=== PATIENT | female | born 1990 | race Two or more races ===

== ENCOUNTER 2020-08-27 14:08 | Outpatient (REF) | payer MEDICAID, SELFPAY ==
[2020-08-27 17:26] LABS: Syphilis Screen Nonreactive (Nonreactive)
[2020-08-28 01:50] LABS: CT PCR NOT DETECTED (Not Detect.); NG PCR NOT DETECTED (Not Detect.)
[2020-08-29 08:35] LABS: HBsAGNum1 0.14 S/CO (0.00-0.99); HIV AB/AG Nonreactive (Nonreactive); HIV Num 1 0.09 S/CO (0.00-0.99); Hepatitis B Surface Antigen Negative (Negative)
[2020-08-29 09:36] LABS: ~HepC Num1 0.15 S/CO (0.00-0.79); ~Hepatitis C Antibody Nonreactive (Nonreactive)
== END 2020-08-27 14:09 | disposition home or self-care (01) ==
LOC: HO.LAB 14:08
PROVIDERS: PCP Nurse Practitioner Family; Referring Provider Nurse Practitioner Family; Visit Provider Advanced Practice Midwife
DX: Z01.419 Encounter for gynecological examination (general) (routine) without abnormal findings (principal); R10.2 Pelvic and perineal pain; N94.10 Unspecified dyspareunia; Z20.2 Contact with and (suspected) exposure to infections with a predominantly sexual mode of transmission
CPT/HCPCS: 86780; 86803; 87340; 87389; 87491; 87591

== ENCOUNTER 2020-08-28 09:21 | Outpatient (REF) | payer MEDICAID, SELFPAY ==
[2020-08-31 07:48] LABS: HPV mRNA E6/E7 Not Detected (Not Detected)
== END 2020-08-28 09:22 | disposition home or self-care (01) ==
LOC: HO.LAB 09:21
PROVIDERS: Visit Provider Advanced Practice Midwife
DX: Z01.419 Encounter for gynecological examination (general) (routine) without abnormal findings (principal); Z20.2 Contact with and (suspected) exposure to infections with a predominantly sexual mode of transmission; Z11.4 Encounter for screening for human immunodeficiency virus [HIV]; Z11.8 Encounter for screening for other infectious and parasitic diseases; Z11.3 Encounter for screening for infections with a predominantly sexual mode of transmission; Z11.51 Encounter for screening for human papillomavirus (HPV)
CPT/HCPCS: 87624; 87625; 88142

== ENCOUNTER 2020-08-30 14:16 | Outpatient (REF) | payer MEDICAID, SELFPAY ==
--- NOTE | 2020-08-30 14:19 | US_ITS ---
EXAMINATION: US PELVIS CLINICAL INFORMATION: Pelvic and perineal pain. COMPARISON: None TECHNIQUE: Transabdominal and transvaginal ultrasound of the pelvis is performed. FINDINGS: The uterus is anteverted and anteflexed and measures 6.8 cm in length, 3.0 cm in AP and 4.3 cm in transverse dimension. The endometrial thickness is 0.2 cm. Uterus is homogeneous in echotexture without focal lesion. Right ovary measures 3.0 x 1.6 x 1.1 cm and volume 2.8 mL. There are multiple small follicles visualized. Previously right ovary measured 3.2 x 2.7 x 1.3 cm. Left ovary measures 2.4 x 1.6 x 1.0 cm and volume 2.0 mL. There are small follicular cysts seen. Previously left ovary measured 3.3 x 1.7 x 1.3 cm. There is no free fluid in the cul-de-sac. US/US transvaginal IMPRESSION: Unremarkable uterus. Unremarkable ovaries. No free fluid in the cul-de-sac.
--- NOTE | 2020-08-30 14:19 | US_ITS ---
EXAMINATION: US PELVIS CLINICAL INFORMATION: Pelvic and perineal pain. COMPARISON: None TECHNIQUE: Transabdominal and transvaginal ultrasound of the pelvis is performed. FINDINGS: The uterus is anteverted and anteflexed and measures 6.8 cm in length, 3.0 cm in AP and 4.3 cm in transverse dimension. The endometrial thickness is 0.2 cm. Uterus is homogeneous in echotexture without focal lesion. Right ovary measures 3.0 x 1.6 x 1.1 cm and volume 2.8 mL. There are multiple small follicles visualized. Previously right ovary measured 3.2 x 2.7 x 1.3 cm. Left ovary measures 2.4 x 1.6 x 1.0 cm and volume 2.0 mL. There are small follicular cysts seen. Previously left ovary measured 3.3 x 1.7 x 1.3 cm. There is no free fluid in the cul-de-sac. US/US pelvic limited IMPRESSION: Unremarkable uterus. Unremarkable ovaries. No free fluid in the cul-de-sac.
== END 2020-08-30 14:17 | disposition home or self-care (01) ==
LOC: HO.US 14:16
PROVIDERS: Visit Provider Advanced Practice Midwife
DX: R10.2 Pelvic and perineal pain (principal); N94.10 Unspecified dyspareunia
CPT/HCPCS: 76830; 76857

== ENCOUNTER → 2020-09-24 11:14 | Outpatient (BNVA) | payer MEDICAID, SELFPAY | PROVIDERS: Visit Provider Advanced Practice Midwife | DX: Z76.89 Persons encountering health services in other specified circumstances (principal) ==

== ENCOUNTER → 2020-11-13 11:35 | Outpatient (BNVA) | payer MEDICAID, SELFPAY | PROVIDERS: Visit Provider Advanced Practice Midwife | DX: Z76.89 Persons encountering health services in other specified circumstances (principal) ==

== ENCOUNTER → 2020-11-16 12:47 | Outpatient (BNVA) | payer MEDICAID, SELFPAY | PROVIDERS: Visit Provider Advanced Practice Midwife | DX: Z76.89 Persons encountering health services in other specified circumstances (principal) | CPT/HCPCS: 96372; 99211; J1050 ==

== ENCOUNTER → 2021-02-01 10:48 | Outpatient (BNVA) | payer MEDICAID, SELFPAY | PROVIDERS: PCP Nurse Practitioner Family; Visit Provider Advanced Practice Midwife | DX: Z30.42 Encounter for surveillance of injectable contraceptive (principal) | CPT/HCPCS: 96372; 99211; J1050 ==

== ENCOUNTER 2021-03-25 12:12 | Outpatient (REF) | payer MEDICAID, SELFPAY ==
[2021-03-25 13:02] LABS: COVID-19 Test Negative (Negative); IDNOW Serial# 55D5AD1C
== END 2021-03-25 12:13 | disposition home or self-care (01) ==
LOC: HO.LAB 12:12
PROVIDERS: Visit Provider Internal Medicine
DX: Z20.822 Contact with and (suspected) exposure to COVID-19 (principal)
CPT/HCPCS: 36415; 87635; C9803

== ENCOUNTER → 2021-04-22 12:50 | Outpatient (BNVA) | payer MEDICAID, SELFPAY | PROVIDERS: PCP Nurse Practitioner Family; Visit Provider Advanced Practice Midwife | DX: Z30.42 Encounter for surveillance of injectable contraceptive (principal) | CPT/HCPCS: 96372; 99211 ==

== ENCOUNTER → 2021-07-16 09:36 | Outpatient (BNVA) | payer MEDICAID, SELFPAY | PROVIDERS: Visit Provider Advanced Practice Midwife | DX: Z30.42 Encounter for surveillance of injectable contraceptive (principal); J30.1 Allergic rhinitis due to pollen; J30.89 Other allergic rhinitis; Z88.8 Allergy status to other drugs, medicaments and biological substances | CPT/HCPCS: 96372; 99211 ==

== ENCOUNTER 2021-08-27 11:12 | Outpatient (REF) | payer MEDICAID, SELFPAY | END 2021-08-27 11:13 | disposition home or self-care (01) | LOC: HO.LAB 11:12 | PROVIDERS: Visit Provider Internal Medicine | DX: Z20.822 Contact with and (suspected) exposure to COVID-19 (principal) | CPT/HCPCS: C9803; U0003; U0005 ==

== ENCOUNTER → 2021-10-10 11:10 | Outpatient (BNVA) | payer MEDICAID, SELFPAY | PROVIDERS: PCP Internal Medicine; Visit Provider Advanced Practice Midwife | DX: Z30.42 Encounter for surveillance of injectable contraceptive (principal) | CPT/HCPCS: 96372; 99211 ==

== ENCOUNTER 2021-10-23 08:55 | Outpatient (REF) | payer MEDICAID, SELFPAY ==
[2021-10-23 10:59] LABS: Hematocrit 38.7 % (37.0-47.0); Hemoglobin 12.6 g/dl (12.0-16.0); Mean Corpuscular HGB Conc 32.6 g/dl (31.0-35.0); Mean Corpuscular Hemoglobin 26.8 pg (27.0-33.0); Mean Corpuscular Volume 82.3 fL (80.0-98.0); Mean Platelet Volume 9.6 fL (9.4-12.3); Platelet Count 251 X10*3/uL (160-400); Red Cell Distribution Width 14.4 % (11.0-16.0); White Blood Count 8.2 X10*3/uL (4.8-10.8)
[2021-10-23 11:24] LABS: Alanine Aminotransferase 18 U/L (0-31); Albumin Level 4.2 g/dL (3.5-5.0); Alkaline Phosphatase 112 U/L (39-117); Anion Gap 10 (12-20); Aspartate Amino Transferase 16 U/L (5-31); Bilirubin Total 0.5 mg/dL (0.0-1.0); Blood Urea Nitrogen 10 mg/dL (9-16); Calcium 10.1 mg/dL (8.4-10.2); Carbon Dioxide 23 mmol/L (22-29); Chloride 112 mmol/L (96-108); Estimated Glomerular Filt Rate > 60; Glucose Random 77 mg/dL (60-115); Potassium 4.3 mmol/L (3.3-5.1); Sodium 141 mmol/L (135-145); Total Protein 7.3 g/dL (6.5-8.0)
== END 2021-10-23 08:56 | disposition home or self-care (01) ==
LOC: HO.LAB 08:55
PROVIDERS: PCP Internal Medicine; Referring Provider Internal Medicine; Visit Provider Nurse Practitioner Family
DX: K21.9 Gastro-esophageal reflux disease without esophagitis (principal); K59.00 Constipation, unspecified; F41.8 Other specified anxiety disorders; J30.1 Allergic rhinitis due to pollen; Z86.14 Personal history of Methicillin resistant Staphylococcus aureus infection; Z80.0 Family history of malignant neoplasm of digestive organs; Z88.8 Allergy status to other drugs, medicaments and biological substances
CPT/HCPCS: 36415; 80053; 85027; 99202

== ENCOUNTER 2022-01-03 09:30 | Outpatient (REF) | payer MEDICAID, SELFPAY ==
[2022-01-03 16:23] LABS: CT PCR NOT DETECTED (Not Detect.); NG PCR NOT DETECTED (Not Detect.)
[2022-01-04 09:59] LABS: BV Int Neg Control Negative (Negative); BV Int Pos Control Positive (Positive)
== END 2022-01-03 09:31 | disposition home or self-care (01) ==
LOC: HO.LAB 09:30
PROVIDERS: PCP Internal Medicine; Visit Provider Advanced Practice Midwife
DX: Z30.42 Encounter for surveillance of injectable contraceptive (principal); N89.8 Other specified noninflammatory disorders of vagina; R82.998 Other abnormal findings in urine; Z20.2 Contact with and (suspected) exposure to infections with a predominantly sexual mode of transmission
CPT/HCPCS: 87480; 87491; 87510; 87591; 87660; 96372

== ENCOUNTER 2022-01-06 10:53 | Outpatient (REF) | payer MEDICAID, SELFPAY ==
[2022-01-06 13:03] LABS: Syphilis Screen Nonreactive (Nonreactive)
[2022-01-07 05:33] LABS: HBc Num1 0.09 S/CO (0.00-0.79); Hepatitis B Core Antibody Nonreactive (Nonreactive); ~HepC Num1 0.11 S/CO (0.00-0.79); ~Hepatitis C Antibody Nonreactive (Nonreactive)
[2022-01-07 05:42] LABS: HIV AB/AG Nonreactive (Nonreactive); HIV Num 1 0.09 S/CO (0.00-0.99)
== END 2022-01-06 10:54 | disposition home or self-care (01) ==
LOC: HO.LAB 10:53
PROVIDERS: PCP Internal Medicine; Visit Provider Advanced Practice Midwife
DX: Z20.2 Contact with and (suspected) exposure to infections with a predominantly sexual mode of transmission (principal)
CPT/HCPCS: 36415; 86704; 86780; 86803; 87389

== ENCOUNTER 2022-02-04 12:26 | Day surgery (SDC) | payer MEDICAID, SELFPAY ==
[2022-01-30 14:59] VITALS: BMI 25.2
--- NOTE | 2022-02-03 10:31 | P.CONAN_ITS ---
Documented by User: Citlaly oKch NP 02/03/22 10:32 HPI - Anesthesia Eval Consult details Narrative: 31yo F for Colonoscopy PMFSH Active Problems Active Problems: All Active Problems (Updated 11/13/20 @ 13:24 by Gail Gimenez) Well woman exam with routine gynecological exam (Acute) Pelvic pain (Acute) Dyspareunia (Acute) Potential exposure to STD (Acute) control counseling (Acute) Depot contraception (Acute) Past Medical History Medical History Anxiety Depression GERD (gastroesophageal reflux disease) Migraine with aura MRSA (methicillin resistant Staphylococcus aureus) Poor weight gain in adult Family History Family History Mother HTN (hypertension) Colon cancer Surgical History Surgical History Hx of laparoscopy Social History Social History Alcohol intake: current Alcohol intake frequency: holidays/special occasions only Patient Tobacco Use Status: Former Tobacco user Quit Date: >1yr ago Use of substances other than those prescribed or required for medical reasons: No Are you DNR?: No Advance Directives: No Advance Directives Information Provided: Yes Gender identity: Female Meds Allergies Allergy/AdvReac Type Severity Reaction Status Date / Time Seasonal Allergies Allergy Intermediate Itchy Eyes Verified 02/04/22 13:05 trazodone Allergy Intermediate FACIAL Verified 02/04/22 13:05 SWELLING, swelling Home Medications Medication Instructions Recorded Confirmed Last Taken Type azelastine 205.5 mcg (0.15 %) 1 spray INTRANASAL BID 08/27/20 11/13/20 Unknown History nasal spray bupropion HCl 150 mg 24 hr tablet, 150 mg PO QAM 08/27/20 11/13/20 Unknown History extended release fluticasone propionate 50 1 spray INTRANASAL DAILY 08/27/20 11/13/20 Unknown History mcg/actuation nasal spray,suspension (Allergy Relief (fluticasone)) ibuprofen 800 mg tablet 800 mg PO Q8H 08/27/20 11/13/20 Unknown History diphenhydramine HCl 25 mg capsule 25 mg PO TID PRN 09/24/20 11/13/20 Unknown History (Benadryl) omeprazole 20 mg capsule,delayed 20 mg PO BID 10/23/21 Unknown History release Exam Exam Date and Time: February 03, 2022 1031 Height,Weight and Vital Signs: Height 5 ft 6 in Weight 70.76 kg Pertinent Lab Results Pertinent Lab Results: Laboratory Tests 10/23/21 10/23/21 10:26 10:26 WBC 8.2 Hgb 12.6 Hct 38.7 Plt Count 251 Sodium 141 Potassium 4.3 Chloride 112 H Carbon Dioxide 23 BUN 10 Creatinine 0.77 Assessment and Plan Assessment Anesthesia Assessment: Chart Reviewed Documented by User: Michael Bobo MD 02/04/22 13:33 [facility] Past Medical History Medical History Anxiety Depression GERD (gastroesophageal reflux disease) Migraine with aura MRSA (methicillin resistant Staphylococcus aureus) Poor weight gain in adult Family History Family History Mother HTN (hypertension) Colon cancer Surgical History Surgical History Hx of laparoscopy Social History Social History Alcohol intake: current Alcohol intake frequency: holidays/special occasions only Patient Tobacco Use Status: Former Tobacco user Quit Date: >1yr ago Use of substances other than those prescribed or required for medical reasons: No Are you DNR?: No Advance Directives: No Advance Directives Information Provided: Yes Gender identity: Female Meds Allergies Allergy/AdvReac Type Severity Reaction Status Date / Time Seasonal Allergies Allergy Intermediate Itchy Eyes Verified 02/04/22 13:05 trazodone Allergy Intermediate FACIAL Verified 02/04/22 13:05 SWELLING, swelling Home Medications Medication Instructions Recorded Confirmed Last Taken Type azelastine 205.5 mcg (0.15 %) 1 spray INTRANASAL BID 08/27/20 11/13/20 Unknown History nasal spray bupropion HCl 150 mg 24 hr tablet, 150 mg PO QAM 08/27/20 11/13/20 Unknown History extended release fluticasone propionate 50 1 spray INTRANASAL DAILY 08/27/20 11/13/20 Unknown History mcg/actuation nasal spray,suspension (Allergy Relief (fluticasone)) ibuprofen 800 mg tablet 800 mg PO Q8H 08/27/20 11/13/20 Unknown History diphenhydramine HCl 25 mg capsule 25 mg PO TID PRN 09/24/20 11/13/20 Unknown History (Benadryl) omeprazole 20 mg capsule,delayed 20 mg PO BID 10/23/21 Unknown History release Exam Airway Mallampati Class: II TM Dist: >3cm Neck ROM: Full Documented by User: Cholo Decker MD 02/04/22 13:24 [facility] Past Medical History Medical History Anxiety Depression GERD (gastroesophageal reflux disease) Migraine with aura MRSA (methicillin resistant Staphylococcus aureus) Poor weight gain in adult Family History Family History Mother HTN (hypertension) Colon cancer Family history of problems with anesthesia: No Surgical History Surgical History Hx of laparoscopy History of Problems with Anesthesia: No Social History Social History Alcohol intake: current Alcohol intake frequency: holidays/special occasions only Patient Tobacco Use Status: Former Tobacco user Quit Date: >1yr ago Use of substances other than those prescribed or required for medical reasons: No Are you DNR?: No Advance Directives: No Advance Directives Information Provided: Yes Gender identity: Female Meds Allergies Allergy/AdvReac Type Severity Reaction Status Date / Time Seasonal Allergies Allergy Intermediate Itchy Eyes Verified 02/04/22 13:05 trazodone Allergy Intermediate FACIAL Verified 02/04/22 13:05 SWELLING, swelling Home Medications Medication Instructions Recorded Confirmed Last Taken Type azelastine 205.5 mcg (0.15 %) 1 spray INTRANASAL BID 08/27/20 11/13/20 Unknown History nasal spray bupropion HCl 150 mg 24 hr tablet, 150 mg PO QAM 08/27/20 11/13/20 Unknown History extended release fluticasone propionate 50 1 spray INTRANASAL DAILY 08/27/20 11/13/20 Unknown History mcg/actuation nasal spray,suspension (Allergy Relief (fluticasone)) ibuprofen 800 mg tablet 800 mg PO Q8H 08/27/20 11/13/20 Unknown History diphenhydramine HCl 25 mg capsule 25 mg PO TID PRN 09/24/20 11/13/20 Unknown History (Benadryl) omeprazole 20 mg capsule,delayed 20 mg PO BID 10/23/21 Unknown History release Exam Airway Loose/Missing/Broken Teeth: No Heart: [id number] Lungs: cta b/l Assessment and Plan Assessment Anesthesia Assessment: Anesthesia Plan Discussed Final Anesthetic Review Family History of Problems with Anesthesia: No History of Problems with Anesthesia: No NPO: Yes ASA Class: II Final Preanesthetic Review: No Changes in Pt Med Stat, Meds/Allgs Chart Reviewed, Consent Obtained/Reviewed and Anes Risks/Benef Reviewed Patient Risk: Intermediate Procedure Risk: Low Assessment/Block/Sedation in SS: Assess/Block/Sedation-SS Anesthetic Plan Anesthetic Plan: MAC: and Agree w/ Assess. and Plan Disposition: Standard PACU
[2022-02-04 13:03] LABS: UPreg QC Valid YES; Urine Pregnancy NEGATIVE (NEGATIVE)
--- NOTE | 2022-02-04 13:03 | P.HPSUR_ITS ---
Pre-Procedural Eval Section A Date of Service: 02/04/22 Section B Chief Complaint: screening Details of Present Illness: FH CRC in mother Relevant Family History (Specify if Yes): Yes Relevant Social History: None Present Medications: see Short Stay Collaborative assessment Medical History: Significant History (Anxiety Depression GERD (gastroesophageal reflux disease) Migraine with aura MRSA (methicillin resistant Staphylococcus aureus) Poor weight gain in adult) History of Previous Operations: Relevant previous surgery/procedure and date(s) (laparoscopy) Allergies: Allergies Allergy/AdvReac Type Severity Reaction Status Date / Time Seasonal Allergies Allergy Intermediate Itchy Eyes Verified 01/30/22 11:25 trazodone Allergy Intermediate FACIAL Verified 01/03/22 09:59 SWELLING, swelling Review of Systems Sugical H&P ROS: Negative: Constitution, Cardiovascular, Respiratory, Neurological, Psychiatric, Hem-Onc, Allergic/Immunologic, Gastrointestinal, Genitourinary, Musculoskeletal, Integumentary, Endocrine and E yes/Ears/Nose/Throat Exam Surgical H&P Exam: Normal: HEENT, Normal: Heart, Normal: Lungs, Normal: Extremities, Normal: Abdomen, Normal: Skin and Normal: Neurological Plan Diagnosis/Plan: Unchanged I have reviewed the history and physical and performed a pertinent physical examination on my patient. No changes have occurred unless specified.
[2022-02-04 13:05] VITALS: BP 131/85; PULSE 86; RESP 16; TEMP 36.7; O2SAT 100
[2022-02-04] MEDS: Lactated Ringers 1,000 ML 100 ML IVCONT (13:14)
--- NOTE | 2022-02-04 13:29 | PM.OP ---
Brief Operative Note Date of Service: 02/04/22 Pre-op diagnosis: screening colonoscopy, FH of CRC in mother Post-op diagnosis: same Procedure: see op note Surgeon: Mervat England MD Anesthesia: MAC Was an Personal Finance Instructor used for this Procedure?: No Estimated blood loss (mL): 0 Condition: stable Disposition: PACU
--- NOTE | 2022-02-04 13:29 | W.PM.OPN ---
Operative Note Operative Note Date of Service: 02/04/22 Narrative: Operative Information Procedure Description: Colonoscopy Indication: screening colonoscopy, FH of CRC in mother Anesthesia: MAC COLONOSCOPY Instrument: Olympus variable stiffness pediatric scope 190L Colonoscopy Monitoring: Vital signs and clinical assessment, continuous EKG monitoring, Pulse oximetry, Carbon Dioxide monitoring and blood pressure monitoring were done throughout the procedure. Colon withdrawal time was 6 minutes. Procedure: The patient was placed in the left lateral decubitis position and pre-procedure medications were administered. After a digital rectal examination of the ano-rectum, the video colonoscope was inserted into the rectum and advanced through the colon to the cecum/TI. The colonoscope was slowly withdrawn in a retrograde panoramic fashion and the colon mucosa was carefully examined including a retroflexed view of the rectum. Findings and interventions are described below. Procedure Difficulty: easy Findings: Terminal Ileum-normal right sided retroflexion was normal Cecum:normal, there was a bulge on the lateral wall of the cecum seemed to be extrinsic Ascending Colon: normal Transverse Colon -normal Descending Colon:normal Sigmoid Colon: normal Rectum: Retroflexion with small internal hemorrhoids, grade I Anorectum - normal Colon preparation: [facility] Bowel Preparation Scale Right colon; 2 Transverse colon: 3 Left colon; 2 (0 = Unprepared colon segment with mucosa not seen due to solid stool that cannot be cleared. 1 = Portion of mucosa of the colon segment seen, but other areas of the colon segment not well seen due to staining, residual stool and/or opaque liquid. 2 = Minor amount of residual staining, small fragments of stool and/or opaque liquid, but mucosa of colon segment seen well. 3 = Entire mucosa of colon segment seen well with no residual staining, small fragments of stool or opaque liquid) Impression and Post Procedure Diagnosis: internal hemorrhoids extrinsic pressure on cecum Plan: High fiber diet leaflet Avoid straining at stool, epsom salts and sitz bath, anusol supps or cream Repeat Colonoscopy in 5 years due to FH of CRC or earlier if clinically indicated Last transvaginal US 2019 was unremarkable, will d/w patient about getting a Ct scan Above findings were reviewed with the patient and relevant handouts were provided if indicated.
[2022-02-04 13:50] VITALS: BP 112/67; PULSE 76; RESP 16; TEMP 37; O2SAT 99
[2022-02-04 14:05] VITALS: BP 118/53; PULSE 72; RESP 16; TEMP 36.7; O2SAT 100
== END 2022-02-04 14:44 | disposition home or self-care (01) ==
PROVIDERS: Nurse Practitioner; PCP Internal Medicine; Visit Provider Internal Medicine Gastroenterology
PROC: 0DJD8ZZ Inspection of Lower Intestinal Tract, Via Natural or Artificial Opening Endoscopic (ICD-10-PCS; CPT 45378; principal; 2022-02-04 13:30)
DX: Z12.11 Encounter for screening for malignant neoplasm of colon (principal); Z80.0 Family history of malignant neoplasm of digestive organs; K63.89 Other specified diseases of intestine; K64.0 First degree hemorrhoids; K21.9 Gastro-esophageal reflux disease without esophagitis; R63.5 Abnormal weight gain; Z68.25 Body mass index [BMI] 25.0-25.9, adult; G43.109 Migraine with aura, not intractable, without status migrainosus; F32.9 Major depressive disorder, single episode, unspecified; Z79.899 Other long term (current) drug therapy; Z88.8 Allergy status to other drugs, medicaments and biological substances; Z86.14 Personal history of Methicillin resistant Staphylococcus aureus infection; Z87.891 Personal history of nicotine dependence
CPT/HCPCS: 45378; 81025

== ENCOUNTER 2022-02-24 08:32 | Outpatient (REF) | payer MEDICAID, SELFPAY ==
--- NOTE | ~2022-02-24 | CT_ITS ---
EXAMINATION: CT ABDOMEN AND PELVIS WITH CONTRAST CLINICAL INFORMATION: Extrinsic compression of cecum and right colon. COMPARISON: None TECHNIQUE: Multidetector volumetric images were obtained from the superior aspect of the liver through the pubic symphysis following administration 85 mL of Omnipaque 350 intravenous contrast. Sagittal and coronal reformatted images were obtained on the technologist's workstation. Oral contrast: Yes previous pelvic ultrasound August [address] of the abdomen and pelvis April [address] examination was performed using dose optimization techniques as appropriate, variously including the following: *Automated exposure control *Adjustment of mA and/or kV according to patient size (this includes techniques or standardized protocols for targeted exams where dose is matched to indication/reason for exam; i.e. extremities or head) *Use of iterative reconstruction technique DLP: 372 mGy-cm FINDINGS: LUNG BASES: The visualized lung bases are unremarkable. LIVER, GALLBLADDER, AND BILIARY TREE: The liver is normal in size, shape, and attenuation. There is a small 5 mm low-attenuation lesion in the central liver. This is too small to thoroughly characterize but probably represents a small cyst. No other focal liver lesion. There is a tiny gallstone in the gallbladder. The gallbladder is otherwise normal. There is no intra or extrahepatic biliary duct dilatation. PANCREAS: Unremarkable SPLEEN: Unremarkable. ADRENAL GLANDS: Unremarkable. KIDNEYS AND URETERS: The kidneys are normal in size, shape, and attenuation. No hydronephrosis, hydroureter, or calculi seen. No perinephric stranding. BLADDER: Unremarkable. GASTROINTESTINAL TRACT: There is stool throughout the colon. The small and large bowel are unremarkable. The cecum is located low in the pelvis. The appendix is unremarkable. ABDOMINAL WALL: There is a small umbilical hernia containing fat. LYMPH NODES: Normal. VASCULAR: Unremarkable. PELVIC VISCERA: Unremarkable. OSSEOUS STRUCTURES: Unremarkable. CT/CT abdomen pelvis w con IMPRESSION: Stool throughout the colon. No mass is seen. Tiny gallstone in the gallbladder. Probable small liver cyst. Fleischner guidelines were followed.
[2022-02-24] MEDS: Barium Sulfate Oral (Berry) 450 ML ORAL.SUSP PO (10:51)
[2022-02-24] MEDS: iohexoL 350 MG/ML 100 ML INFUS..BTL IV ×2 (10:52→10:53)
== END 2022-02-24 08:33 | disposition home or self-care (01) ==
LOC: HO.CT 08:32
PROVIDERS: PCP Internal Medicine; Visit Provider Internal Medicine Gastroenterology
DX: R93.3 Abnormal findings on diagnostic imaging of other parts of digestive tract (principal)
CPT/HCPCS: 74177; Q9967

== ENCOUNTER → 2022-02-25 09:24 | Outpatient (BNVA) | payer MEDICAID, SELFPAY | PROVIDERS: PCP Internal Medicine; Referring Provider Internal Medicine; Visit Provider Nurse Practitioner Family | DX: K59.01 Slow transit constipation (principal); R93.3 Abnormal findings on diagnostic imaging of other parts of digestive tract; Z98.890 Other specified postprocedural states | CPT/HCPCS: 99212 ==

== ENCOUNTER → 2022-03-28 09:02 | Outpatient (BNVA) | payer MEDICAID, SELFPAY | PROVIDERS: PCP Internal Medicine; Visit Provider Advanced Practice Midwife | DX: Z30.42 Encounter for surveillance of injectable contraceptive (principal) | CPT/HCPCS: 96372; 99211 ==

== ENCOUNTER 2022-04-29 14:00 | Outpatient (RCR) | payer MEDICAID, SELFPAY | END 2022-05-09 15:02 | disposition home or self-care (01) | LOC: HO.PT 14:00 | PROVIDERS: PCP Internal Medicine; Visit Provider Internal Medicine | DX: M54.9 Dorsalgia, unspecified (principal) | CPT/HCPCS: 97110; 97112; 97140; 97161 ==

== ENCOUNTER → 2022-06-20 08:39 | Outpatient (BNVA) | payer MEDICAID, SELFPAY | PROVIDERS: PCP Internal Medicine; Visit Provider Advanced Practice Midwife | DX: Z30.42 Encounter for surveillance of injectable contraceptive (principal) | CPT/HCPCS: 96372; 99211 ==

== ENCOUNTER → 2022-09-12 10:52 | Outpatient (BNVA) | payer MEDICAID, SELFPAY | PROVIDERS: PCP Internal Medicine; Visit Provider Advanced Practice Midwife | DX: Z30.42 Encounter for surveillance of injectable contraceptive (principal) | CPT/HCPCS: 96372; 99211 ==

== ENCOUNTER 2022-11-27 13:24 | Outpatient (REF) | payer MEDICAID, SELFPAY ==
[2022-11-28 05:46] LABS: Syphilis Screen Nonreactive (Nonreactive)
[2022-11-28 06:16] LABS: HIV AB/AG Nonreactive (Nonreactive); HIV Num 1 0.05 S/CO (0.00-0.99); Hepatitis B Core Antibody Nonreactive (Nonreactive); ~Hepatitis C Antibody Nonreactive (Nonreactive)
[2022-11-29 04:29] LABS: Follicle Stimulating Hormone 6.7 mIU/mL
== END 2022-11-27 13:25 | disposition home or self-care (01) ==
LOC: HO.LAB 13:24
PROVIDERS: PCP Internal Medicine; Visit Provider Advanced Practice Midwife
DX: Z11.4 Encounter for screening for human immunodeficiency virus [HIV] (principal); R23.2 Flushing; Z20.2 Contact with and (suspected) exposure to infections with a predominantly sexual mode of transmission
CPT/HCPCS: 36415; 83001; 84443; 86704; 86780; 86803; 87389; 99212

== ENCOUNTER → 2022-12-09 09:00 | Outpatient (BNVA) | payer MEDICAID, SELFPAY | PROVIDERS: PCP Internal Medicine; Visit Provider Advanced Practice Midwife | DX: Z30.42 Encounter for surveillance of injectable contraceptive (principal) | CPT/HCPCS: 96372; 99211 ==

== ENCOUNTER 2023-01-06 10:03 | Outpatient (REF) | payer MEDICAID, SELFPAY ==
[2023-01-06 15:29] LABS: CT PCR NOT DETECTED (Not Detect.); NG PCR NOT DETECTED (Not Detect.)
[2023-01-07 09:38] LABS: BV Int Neg Control Negative (Negative); BV Int Pos Control Positive (Positive)
== END 2023-01-06 10:04 | disposition home or self-care (01) ==
LOC: HO.LAB 10:03
PROVIDERS: PCP Internal Medicine; Visit Provider Advanced Practice Midwife
DX: R10.2 Pelvic and perineal pain (principal); Z20.2 Contact with and (suspected) exposure to infections with a predominantly sexual mode of transmission; R23.2 Flushing
CPT/HCPCS: 0353U; 87480; 87510; 87660

== ENCOUNTER 2023-01-06 10:34 | Outpatient (REF) | payer MEDICAID, SELFPAY | END 2023-01-06 10:35 | disposition home or self-care (01) | LOC: HO.LNP 10:34 | PROVIDERS: Visit Provider Advanced Practice Midwife | DX: Z13.89 Encounter for screening for other disorder (principal) ==

== ENCOUNTER → 2023-02-24 08:55 | Outpatient (BNVA) | payer MEDICAID, SELFPAY | PROVIDERS: PCP Internal Medicine; Visit Provider Nurse Practitioner Family | DX: K21.9 Gastro-esophageal reflux disease without esophagitis (principal); K59.01 Slow transit constipation | CPT/HCPCS: 99212 ==

== ENCOUNTER 2023-05-03 22:03 | Emergency (ER) | payer MEDICAID, SELFPAY ==
[2023-05-03 22:07] VITALS: BP 138/77; PULSE 67; RESP 18; TEMP 36.8; O2SAT 95; BMI 25.8
[2023-05-03 22:50] LABS: Anion Gap 13 (12-20); Blood Urea Nitrogen 14 mg/dL (9-16); Calcium 9.8 mg/dL (8.4-10.2); Carbon Dioxide 18 mmol/L (22-29); Chloride 110 mmol/L (96-108); Creatinine Clr Calc Pharmacy 118.2; Estimated Glomerular Filt Rate > 60; Glucose Random 92 mg/dL (60-115); Potassium 3.3 mmol/L (3.3-5.1); Sodium 138 mmol/L (135-145)
[2023-05-04 00:27] VITALS: BP 120/88; PULSE 65; RESP 18; TEMP 36.6; O2SAT 100
--- NOTE | 2023-05-04 00:29 | PC.NURSE ---
pt brought into ED room 11 from waiting room. ambulates into treatment room with no issues. placed on court recording monitor, waiting to be seen by ED provider. call de luna within reach will CTM
--- NOTE | 2023-05-04 00:53 | ED.SOB ---
HPI - SOB/Dyspnea General Chief Complaint: Dyspnea Stated Complaint: difficulty breathing Time Seen by Provider: 05/04/23 00:12 Source: patient Mode of arrival: ambulatory Limitations: no limitations History of Present Illness HPI Narrative: 33-year-old female came in for evaluation of sinus pressure, nasal congestion, difficulty breathing due to nasal congestion unable to breathe through her nose, patient is able breathe from the mouth and feels dry. Related Data Home Medications Medication Instructions Recorded Confirmed azelastine 205.5 mcg (0.15 %) 1 spray intranasal BID 08/27/20 11/13/20 nasal spray bupropion HCl 150 mg 24 hr tablet, 150 mg PO QAM 08/27/20 11/13/20 extended release fluticasone propionate 50 1 spray intranasal DAILY 08/27/20 11/13/20 mcg/actuation nasal spray,suspension (Allergy Relief (fluticasone)) ibuprofen 800 mg tablet 800 mg PO Q8H 08/27/20 11/13/20 diphenhydramine HCl 25 mg capsule 25 mg PO TID PRN 09/24/20 11/13/20 (Benadryl) duloxetine 30 mg capsule,delayed 30 mg PO BEDTIME 02/24/23 release melatonin 3 mg tablet 3 mg PO BEDTIME PRN insomnia 02/24/23 Previous Rx's Medication Instructions Recorded hydrocortisone 2.5 % topical cream 1 appl UT BID-QID PRN hemorrhoids 04/29/22 with perineal applicator #30 grams (Proctosol HC) medroxyprogesterone 150 mg/mL 150 mg IM Q12W 84 days #1 mL 01/06/23 intramuscular suspension docusate sodium 100 mg capsule 100 mg PO BEDTIME #90 caps 02/24/23 omeprazole 20 mg capsule,delayed 20 mg PO BID #180 caps 02/24/23 release sennosides 8.6 mg tablet (Natural 17.2 mg PO BEDTIME constipation 30 02/24/23 Senna Laxative) days #60 tabs amoxicillin 875 mg-potassium 1 tab PO BID #20 tabs 05/04/23 clavulanate 125 mg tablet oxymetazoline 0.05 % nasal spray 2 spray intranasal Q12H PRN nasal 05/04/23 (Afrin (oxymetazoline)) congestion 3 days #22 mL prednisone 20 mg tablet 20 mg PO BID #10 tabs 05/04/23 Allergies Allergy/AdvReac Type Severity Reaction Status Date / Time Seasonal Allergies Allergy Intermediate Itchy Eyes Verified 02/24/23 09:00 trazodone Allergy Intermediate FACIAL Verified 02/24/23 09:00 SWELLING, swelling Review of Systems Review of Systems: All other systems are reviewed and are negative Constitutional: Reports as per HPI and Reports no additional constitutional complaints Eyes: Reports as per HPI and Reports no additional eye complaints Reports system reviewed and no additional complaints, except as documented Cardiovascular: Reports as per HPI and Reports no additional cardiovascular complaints Respiratory: Reports as per HPI and Reports no additional respiratory complaints Gastrointestinal: Reports as per HPI and Reports no additional gastrointestinal complaints Genitourinary: Reports no additional female genitourinary complaints Musculoskeletal: Reports no additional musculoskeletal complaints Skin/Breast: Reports system reviewed and no additional complaints, except as docu Psychiatric: Reports no additional psychiatric complaints Endocrine: Reports no additional endocrine complaints Hematologic/Lymphatic: Reports no additional hematologic/lymphatic complaints Allergic/Immunologic: Reports no additional allergic/immunologic complaints Reports system reviewed and no additional complaints, except as documented and Reports Abnormal speech present [facility] Past Medical History Medical History Anxiety Depression GERD (gastroesophageal reflux disease) Migraine with aura MRSA (methicillin resistant Staphylococcus aureus) Poor weight gain in adult Surgical History Hx of laparoscopy Family History Family History Mother HTN (hypertension) Colon cancer Father Diabetes mellitus Social History Social History Alcohol intake: current Alcohol intake frequency: holidays/special occasions only Patient Tobacco Use Status: Former Tobacco user Quit Date: >1yr ago Advance Directives: No Advance Directives Information Provided: No Gender identity: Female Physical Exam Vital Signs: Vital Signs: Last Vital Signs Temp 97.9 F 05/04/23 00:27 Pulse 65 05/04/23 00:27 Resp 18 05/04/23 00:27 BP 120/88 05/04/23 00:27 Pulse Ox 100 05/04/23 00:27 O2 Del Method Room Air 05/04/23 00:27 BMI result Body Mass Index 25.8 Vital signs have been reviewed as appeared to be correct. Blood pressure normal. Heart rate normal. Respiration rate normal. Temperature normal. Oxygen saturation normal. Appearance: Alert. Oriented X3. No acute distress. Head: Normal external exam. Normocephalic. Atraumatic. No Lisa signs noted. No raccoon eyes noted, right frontal and maxillary sinus tenderness on percussion. Eyes: PERRLA. EOMI. Conjunctiva and sclera normal. Eyelids normal. ENT: TM's Normal. Pharynx normal. Uvula midline. Moist mucous membranes. No trismus noted. No drooling noted. No muffled voice noted. Neck: Normal inspection. Neck supple. FROM. No adenopathy. Thyroid Normal. No meningeal signs. No neck mass noted. CVS: Normal heart rate and rhythm. Heart sound normal. No murmurs noted. Pulses normal throughout. Respiratory: No respiratory distress. Painless inspiration. Breath sounds normal. No wheezes/rales/rhonchi noted. Chest nontender. No accessory muscle usage noted or decreased air movement noted. Abdomen: Soft and nontender. Bowel sounds normal in all 4 quadrants. No distention noted. No organomegaly noted. No visible injury noted. Back: No CVA tenderness. Full range of motion noted. Skin: Skin warm and dry. Normal skin color. Normal skin turgor. No rashes/lesions/lacerations noted. Extremities: No lower extremity edema. Extremities exhibit normal range of motion. Extremities nontender. Neuro: Oriented X 3. Cranial nerve exam: II-XII are grossly intact No motor deficit. No sensory deficit. Reflexes normal. Course Course Course Narrative: Acute right frontal right maxillary sinusitis, due to nasal congestion patient is able to breathe through her mouth making her mouth dry, no recent travel, no lower extremities swelling or tenderness, negative D-dimer, exam is consistent with right maxillary/frontal sinusitis with nasal congestion causing the patient to breathe from her mouth and feels difficulty breathing. Medical Decision Making Differential Diagnosis Differential Diagnoses: The differential diagnosis associated with the presentation includes (Pneumonia, pneumothorax, bronchitis, sinusitis, nasal congestion, electrolyte abnormalities, pulmonary embolism, severe anemia.) Lab Data MDM Lab Attestation statement: I reviewed the patient's lab results. 05/03/23 22:26 05/03/23 22:26 Labs: Lab Results 05/03/23 05/03/23 05/03/23 Range/Units 22:26 22:26 22:26 WBC 8.4 (4.8-10.8) X10*3/uL RBC 4.29 (4.20-5.50) X10*6/uL Hgb 11.9 L (12.0-16.0) g/dl Hct 35.0 L (37.0-47.0) % MCV 81.6 (80.0-98.0) fL MCH 27.7 (27.0-33.0) pg MCHC 34.0 (31.0-35.0) g/dl RDW 14.0 (11.0-16.0) % Plt Count 234 (160-400) X10*3/uL MPV 9.6 (9.4-12.3) fL Immature Gran % (Auto) 0.2 (0.0-0.4) % Neut % (Auto) 46.8 (45-73) % Lymph % (Auto) 42.0 H (20-40) % [place] % (Auto) 9.3 (2-11) % Eos % (Auto) 1.3 (0-4) % Baso % (Auto) 0.4 (0-2) % Lymph # (Auto) 3.5 (1.2-4.9) X10*3/uL [place] # (Auto) 0.8 (0.1-1.2) X10*3/uL Eos # (Auto) 0.1 (0.0-0.4) X10*3/uL Baso # (Auto) 0.0 (0.0-0.2) X10*3/uL Abs Immat Gran (auto) 0.02 (0.00-0.03) X10*3/uL Absolute Neuts (auto) 3.9 (2.0-8.3) x10*3/uL Absolute Nucleated RBC 0.000 (0.0-0.012) X10*3/uL Nucleated RBC % (auto) 0.0 (0.0-0.2) /100WBC D-Dimer High Sensitivty < 150 NG/ML Sodium 138 (135-145) mmol/L Potassium 3.3 D (3.3-5.1) mmol/L Chloride 110 H (96-108) mmol/L Carbon Dioxide 18 L (22-29) mmol/L Anion Gap 13 (12-20) BUN 14 (9-16) mg/dL Creatinine 0.69 (0.5-1.4) mg/dL Estim Creat Clear Calc 118.2 Estimated GFR > 60 Random Glucose 92 (60-115) mg/dL Calcium 9.8 (8.4-10.2) mg/dL Independent Interpretation I performed an independent interpretation of an: Plain X-Ray (Chest: No acute thoracic pathology.) Radiology Impression Discussion of test interpretation with radiology: I have reviewed the radiologist's reading. Discharge Plan Discharge Clinical Impression: Sinusitis Patient Disposition: Home, Self-Care Instructions: Sinusitis (ED) Prescriptions: New amoxicillin-pot clavulanate 875-125 mg tablet 1 tab PO BID Qty: 20 0RF oxymetazoline [Afrin (oxymetazoline)] 0.05 % spray,non-aerosol 2 spray intranasal Q12H PRN (Reason: nasal congestion) 3 Days Qty: 22 0RF prednisone 20 mg tablet 20 mg PO BID Qty: 10 0RF No Action hydrocortisone [Proctosol HC] 2.5 % cream with perineal applicator 1 appl UT BID-QID PRN (Reason: hemorrhoids) Qty: 30 2RF azelastine 0.15 % (205.5 mcg) spray,non-aerosol 1 spray intranasal BID Rx Instructions: administer into each nostril fluticasone propionate [Allergy Relief (fluticasone)] 50 mcg/actuation spray,suspension 1 spray intranasal DAILY Rx Instructions: administer into each nostril bupropion HCl 150 mg tablet extended release 24 hr 150 mg PO QAM ibuprofen 800 mg tablet 800 mg PO Q8H diphenhydramine HCl [Benadryl] 25 mg capsule 25 mg PO TID PRN melatonin 3 mg tablet 3 mg PO BEDTIME PRN (Reason: insomnia) duloxetine 30 mg capsule,delayed release(DR/EC) 30 mg PO BEDTIME docusate sodium 100 mg capsule 100 mg PO BEDTIME Qty: 90 4RF sennosides [Natural Senna Laxative] 8.6 mg tablet 17.2 mg PO BEDTIME 30 Days Qty: 60 3RF omeprazole 20 mg capsule,delayed release(DR/EC) 20 mg PO BID Qty: 180 2RF medroxyprogesterone 150 mg/mL suspension 150 mg IM Q12W 84 Days Qty: 1 4RF Referrals: [facility] [Primary Care Provider] -
== END 2023-05-04 01:29 | disposition home or self-care (01) ==
PROVIDERS: Emergency Provider Emergency Medicine
DX: J32.9 Chronic sinusitis, unspecified (principal); R06.00 Dyspnea, unspecified; Z79.899 Other long term (current) drug therapy
CPT/HCPCS: 36415; 71046; 80048; 85025; 85379; 93005; 99283; 99284

== ENCOUNTER 2023-05-28 14:17 | Outpatient (AMB) | payer MEDICAID, SELFPAY ==
--- NOTE | 2023-05-28 14:27 | A.OFFVIS_ITS ---
Intake Vital Signs 05/28/23 14:30 Height 5 ft 6 in Weight 153 lb BMI 24.7 BP 102/62 Intake Visit Reasons: depo restart Intake Note: The patient agreed to use of a medical research assistant during this encounter. Scribed for BRIAN Vilchis by Tena Tipton medical research assistant, on 05/28/2023 at 2:50 pm EST. Allergies Seasonal Allergies Allergy (Intermediate, Verified 05/28/23 14:33) Itchy Eyes trazodone Allergy (Intermediate, Verified 05/28/23 14:33) FACIAL SWELLING, swelling HPI HPI Comments History of Present Illness Details She is here for Depo restart; overdue 5 months UPI this week on Thursday, new partner. STD testing offered; she accepts. LMP 05/19/23. Denies vaginal itching and irritation. [facility] Medical History Anxiety Depression GERD (gastroesophageal reflux disease) Migraine with aura MRSA (methicillin resistant Staphylococcus aureus) Poor weight gain in adult Surgical History Hx of laparoscopy Family History Mother HTN (hypertension) Colon cancer Father Diabetes mellitus Social History Alcohol intake: current Alcohol intake frequency: holidays/special occasions only Patient Tobacco Use Status: Former Tobacco user Quit Date: >1yr ago Gender identity: Female Female Reproductive History Menstrual Age of Menarche: 13 Duration of menses: 3-5 days Date of last menstrual period: 05/19/23 control method: progesterone injection Physical Exam Vital Signs: Last Vital Signs BP 102/62 05/28/23 14:30 BMI result Body Mass Index 24.7 Const General: cooperative, healthy appearing, comfortable, no acute distress, well developed, alert and awake Other: General: Yes bladder normal to palpation External Female Exam: normal external appearance and normal appearance of the urethra Speculum Exam - Vagina: normal appearance of the vagina, normal palpation and normal vaginal discharge Speculum Exam - Cervix: normal appearance of the cervix and normal palpation Bimanual exam- vagina & uterus: normal bimanual exam, normal palpation, bladder normal to palpation and normal palpation Bimanual Exam- Adnexa, other: normal adnexae and no masses Results AMB Test Urine AMB Test Urine Negative Last Edit by LELIA Bermudez on 05/28/23 14:45 Results Reviewed Results Reviewed: Laboratory Last Values [facility] Negative 05/28/23 14:45 Assessment & Plan Assessment & Plan (1) control counseling: Code(s): Z30.09 - Encounter for other general counseling and advice on contraception Plan: Discussed: No UPI for 2 weeks prior to first injection. must have a negative HCG at time of first injection, then use BUM x 7d. Encouraged condoms always to prevent STD's. BV testing and GC/CT panel done today. Await results and treat accordingly. Instructed to monitor periods and contact the office with any concerns. All of her questions and concerns were addressed to the best of my ability and shared decision making. She is agreeable to plan of care. (2) Potential exposure to STD: Code(s): Z20.2 - Contact with and (suspected) exposure to infections with a predominantly sexual mode of transmission Plan Orders: Orders Bacterial Vaginosis Panel Today N89.8 - Other specified noninflammatory disorders of vagina, Z20.2 - Contact with and (suspected) exposure to infections with a predominantly sexual mode of transmission CT NG by PCR Today N89.8 - Other specified noninflammatory disorders of vagina, Z20.2 - Contact with and (suspected) exposure to infections with a predominantly sexual mode of transmission AMB HCG Urine Test Today Z32.02 - Encounter for test, result negative Coding Level of Care Code Est Pt Level 3 (38198) Diagnoses control counseling Z30.09 Potential exposure to STD Z20.2
[2023-05-28 14:30] VITALS: BP 102/62; BMI 24.7
== END 2023-05-28 15:02 | disposition home or self-care (01) ==
LOC: HO.HWS 14:17
PROVIDERS: Visit Provider Advanced Practice Midwife
DX: Z30.09 Encounter for other general counseling and advice on contraception (principal); Z20.2 Contact with and (suspected) exposure to infections with a predominantly sexual mode of transmission; Z32.02 Encounter for pregnancy test, result negative
CPT/HCPCS: 99213

== ENCOUNTER 2023-05-28 14:17 | Outpatient (REF) | payer MEDICAID, SELFPAY | END 2023-05-28 14:18 | disposition home or self-care (01) | LOC: HO.LNP 14:17 | PROVIDERS: Visit Provider Advanced Practice Midwife | DX: Z30.09 Encounter for other general counseling and advice on contraception (principal); Z20.2 Contact with and (suspected) exposure to infections with a predominantly sexual mode of transmission | CPT/HCPCS: 81025; 99213 ==

== ENCOUNTER 2023-05-28 15:00 | Outpatient (REF) | payer MEDICAID, SELFPAY ==
[2023-05-29 02:44] LABS: CT PCR NOT DETECTED (Not Detect.); NG PCR NOT DETECTED (Not Detect.)
[2023-05-29 13:20] LABS: BV Int Neg Control Negative (Negative); BV Int Pos Control Positive (Positive)
== END 2023-05-28 15:01 | disposition home or self-care (01) ==
LOC: HO.LAB 15:00
PROVIDERS: Visit Provider Advanced Practice Midwife
DX: N89.8 Other specified noninflammatory disorders of vagina (principal); Z20.2 Contact with and (suspected) exposure to infections with a predominantly sexual mode of transmission
CPT/HCPCS: 0353U; 87480; 87510; 87660

== ENCOUNTER 2023-06-11 08:50 | Outpatient (AMB) | payer MEDICAID, SELFPAY ==
[2023-06-11 09:11] VITALS: BMI 24.4
--- NOTE | 2023-06-11 09:11 | AM.OFFVISNUR ---
Intake Vital Signs 06/11/23 09:11 Height 5 ft 6 in Weight 151 lb BMI 24.4 Intake Visit Reasons: DEPO Allergies Seasonal Allergies Allergy (Intermediate, Verified 05/28/23 14:33) Itchy Eyes trazodone Allergy (Intermediate, Verified 05/28/23 14:33) FACIAL SWELLING, swelling Nursing Note Pt is here for Depo restart. Pt denies UPI in last 2 weeks. UPT negative. Pt was advised to use BUM x7 days. Pt reports she has lost 12 lbs in last 6 months while she was off Depo. Pt tolerated injection well. She will schedule her next injection for 12 weeks. Pt verbalizes understanding and agrees with plan. No further questions. Office Procedures Depo Questionnaire If YES to any of the following questions, please consult a provider. Menstrual pattern since last injection has been: Not Applicable test in office results: Negative Irregular bleeding?: No Breast lumps or other breast changes?: No Changes in weight or appetite?: Yes Depression or changes in mood?: No Abnormal hair growth or loss?: No Skin problems (rash, acne, discoloration)?: No Pain at the injection site?: No Headaches?: No Nervousness?: No Abdominal pain or cramping?: No Dizziness or nausea?: No Fatigue or weakness?: No Decrease in sexual drive?: No Chest pain or shortness of breath?: No Swelling in arms or legs?: No Any other problems or concerns?: Pt has lost 12 lbs in last 6 months while she was off Depo Form completed by?: Ashely Breaux community director Meds Depo-Provera Performing Provider: Celia De La Garza CNM Administered by: Ashely Breaux on 06/11/23 09:16 Dose Route Admin Location Lot Number Expiration Date [facility] 150 mg IM LGM [id number] 11/01/24 50452-760-20 [facility] Results AMB Test Urine AMB Test Urine Negative Last Edit by Ashely Breaux on 06/11/23 09:16 Coding Level of Care Code Established Pt Est Pt Level 1 (73454) Patient Type Established History Problem Focused Medical Decision Making Straight Forward Diagnoses Time Spent (min) 15 Assessment & Plan Assessment & Plan Orders: Orders AMB Medroxyprogesterone Injection Patient Supplied Today Z30.42 - Encounter for surveillance of injectable contraceptive
== END 2023-06-11 09:08 | disposition home or self-care (01) ==
LOC: HO.HWS 08:51
PROVIDERS: Visit Provider Advanced Practice Midwife
DX: Z30.42 Encounter for surveillance of injectable contraceptive (principal)

== ENCOUNTER → 2023-06-11 08:50 | Outpatient (BNVA) | payer MEDICAID, SELFPAY | PROVIDERS: Visit Provider Advanced Practice Midwife | DX: Z30.42 Encounter for surveillance of injectable contraceptive (principal) | CPT/HCPCS: 96372; 99211; J1050 ==

== ENCOUNTER 2023-08-27 09:05 | Outpatient (AMB) | payer MEDICAID, SELFPAY ==
[2023-08-27 09:17] VITALS: BMI 24.4
--- NOTE | 2023-08-27 09:17 | AM.OFFVISNUR ---
Intake Vital Signs 08/27/23 09:17 Height 5 ft 6 in Weight 68.549 kg BMI 24.4 Intake Visit Reasons: Depo Allergies Seasonal Allergies Allergy (Intermediate, Verified 05/28/23 14:33) Itchy Eyes trazodone Allergy (Intermediate, Verified 05/28/23 14:33) FACIAL SWELLING, swelling Nursing Note Nikky is here for her Depo-Provera inj as scheduled. She is c/o ? 2 cysts, 1 on her buttock area and 1 on her inner thigh area. Pt has had prior and had them drained. She was referred to PCP for evaluation. Pt is scheduled for 01/23 for next AG. Pt aware to call for any problems or concerns. Office Procedures Depo Questionnaire If YES to any of the following questions, please consult a provider. Date of last injection: 06/11/23 Date of last menstrual period: 08/24/23 Date of last gynecology exam: 01/06/23 Menstrual pattern since last injection has been: Light Irregular bleeding?: No Breast lumps or other breast changes?: No Changes in weight or appetite?: No Depression or changes in mood?: No Abnormal hair growth or loss?: No Skin problems (rash, acne, discoloration)?: No Pain at the injection site?: No Headaches?: Yes (Pt does not feel they are depo related.) Nervousness?: No Abdominal pain or cramping?: No Dizziness or nausea?: No Fatigue or weakness?: No Decrease in sexual drive?: No Chest pain or shortness of breath?: No Swelling in arms or legs?: No Form completed by?: David foss LPN Office Meds Depo-Provera 150 mg/mL intramuscular syringe Performing Provider: Celia De La Garza CNM [place] [facility] [place] [facility] Administered by: Lanette Foss LPN on 08/27/23 09:17 Dose Route Admin Location Dispensed Lot Number Expiration Date [facility] Se[employer] 150 mg IM LGM 1 mL [id number] 01/30/25 44213-055-94 [facility] Coding Level of Care Code Established Pt Est Pt Level 1 (30050) Patient Type Established History Problem Focused Exam Problem Focused Medical Decision Making Straight Forward Time Spent (min) 15 Assessment & Plan Assessment & Plan Orders: Orders AMB Medroxyprogesterone Injection Patient Supplied Today Z30.42 - Encounter for surveillance of injectable contraceptive
== END 2023-08-27 09:15 | disposition home or self-care (01) ==
LOC: HO.HWS 09:05
PROVIDERS: Visit Provider Advanced Practice Midwife
DX: Z30.42 Encounter for surveillance of injectable contraceptive (principal)

== ENCOUNTER → 2023-08-27 09:05 | Outpatient (BNVA) | payer MEDICAID, SELFPAY | PROVIDERS: Visit Provider Advanced Practice Midwife | DX: Z30.42 Encounter for surveillance of injectable contraceptive (principal) | CPT/HCPCS: 96372; 99211; J1050 ==

== ENCOUNTER 2023-10-27 00:53 | Emergency (ER) | payer MEDICAID, SELFPAY ==
[2023-10-27 01:00] VITALS: BP 99/69; PULSE 81; RESP 16; TEMP 36.7; O2SAT 100; BMI 24.2
--- NOTE | 2023-10-27 01:32 | ED.GENADULT ---
HPI - General Adult General Chief complaint: Extremity Problem Stated complaint: ring stuck Time Seen by Provider: 10/27/23 01:19 Source: patient and RN notes reviewed Mode of arrival: ambulatory Limitations: no limitations History of Present Illness HPI narrative: patient put a new ring on yesterday. She is unsure of the type of metal. The ring is now stuck on her right 3rd finger. She did not injure the finger in any way. She states that she tried to remove it with several tricks at home and was unsuccessful. She reports pain to the right 3rd finger Related Data Home Medications Medication Instructions Recorded Confirmed azelastine 205.5 mcg (0.15 %) 1 spray intranasal BID 08/27/20 11/13/20 nasal spray bupropion HCl 150 mg 24 hr tablet, 150 mg PO QAM 08/27/20 11/13/20 extended release fluticasone propionate 50 1 spray intranasal DAILY 08/27/20 11/13/20 mcg/actuation nasal spray,suspension (Allergy Relief (fluticasone)) ibuprofen 800 mg tablet 800 mg PO Q8H 08/27/20 11/13/20 diphenhydramine HCl 25 mg capsule 25 mg PO TID PRN 09/24/20 11/13/20 (Benadryl) duloxetine 30 mg capsule,delayed 30 mg PO BEDTIME 02/24/23 release melatonin 3 mg tablet 3 mg PO BEDTIME PRN insomnia 02/24/23 Previous Rx's Medication Instructions Recorded hydrocortisone 2.5 % topical cream 1 appl SD BID-QID PRN hemorrhoids 04/29/22 with perineal applicator #30 grams (Proctosol HC) medroxyprogesterone 150 mg/mL 150 mg IM Q12W 84 days #1 mL 01/06/23 intramuscular suspension docusate sodium 100 mg capsule 100 mg PO BEDTIME #90 caps 02/24/23 omeprazole 20 mg capsule,delayed 20 mg PO BID #180 caps 02/24/23 release oxymetazoline 0.05 % nasal spray 2 spray intranasal Q12H PRN nasal 05/04/23 (Afrin (oxymetazoline)) congestion 3 days #22 mL Allergies Allergy/AdvReac Type Severity Reaction Status Date / Time Seasonal Allergies Allergy Intermediate Itchy Eyes Verified 05/28/23 14:33 trazodone Allergy Intermediate FACIAL Verified 05/28/23 14:33 SWELLING, swelling Review of Systems Musculoskeletal: Musculoskeletal: Reports arthralgias, Reports joint swelling and Reports limited range of motion [facility] Past Medical History Medical History Anxiety Depression GERD (gastroesophageal reflux disease) Migraine with aura MRSA (methicillin resistant Staphylococcus aureus) Poor weight gain in adult Surgical History Hx of laparoscopy Family History Family History Mother HTN (hypertension) Colon cancer Father Diabetes mellitus Social History Social History Alcohol intake: current Alcohol intake frequency: holidays/special occasions only Patient Tobacco Use Status: Former Tobacco user Quit Date: >1yr ago Advance Directives: No Advance Directives Information Provided: Yes Gender identity: Female Physical Exam ED Vital Signs: Vital Signs - 24 hr 10/27/23 01:00 Temperature 98.0 F Pulse Rate 81 Respiratory Rate 16 Blood Pressure 99/69 Pulse Oximetry 100 Oxygen Delivery Method Room Air BMI result Body Mass Index 24.2 Extrem Other: patient has edema to the right 3rd PIP joint. There is a ring stuck proximally. No obvious open wounds or bleeding Medical Decision Making Medical Decision Making MDM Narrative: with the patient's permission, I used the ring cutter to remove the ring from the right 3rd finger without any complications. skin integrity believes the ring was intact postprocedure. Differential Diagnosis Differential Diagnoses: The differential diagnosis associated with the presentation includes Finger edema Finger swelling Foreign body Finger fracture Discharge Plan Discharge Clinical Impression: Swelling of finger, right Patient Disposition: Home, Self-Care Instructions: Swollen Joint (ED) Additional Instructions: apply ice the area every 4 hours for 10-15 minute follow-up with your primary doctor Prescriptions: No Action hydrocortisone [Proctosol HC] 2.5 % cream with perineal applicator 1 appl SD BID-QID PRN (Reason: hemorrhoids) Qty: 30 2RF oxymetazoline [Afrin (oxymetazoline)] 0.05 % spray,non-aerosol 2 spray intranasal Q12H PRN (Reason: nasal congestion) 3 Days Qty: 22 0RF azelastine 0.15 % (205.5 mcg) spray,non-aerosol 1 spray intranasal BID Rx Instructions: administer into each nostril fluticasone propionate [Allergy Relief (fluticasone)] 50 mcg/actuation spray,suspension 1 spray intranasal DAILY Rx Instructions: administer into each nostril bupropion HCl 150 mg tablet extended release 24 hr 150 mg PO QAM ibuprofen 800 mg tablet 800 mg PO Q8H diphenhydramine HCl [Benadryl] 25 mg capsule 25 mg PO TID PRN melatonin 3 mg tablet 3 mg PO BEDTIME PRN (Reason: insomnia) duloxetine 30 mg capsule,delayed release(DR/EC) 30 mg PO BEDTIME docusate sodium 100 mg capsule 100 mg PO BEDTIME Qty: 90 4RF omeprazole 20 mg capsule,delayed release(DR/EC) 20 mg PO BID Qty: 180 2RF medroxyprogesterone 150 mg/mL suspension 150 mg IM Q12W 84 Days Qty: 1 4RF
== END 2023-10-27 01:42 | disposition home or self-care (01) ==
PROVIDERS: Emergency Provider Internal Medicine
DX: L08.89 Other specified local infections of the skin and subcutaneous tissue (principal); M79.644 Pain in right finger(s); Z79.899 Other long term (current) drug therapy
CPT/HCPCS: 99282; 99284

== ENCOUNTER 2023-11-05 09:26 | Outpatient (AMB) | payer MEDICAID, SELFPAY ==
[2023-11-05 09:44] VITALS: BP 114/66; BMI 24.2
--- NOTE | 2023-11-05 09:44 | MHC.OFFVIS ---
Intake Vital Signs 11/05/23 09:44 Height 5 ft 6 in Weight 149 lb 14.629 oz BMI 24.2 BP 114/66 Intake Visit Reasons: tubal consult Utilization Reviewer Required: No Information Interpreted: non-clinical & clinical Accompanied by: Self / Same As Patient Allergies Seasonal Allergies Allergy (Intermediate, Verified 11/05/23 09:49) Itchy Eyes trazodone Allergy (Intermediate, Verified 11/05/23 09:49) FACIAL SWELLING, swelling Is last menstrual period known: No (depo) HPI HPI Comments History of Present Illness Details Presenting to discuss different options of control. The patient has been on Depo-Provera for last few years [facility] Medical History GERD (gastroesophageal reflux disease) Poor weight gain in adult Anxiety MRSA (methicillin resistant Staphylococcus aureus) Migraine with aura Depression Surgical History Hx of laparoscopy Family History Mother HTN (hypertension) Colon cancer Father Diabetes mellitus Social History Alcohol intake: current Alcohol intake frequency: holidays/special occasions only Patient Tobacco Use Status: Former Tobacco user Quit Date: >1yr ago Gender identity: Female Female Reproductive History Menstrual Age of Menarche: 13 control method: progesterone injection Review of Systems Const All systems reviewed & are unremarkable except as noted in HPI and below Reports as per HPI and Reports no additional complaints GI Reports no additional complaints Reports no additional complaints Physical Exam Vital Signs: Last Vital Signs BP 114/66 11/05/23 09:44 BMI result Body Mass Index 24.2 Assessment & Plan Assessment & Plan (1) Family planning: Code(s): Z30.09 - Encounter for other general counseling and advice on contraception Plan: Discussed with the patient the different options of control including control pills/Nuvaring (contraindicated in patients with migraine headaches with aura), DMPA, different types of IUD ?s ( cu vs progesterone) , sterilization and vasectomy. All the pros, cons, risks and benefits of each were discussed with the patient. The patient decided to think about in get back to us Coding Level of Care Code Est Pt Level 3 (89330) Diagnoses Family planning Z30.09
== END 2023-11-05 10:12 | disposition home or self-care (01) ==
LOC: HO.HWS 09:26
PROVIDERS: Visit Provider Obstetrics & Gynecology
DX: Z30.09 Encounter for other general counseling and advice on contraception (principal)
CPT/HCPCS: 99213

== ENCOUNTER → 2023-11-05 09:26 | Outpatient (BNVA) | payer MEDICAID, SELFPAY | PROVIDERS: Visit Provider Obstetrics & Gynecology | DX: Z30.09 Encounter for other general counseling and advice on contraception (principal) | CPT/HCPCS: 99212 ==

== ENCOUNTER 2023-11-19 09:03 | Outpatient (AMB) | payer MEDICAID, SELFPAY ==
[2023-11-19 09:20] VITALS: BMI 24.3
--- NOTE | 2023-11-19 09:20 | AM.OFFVISNUR ---
Intake Vital Signs 11/19/23 09:20 Height 5 ft 6 in Weight 68.209 kg BMI 24.3 Intake Visit Reasons: DEPO Allergies Seasonal Allergies Allergy (Intermediate, Verified 11/05/23 09:49) Itchy Eyes trazodone Allergy (Intermediate, Verified 11/05/23 09:49) FACIAL SWELLING, swelling Nursing Note Nikky is here today for her scheduled Depo-Provera inj. She is c/o continued weight loss, although she reports eating fine. She has hx of anxiety and depression, but not currently seeing a counselor. Pt has PCP appt in December and AG in December. Pt advised to discuss her concerns with both providers. pt verbs understanding. Office Procedures Depo Questionnaire If YES to any of the following questions, please consult a provider. Date of last injection: 11/19/23 Date of last gynecology exam: 01/06/23 Menstrual pattern since last injection has been: Not Applicable Irregular bleeding?: No Breast lumps or other breast changes?: No Changes in weight or appetite?: Yes (pt c/o weight loss x 6 months. She will discuss at her AG in December, and also seeing her pcp in December.) Depression or changes in mood?: Yes (Long hx of anxiety and depression.) Abnormal hair growth or loss?: No Skin problems (rash, acne, discoloration)?: No Pain at the injection site?: No Headaches?: No Nervousness?: No Abdominal pain or cramping?: No Dizziness or nausea?: No Fatigue or weakness?: No Decrease in sexual drive?: No Chest pain or shortness of breath?: No Swelling in arms or legs?: No Form completed by?: David foss LPN Office Meds Depo-Provera 150 mg/mL intramuscular syringe Performing Provider: Celia De La Garza CNM Performing Location: [facility] [place] [facility] Administered by: Lanette Foss LPN on 11/19/23 09:21 Dose Route Admin Location Dispensed Lot Number Expiration Date [facility] [employer] 150 mg IM rt. gluteus 1 mL [id number] 08/01/25 57388-254-73 MYLAN Coding Level of Care Code Established Pt Est Pt Level 1 (55707) Patient Type Established History Problem Focused Exam Problem Focused Medical Decision Making Straight Forward Time Spent (min) 20 Assessment & Plan Assessment & Plan Orders: Orders AMB Medroxyprogesterone Injection Practice Supplied Today Z30.42 - Encounter for surveillance of injectable contraceptive
== END 2023-11-19 09:28 | disposition home or self-care (01) ==
LOC: HO.HWS 09:03
PROVIDERS: Visit Provider Advanced Practice Midwife
DX: Z30.42 Encounter for surveillance of injectable contraceptive (principal)

== ENCOUNTER → 2023-11-19 09:03 | Outpatient (BNVA) | payer MEDICAID, SELFPAY | PROVIDERS: Visit Provider Advanced Practice Midwife | DX: Z30.42 Encounter for surveillance of injectable contraceptive (principal) | CPT/HCPCS: 96372; 99211; J1050 ==

== ENCOUNTER 2024-01-01 10:07 | Outpatient (AMB) | payer MEDICAID, SELFPAY ==
--- NOTE | 2024-01-01 10:24 | A.OFFVIS_ITS ---
Intake Vital Signs 01/01/24 10:28 Height 5 ft 6 in Weight 150 lb 8 oz BMI 24.3 BP 113/76 Blood Pressure Location Lt brachial Position Sitting Pulse 78 Intake Visit Reasons: FU last seen 01/2023 Intake Note: Patient follow up for Constipation. Patient cc: abdominal imitation, bloating, acid reflex with burning sensation, some swallowing problems and constipation Senior Pensions Administrator Required: No Accompanied by: Family/Other Allergies Seasonal Allergies Allergy (Intermediate, Verified 01/01/24 10:23) Itchy Eyes trazodone Allergy (Intermediate, Verified 01/01/24 10:23) FACIAL SWELLING, swelling HPI FU last seen 01/2023 HPI Details Constipation Continue Colace, will increase senna to 2 tablets per patient's request. Patient will call the office if she will continue to be constipated than we can start her on Linzess. Patient was encouraged to increase fluid intake and activity to promote better bowel motility GERD (gastroesophageal reflux disease) Continue taking omeprazole twice a day as ordered. Avoid dietary triggers and late night snacking. Staying upright for minimal 3 hours after meals discussed with patient. I will see her in 2 months we will discuss malaise going for upper endoscopy if necessary. Patient is agreeable to this plan and verbalizes understanding of instructions. She was given the opportunity to ask questions and all questions answered. ? Thank you for allowing me to participate in her care Plan Medications New omeprazole 20 mg PO BID 180 caps 2RF Changed From sennosides (Natural Senna Laxative) 8.6 mg PO BEDTIME 30 days 30 tabs 3RF constipation K59.00 - Constipation, unspecified To sennosides (Natural Senna Laxative) 17.2 mg (2 x 8.6 mg) PO BEDTIME 30 days 60 tabs 3RF constipation K59.00 - Constipation, unspecified Refilled docusate sodium 100 mg PO BEDTIME 90 caps 4RF K59.00 - Constipation, unspecified TODAY'S VISIT Patient is here today for follow-up. Last seen in [place] of 2023. Patient reports that she was taking senna and Colace and she would have diarrhea. Patient stopped taking both of the medications. Patient reports feeling constipated right now, however occasionally patient will have loose stools postprandially. Patient reports epigastric discomfort with dyspepsia without dysphagia or odynophagia. However patient does report that sometimes were her acid reflux is very strong she feels it come in up and that is when she has trouble swallowing. Patient reports that she has not following any particular diet. Patient reports that she is taking omeprazole every morning before breakfast but continues to have postprandial epigastric pain and bloating. Patient denies any melena, hematochezia, unintentional weight loss or ribbon like stools. Patient denies any nausea or vomiting [facility] Medical History GERD (gastroesophageal reflux disease) Poor weight gain in adult Anxiety MRSA (methicillin resistant Staphylococcus aureus) Migraine with aura Depression Surgical History Hx of laparoscopy Family History Mother HTN (hypertension) Colon cancer Father Diabetes mellitus Social History Alcohol intake: current Alcohol intake frequency: holidays/special occasions only Patient Tobacco Use Status: Former Tobacco user Quit Date: >1yr ago Gender identity: Female Female Reproductive History Menstrual Age of Menarche: 13 Review of Systems Const Denies weight gain and Denies weight loss ENT Reports no additional complaints, Denies dysphagia and Denies odynophagia Card Reports no additional complaints Resp Reports no additional complaints GI Reports abdominal pain, Denies belching, Denies melena, Reports bloating, Denies change in bowel habits, Reports constipation, Denies dysphagia, Denies excessive flatus, Denies dyspepsia, Reports heartburn, Denies diarrhea, Denies loose stools, Denies nausea, Denies odynophagia and Denies vomiting Reports no additional complaints Musc Reports no additional complaints Neuro Reports no additional complaints Psych Reports no additional complaints Endo Reports no additional complaints Physical Exam Vital Signs: Last Vital Signs Pulse 78 01/01/24 10:28 BP 113/76 01/01/24 10:28 BMI result Body Mass Index 24.3 Const General: healthy appearing, no acute distress and well developed Nutritional Appearance: well nourished Orientation/consciousness: patient oriented x3 Resp Effort & Inspection: normal respiratory effort, able to speak in complete sentences, no tracheal deviation and symmetric chest movement Auscultation: clear to auscultation bilaterally Cardio Rate: regular rate GI Inspection: Yes normal to inspection and No distended Palpation (GI): Soft to palpation, not firm, nontender and No hepatosplenomegaly present Auscultation: normal bowel sounds General: Yes no CVA tenderness Back/Spine/Pelvis Back: no CVA tenderness Skin General skin exam: elasticity normal, turgor normal and dry skin Neuro General: patient oriented x3 Psych Appearance: grossly normal Mental Status: mental status grossly normal Assessment & Plan Assessment & Plan (1) Constipation: Code(s): K59.00 - Constipation, unspecified Qualifiers: Constipation type: slow transit constipation Qualified Code(s): K59.01 - Slow transit constipation (2) GERD (gastroesophageal reflux disease): Code(s): K21.9 - Gastro-esophageal reflux disease without esophagitis Qualifiers: Esophagitis presence: esophagitis presence not specified Qualified Code(s): K21.9 - Gastro-esophageal reflux disease without esophagitis (3) Postprandial epigastric pain: Code(s): R10.13 - Epigastric pain (4) Postprandial abdominal bloating: Code(s): R14.0 - Abdominal distension (gaseous) Plan Patient will try to take MiraLax in the morning and will take Colace in the evening. Patient was encouraged to increase fluid intake and activity to promote better bowel motility. I will start her on pantoprazole in the morning and she can take famotidine at bedtime. Discussed with patient avoiding dietary triggers and late night snacking. Staying upright for minimal 3 hours after meals discussed with patient. Low FODMAP diet discussed with patient. List of food recommended as well as list of food to avoid given to patient. I will see patient in 5 weeks. If she continues to have epigastric pain we will send her f or upper endoscopy. Patient is agreeable to this plan and verbalizes understanding of instructions. She was given the opportunity to ask questions and all questions answered. Thank you for allowing me to participate in her care Medications: New famotidine (Pepcid) 20 mg PO BEDTIME 30 tabs 3RF K21.9 - Gastro-esophageal reflux disease without esophagitis pantoprazole take one tablet half an hour before breakfast 40 mg PO DAILY 30 tabs 2RF K21.9 - Gastro-esophageal reflux disease without esophagitis polyethylene glycol 3350 (Miralax) 17 grams PO DAILY 510 grams 2RF Refilled docusate sodium 100 mg PO BEDTIME 90 caps 4RF K59.00 - Constipation, unspecified Discontinued omeprazole Discontinued Reason: Doctor's Order 20 mg PO BID 180 caps 2RF Coding Level of Care Code Est Pt Level 4 (76193) Diagnoses Slow transit constipation K59.01 Constipation type: slow transit constipation Gastroesophageal reflux disease, unspecified whether esophagitis present K21.9 Esophagitis presence: esophagitis presence not specified Postprandial epigastric pain R10.13 Postprandial abdominal bloating R14.0 Time Spent (min) 35 Comment 25 minutes spent with patient and additional 10 minutes spent reviewing her records
[2024-01-01 10:28] VITALS: BP 113/76; PULSE 78; BMI 24.3
== END 2024-01-01 10:55 | disposition home or self-care (01) ==
PROVIDERS: Visit Provider Nurse Practitioner Family
DX: K59.01 Slow transit constipation (principal); K21.9 Gastro-esophageal reflux disease without esophagitis; R10.13 Epigastric pain; R14.0 Abdominal distension (gaseous)
CPT/HCPCS: 99214

== ENCOUNTER → 2024-01-01 10:07 | Outpatient (BNVA) | payer MEDICAID, SELFPAY | PROVIDERS: Visit Provider Nurse Practitioner Family | DX: K59.01 Slow transit constipation (principal); K21.9 Gastro-esophageal reflux disease without esophagitis; R10.13 Epigastric pain; R14.0 Abdominal distension (gaseous) | CPT/HCPCS: 99212 ==

== ENCOUNTER 2024-01-08 10:04 | Outpatient (REF) | payer MEDICAID, SELFPAY | END 2024-01-08 10:05 | disposition home or self-care (01) | LOC: HO.LNP 10:04 | PROVIDERS: PCP Nurse Practitioner Family; Visit Provider Advanced Practice Midwife | DX: Z01.419 Encounter for gynecological examination (general) (routine) without abnormal findings (principal) | CPT/HCPCS: 0353U; 86704; 86780; 86803; 87389; 87480; 87510; 87660; 99395 ==

== ENCOUNTER 2024-01-08 10:04 | Outpatient (AMB) | payer MEDICAID, SELFPAY ==
--- NOTE | 2024-01-08 10:09 | MHC.OFFVIS ---
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 Doing well with no concerns. She tries to eat healthy and stays active with exercise. Regular monthly menses. Uses Depo and condoms. Currently is sexually active. She denies vaginal itching and irritation. STI screening offered; she accepts. Denies family history of breast or ovarian cancer. FH colon cancer-mom. Last pap smear 2019, negative. History of migraines with aura. She denies any contraindications to control such as: history of DVT or pulmonary emboli, high blood pressure, liver disease, thrombolic disorders, Lupus, +GLENDY, breast cancer, or smoking. [facility] Medical History (Updated 01/08/24 @ 10:16 by Cecilia Quigley CMA) Fibromyalgia GERD (gastroesophageal reflux disease) Poor weight gain in adult Anxiety MRSA (methicillin resistant Staphylococcus aureus) Migraine with aura Depression Surgical History Hx of laparoscopy Family History Mother HTN (hypertension) Colon cancer Father Diabetes mellitus Social History (Updated 01/08/24 @ 10:18 by Cecilia Quigley CMA) Household Members: Children Housing: Apartment Alcohol intake: current Alcohol intake frequency: holidays/special occasions only Patient Tobacco Use Status: Former Tobacco user Quit Date: >1yr ago Years Smoked: 10 Current occupational status: employed 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 Sexual orientation: Straight/Heterosexual Gender identity: Female Female Reproductive History Menstrual Age of Menarche: 13 Total pregnancies: 4 Full term: 3 Number of Living Children: 3 Date of last pap smear: 08/28/20 Review of Systems Const All systems reviewed & are unremarkable except as noted in HPI and below Reports as per HPI Eyes Reports no additional complaints ENT Reports no additional complaints Card Reports no additional complaints Resp Reports no additional complaints GI Reports as per HPI and Reports no additional complaints Reports as per HPI Musc Reports no additional complaints Skin/Breast Reports as per HPI Neuro Reports no additional complaints Psych Reports no additional complaints Endo Reports no additional complaints José Miguel/Lymph Reports no additional complaints Aller/Immun Reports no additional complaints Physical Exam Vital Signs: Last Vital Signs BP 116/66 01/08/24 10:10 BMI result Body Mass Index 24.2 Const General: cooperative, healthy appearing, no acute distress, well developed and alert Orientation/consciousness: patient oriented x3 HEENT Head: Yes normal to inspection Eyes General: appearance normal, both eyes and all related structures Neck Neck: Yes normal visual inspection Thyroid: Thyroid normal Chest Chest palpation & inspection: normal inspection of the chest and other (no puckering, dimpling, peau de orange, retraction, discharge, masses) Breast/axilla inspection: normal inspection of the breasts Breast/axilla palpation: normal palpation of the breasts Resp Effort & Inspection: normal respiratory effort GI Inspection: Yes normal to inspection Palpation (GI): Soft to palpation Rectal Exam - Female: deferred General: Yes bladder normal to palpation External Female Exam: normal external appearance and normal appearance of the urethra Speculum Exam - Vagina: normal appearance of the vagina, normal palpation and normal vaginal discharge Speculum Exam - Cervix: normal appearance of the cervix and normal palpation Bimanual exam- vagina & uterus: normal bimanual exam, normal palpation, uterine size normal, bladder normal to palpation, normal palpation, non-tender and other (White clumpy discharge at cervical os) Bimanual Exam- Adnexa, other: no masses Skin General skin exam: no rashes or lesions noted Rashes: no rashes Neuro General: patient oriented x3 Cognition (Neuro): normal cognition Extrem General: Yes normal to inspection Psych Attitude: cooperative Thought process: Normal thought process present Assessment & Plan Assessment & Plan (1) Well woman exam with routine gynecological exam: Code(s): Z01.419 - Encounter for gynecological examination (general) (routine) without abnormal findings (2) Possible exposure to STD: Code(s): Z20.2 - Contact with and (suspected) exposure to infections with a predominantly sexual mode of transmission (3) Surveillance for Depo-Provera contraception: Code(s): Z30.42 - Encounter for surveillance of injectable contraceptive Plan Discussed: Current recommendations for pap smears per ASCCP guidelines. Breast awareness and periodic breast exams. Maintain a healthy lifestyle including a well balanced diet and routine exercise. Use condoms for STI and prevention. control hormone use warnings: go to ER if and loss of vision, blindness, severe headache, chest pain or difficulty breathing, severe abdominal pain, or any pain or swelling in an extremity. Continue with Depo-Provera use, Rx refill provided. Patient verbalizes understanding and agrees to the plan of care. She was given opportunity to ask questions and all questions were answered to the best of my ability. RTO in one year for annual human resources trainer examination. This note is constructed using voice recognition software. While every effort has been made to ensure accuracy, disk recordist errors may have been included. Orders: Orders HIV Ab/Ag Today Z20.2 - Contact with and (suspected) exposure to infections with a predominantly sexual mode of transmission Hepatitis C Antibody Reflex Today Z20.2 - Contact with and (suspected) exposure to infections with a predominantly sexual mode of transmission Hepatitis B Core Antibody Today Z20.2 - Contact with and (suspected) exposure to infections with a predominantly sexual mode of transmission Syphilis Screen Today Z20.2 - Contact with and (suspected) exposure to infections with a predominantly sexual mode of transmission CT NG by PCR Today Z01.419 - Encounter for gynecological examination (general) (routine) without abnormal findings Bacterial Vaginosis Panel Today Z01.419 - Encounter for gynecological examination (general) (routine) without abnormal findings Medications: Refilled medroxyprogesterone 150 mg IM Q12W 1 mL 4RF 84 days Coding Level of Care Code Est Pt Prev Care 18-39y(43265) Diagnoses Well woman exam with routine gynecological exam Z01.419 Possible exposure to STD Z20.2 Surveillance for Depo-Provera contraception Z30.42
[2024-01-08 10:10] VITALS: BP 116/66; BMI 24.2
== END 2024-01-08 10:42 | disposition home or self-care (01) ==
LOC: HO.HWS 10:05
PROVIDERS: PCP Nurse Practitioner Family; Visit Provider Advanced Practice Midwife
DX: Z01.419 Encounter for gynecological examination (general) (routine) without abnormal findings (principal); Z20.2 Contact with and (suspected) exposure to infections with a predominantly sexual mode of transmission; Z30.42 Encounter for surveillance of injectable contraceptive
CPT/HCPCS: 99395

== ENCOUNTER 2024-01-08 10:50 | Outpatient (REF) | payer MEDICAID, SELFPAY ==
[2024-01-08 15:01] LABS: CT PCR NOT DETECTED (Not Detect.); NG PCR NOT DETECTED (Not Detect.)
[2024-01-09 03:41] LABS: Syphilis Screen Nonreactive (Nonreactive)
[2024-01-09 04:37] LABS: HBc Num1 0.12 S/CO (0.00-0.79); HIV AB/AG Nonreactive (Nonreactive); HIV Num 1 0.06 S/CO (0.00-0.99); Hepatitis B Core Antibody Nonreactive (Nonreactive); ~HepC Num1 0.11 S/CO (0.00-0.79); ~Hepatitis C Antibody Nonreactive (Nonreactive)
[2024-01-09 12:05] LABS: BV Int Neg Control Negative (Negative); BV Int Pos Control Positive (Positive)
== END 2024-01-08 10:51 | disposition home or self-care (01) ==
LOC: HO.LAB 10:50
PROVIDERS: PCP Nurse Practitioner Family; Visit Provider Advanced Practice Midwife
DX: Z01.419 Encounter for gynecological examination (general) (routine) without abnormal findings (principal); Z11.4 Encounter for screening for human immunodeficiency virus [HIV]; Z20.2 Contact with and (suspected) exposure to infections with a predominantly sexual mode of transmission
CPT/HCPCS: 0353U; 86704; 86780; 86803; 87389; 87480; 87510; 87660

== ENCOUNTER 2024-01-15 11:09 | Outpatient (REF) | payer MEDICAID, SELFPAY ==
[2024-01-15 13:20] LABS: MANUAL DIFF FLAG NO
[2024-01-15 13:30] LABS: Basophils Percent Auto 0.3 % (0-2); Eosinophils Absolute Auto 0.1 X10*3/uL (0.0-0.4); Eosinophils Percent Auto 0.5 % (0-4); Hematocrit 40.9 % (37.0-47.0); Hemoglobin 13.7 g/dl (12.0-16.0); Imm Gran Abs Auto 0.01 X10*3/uL (0.00-0.03); Imm Gran Pct Auto 0.1 % (0.0-0.4); Lymphocytes Absolute Auto 3.2 X10*3/uL (1.2-4.9); Lymphocytes Percent Auto 34.5 % (20-40); Mean Corpuscular HGB Conc 33.5 g/dl (31.0-35.0); Mean Corpuscular Hemoglobin 28.2 pg (27.0-33.0); Mean Corpuscular Volume 84.3 fL (80.0-98.0); Mean Platelet Volume 10.3 fL (9.4-12.3); Monocytes Absolute Auto 0.7 X10*3/uL (0.1-1.2); Monocytes Percent Auto 7.6 % (2-11); Neutrophils Absolute Auto 5.3 x10*3/uL (2.0-8.3); Platelet Count 250 X10*3/uL (160-400); Red Blood Count 4.85 X10*6/uL (4.20-5.50); Red Cell Distribution Width 13.5 % (11.0-16.0); White Blood Count 9.2 X10*3/uL (4.8-10.8)
[2024-01-15 14:08] LABS: TSH reflex Free T4 0.55 uIU/mL (0.32-4.0)
[2024-01-17 20:48] LABS: TS Negative Control Passed; TS Panel A 0; TS Panel B 0; TS Positive Control Passed; TSpotTB Negative (Negative)
== END 2024-01-15 11:10 | disposition home or self-care (01) ==
LOC: HO.HHCL 11:09
PROVIDERS: Visit Provider Nurse Practitioner Family
DX: R53.83 Other fatigue (principal); R23.2 Flushing; R63.4 Abnormal weight loss
CPT/HCPCS: 36415; 84443; 85025; 86481

== ENCOUNTER 2024-02-09 09:01 | Outpatient (AMB) | payer MEDICAID, SELFPAY ==
[2024-02-09 09:26] VITALS: BMI 24.4
--- NOTE | 2024-02-09 09:26 | AM.OFFVISNUR ---
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 No c/o, no new medical diagnoses or new meds. Pt tolerated injection well. She will schedule her next injection in 12 weeks. Pt verbalizes understanding and agrees with plan. No further questions. Office Procedures Depo Questionnaire If YES to any of the following questions, please consult a provider. Date of last injection: 11/19/23 Date of last gynecology exam: 01/08/24 Menstrual pattern since last injection has been: Not Applicable Irregular bleeding?: No Breast lumps or other breast changes?: No Changes in weight or appetite?: No Depression or changes in mood?: No Abnormal hair growth or loss?: No Skin problems (rash, acne, discoloration)?: No Pain at the injection site?: No Headaches?: No Nervousness?: No Abdominal pain or cramping?: No Dizziness or nausea?: No Fatigue or weakness?: No Decrease in sexual drive?: No Chest pain or shortness of breath?: No Swelling in arms or legs?: No Form completed by?: Ashely Breaux RN Office Meds Depo-Provera 150 mg/mL intramuscular syringe Performing Provider: Celia De La Garza CNM Performing Location: [facility] [place] [facility] Administered by: Ashely Breaux on 02/09/24 09:28 Dose Route Admin Location Dispensed Lot Number Expiration Date [facility] Opening Machine Cleaner 150 mg IM LGM 1 mL [id number] 09/01/25 69268-382-39 MYLAN Coding Level of Care Code Established Pt Est Pt Level 1 (22706) Patient Type Established History Problem Focused Medical Decision Making Straight Forward Time Spent (min) 15 Assessment & Plan Assessment & Plan Orders: Orders AMB Medroxyprogesterone Injection Patient Supplied Today Z30.42 - Encounter for surveillance of injectable contraceptive Medications: New Depo-Provera (medroxyprogesterone) 150 mg IM ONCE 1 mL 0RF NS Z30.42 - Encounter for surveillance of injectable contraceptive
== END 2024-02-09 09:32 | disposition home or self-care (01) ==
LOC: HO.HWS 09:01
PROVIDERS: PCP Nurse Practitioner Family; Visit Provider Advanced Practice Midwife
DX: Z30.42 Encounter for surveillance of injectable contraceptive (principal)

== ENCOUNTER → 2024-02-09 09:01 | Outpatient (BNVA) | payer MEDICAID, SELFPAY | PROVIDERS: PCP Nurse Practitioner Family; Visit Provider Advanced Practice Midwife | DX: Z30.42 Encounter for surveillance of injectable contraceptive (principal) | CPT/HCPCS: 96372; 99211; J1050 ==

== ENCOUNTER 2024-04-12 09:18 | Outpatient (REF) | payer MEDICAID, SELFPAY ==
--- NOTE | 2024-04-12 09:23 | EMG_ITS ---
Bilateral median and ulnar motor and sensory studies were performed. Bilateral radial and median and lateral antecubital brachial sensory studies were performed, and paraspinal muscles were tested with a needle. IMPRESSION: This is an unremarkable study with no significant abnormalities. MD SHAYE Hood/KIRSTEN / [id number]
== END 2024-04-12 09:19 | disposition home or self-care (01) ==
LOC: HO.NEURO 09:18
PROVIDERS: PCP Nurse Practitioner Family; Visit Provider Nurse Practitioner Family
DX: R20.0 Anesthesia of skin (principal); R20.2 Paresthesia of skin
CPT/HCPCS: 95886; 95913

== ENCOUNTER 2024-05-02 08:59 | Outpatient (AMB) | payer MEDICAID, SELFPAY ==
[2024-05-02 09:11] VITALS: BMI 24.1
--- NOTE | 2024-05-02 09:11 | AM.OFFVISNUR ---
Vital Signs 05/02/24 09:11 Height 5 ft 6 in Weight 67.642 kg BMI 24.1 Intake Visit Reasons: DEPO Allergies Seasonal Allergies Allergy (Intermediate, Verified 01/08/24 10:13) Itchy Eyes trazodone Allergy (Intermediate, Verified 01/08/24 10:13) FACIAL SWELLING, swelling Nursing Note Nikky is here today for her scheduled DEPO-Provera inj. She has been c/o hot flashes and weight loss and has spoken with her PCP regarding this. Weight chart has been consistent since Nov 2023. Pt reports occ chest discomfort, has hx of anxiety. Pt was advised if this continues to call her PCP, or go to ED. Office Procedures Depo Questionnaire If YES to any of the following questions, please consult a provider. Date of last injection: 03/10/24 Date of last gynecology exam: 01/08/24 Menstrual pattern since last injection has been: Not Applicable Irregular bleeding?: No Breast lumps or other breast changes?: No Changes in weight or appetite?: Yes Depression or changes in mood?: No Abnormal hair growth or loss?: No Skin problems (rash, acne, discoloration)?: No Pain at the injection site?: No Headaches?: No Nervousness?: No Abdominal pain or cramping?: No Dizziness or nausea?: No Fatigue or weakness?: No Decrease in sexual drive?: No Chest pain or shortness of breath?: Yes (occ. pt has hx of anxiety.) Swelling in arms or legs?: No Any other problems or concerns?: having hot flashes Form completed by?: David Sarmiento LPN Office Meds Depo-Provera 150 mg/mL intramuscular syringe Performing Provider: Celia De La Garza CNM Performing Location: [facility] [place] [facility] Administered by: Lanette Sarmiento LPN on 05/02/24 09:12 Dose Route Admin Location Dispensed Lot Number Expiration Date [facility] Information Operator 150 mg IM Left gluteus 1 mL [id number] 11/01/25 19964-389-68 MYLAN Assessment & Plan Assessment & Plan Orders: Orders AMB Medroxyprogesterone Injection Patient Supplied Today Z30.42 - Encounter for surveillance of injectable contraceptive Medications: New Depo-Provera (medroxyprogesterone) 150 mg IM ONCE 1 mL 0RF NS Z30.42 - Encounter for surveillance of injectable contraceptive
== END 2024-05-02 09:22 | disposition home or self-care (01) ==
PROVIDERS: PCP Nurse Practitioner Family; Visit Provider Advanced Practice Midwife
DX: Z30.42 Encounter for surveillance of injectable contraceptive (principal)

== ENCOUNTER → 2024-05-02 08:59 | Outpatient (BNVA) | payer MEDICAID, SELFPAY | PROVIDERS: PCP Nurse Practitioner Family; Visit Provider Advanced Practice Midwife | DX: Z30.42 Encounter for surveillance of injectable contraceptive (principal) | CPT/HCPCS: 96372; 99211; J1050 ==

== ENCOUNTER 2024-07-18 09:48 | Outpatient (AMB) | payer MEDICAID, SELFPAY ==
--- NOTE | 2024-07-18 10:08 | AM.OFFVISNUR ---
Vital Signs 07/18/24 10:09 Height 5 ft 6 in Weight 154 lb 6 oz BMI 24.9 Intake Visit Reasons: Depo Geodetic Technician Required: No Allergies Seasonal Allergies Allergy (Intermediate, Verified 01/08/24 10:13) Itchy Eyes trazodone Allergy (Intermediate, Verified 01/08/24 10:13) FACIAL SWELLING, swelling Is last menstrual period known: No Post menopausal: No Patient : No Nursing Note Nikky is here for scheduled Depo provera injection. No c/o, no new medical problems and no new medications. Pt tolerated injection well. She was advised to schedule her next injection in 12 weeks. Pt verbalizes understanding and agrees with plan. No further questions. Office Procedures Depo Questionnaire If YES to any of the following questions, please consult a provider. Date of last injection: 05/02/24 Date of last gynecology exam: 01/08/24 Menstrual pattern since last injection has been: Not Applicable Irregular bleeding?: No Breast lumps or other breast changes?: No Changes in weight or appetite?: No Depression or changes in mood?: No Abnormal hair growth or loss?: No Skin problems (rash, acne, discoloration)?: No Pain at the injection site?: No Headaches?: No Nervousness?: No Abdominal pain or cramping?: No Dizziness or nausea?: No Fatigue or weakness?: No Decrease in sexual drive?: No Chest pain or shortness of breath?: No Swelling in arms or legs?: No Form completed by?: Ashely Breaux Office Meds Depo-Provera 150 mg/mL intramuscular syringe Performing Provider: Celia De La Garza CNM Performing Location: [facility] [place] [facility] Administered by: Ashely Breaux on 07/18/24 10:12 Dose Route Admin Location Dispensed Lot Number Expiration Date [facility] [place]NOTE 2] [employer] Work[employer] Hel[employer] 150 mg IM RGM 1 mL [id number] 11/01/25 06352-276-17 MYLAN Assessment & Plan Assessment & Plan (1) Depot contraception: Code(s): Z30.42 - Encounter for surveillance of injectable contraceptive Category: Medical Plan Pt will schedule her next Depo injection in 12 weeks. Orders: Orders AMB Medroxyprogesterone Injection Patient Supplied Today Z30.42 - Encounter for surveillance of injectable contraceptive Medications: New Depo-Provera (medroxyprogesterone) 150 mg IM ONCE 1 mL 0RF NS Z30.42 - Encounter for surveillance of injectable contraceptive
[2024-07-18 10:09] VITALS: BMI 24.9
== END 2024-07-18 10:44 | disposition home or self-care (01) ==
LOC: HO.HWS 09:48
PROVIDERS: PCP Nurse Practitioner Family; Visit Provider Advanced Practice Midwife
DX: Z30.42 Encounter for surveillance of injectable contraceptive (principal)

== ENCOUNTER → 2024-07-18 09:48 | Outpatient (BNVA) | payer MEDICAID, SELFPAY | PROVIDERS: PCP Nurse Practitioner Family; Visit Provider Advanced Practice Midwife | DX: Z30.42 Encounter for surveillance of injectable contraceptive (principal) | CPT/HCPCS: 96372; 99211; J1050 ==

== ENCOUNTER 2024-10-12 09:36 | Outpatient (AMB) | payer MEDICAID, SELFPAY ==
--- NOTE | 2024-10-12 09:38 | MHC.OFFVIS ---
Vital Signs 10/12/24 09:42 BP 112/70 Intake Visit Reasons: Hot flashes Intake Note: pt c/o hot flashes and night sweats for 1 year with Depo Precision Agriculture Technician: Precision Agriculture Technician Present Allergies Seasonal Allergies Allergy (Intermediate, Verified 10/12/24 09:39) Itchy Eyes trazodone Allergy (Intermediate, Verified 10/12/24 09:39) FACIAL SWELLING, swelling Is last menstrual period known: Yes HPI Comments Details: Here today with concerns of hot flashes and night sweats. Last Depo-Provera was 07/22/2024, tubal ligation complete 08/21/2024. Cycles have not been regular due to Depo use. She admits to having 3-4 episodes of flashes during the daytime lasting 2-3 minutes an overnight 2-3 which cause her to wake. She denies any new medical changes or medications. [facility] Medical History (Updated 01/08/24 @ 10:16 by Cecilia Quigley CMA) Fibromyalgia GERD (gastroesophageal reflux disease) Poor weight gain in adult Anxiety MRSA (methicillin resistant Staphylococcus aureus) Migraine with aura Depression Surgical History (Updated 10/12/24 @ 09:39 by Sophy Leonard Mart) Hx of tubal ligation Hx of laparoscopy Family History Mother HTN (hypertension) Colon cancer Father Diabetes mellitus Social History (Updated 01/08/24 @ 10:18 by Cecilia Quigley CMA) Household Members: Children Housing: Apartment Alcohol intake: current Alcohol intake frequency: holidays/special occasions only Patient Tobacco Use Status: Former Tobacco user Years Smoked: 10 Current occupational status: employed 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 Sexual orientation: Straight/Heterosexual Gender identity: Female Female Reproductive History Menstrual Age of Menarche: 13 control method: permanent sterilization Permanent Sterilization: BTL Review of Systems Const All systems reviewed & are unremarkable except as noted in HPI and below Endo Reports no additional complaints Physical Exam Vital Signs: Last Vital Signs BP 112/70 10/12/24 09:42 Const General: cooperative, healthy appearing and no acute distress Psych Appearance: well kempt Attitude: cooperative Thought process: Normal thought process present Assessment & Plan Assessment & Plan (1) Hot flashes: Code(s): R23.2 - [place] Plan Discussed: Perimenopausal changes, plan lab work assessment and follow up in person to discuss plan of care. Advised to hydrate well, where layered clothing, and to call if there is any menstrual cycle changes that include heavy or prolonged bleeding. The patient expressed understanding and agreement with the plan of care. All of her questions and concerns were addressed to the best of my ability. This note is constructed using voice recognition software. While every effort has been made to ensure accuracy, sericulture teacher errors may have been included. Orders: Orders Follicle Stimulating Hormone Today R23.2 - [place] Lutenizing Hormone Today R23.2 - [place] Thyroid Stimulating Hormone Today N92.1 - Excessive and frequent menstruation with irregular cycle, R23.2 - [place] Estrad Free (Tot Ultra + Free) Today R23.2 - [place] Prolactin Today R23.2 - [place] Coding Level of Care Code Est Pt Level 3 (92963) Diagnoses Hot flashes R23.2
[2024-10-12 09:42] VITALS: BP 112/70
== END 2024-10-12 13:13 | disposition home or self-care (01) ==
PROVIDERS: PCP Nurse Practitioner Family; Visit Provider Advanced Practice Midwife
DX: R23.2 Flushing (principal)
CPT/HCPCS: 99213

== ENCOUNTER → 2024-10-12 09:36 | Outpatient (BNVA) | payer MEDICAID, SELFPAY | PROVIDERS: PCP Nurse Practitioner Family; Visit Provider Advanced Practice Midwife | DX: R23.2 Flushing (principal); Z98.51 Tubal ligation status | CPT/HCPCS: 99212 ==

== ENCOUNTER 2024-10-13 07:48 | Outpatient (REF) | payer MEDICAID, SELFPAY ==
[2024-10-13 09:12] LABS: Thyroid Stimulating Hormone 0.77 uIU/mL (0.32-4.0)
[2024-10-14 11:57] LABS: Follicle Stimulating Hormone 5.7 mIU/mL; Lutenizing Hormone 4.4 mIU/mL; Prolactin 11.9 ng/mL
[2024-10-23 05:57] LABS: Estradiol Free 1.21 pg/mL; Estradiol, Ultrasensitive 61 pg/mL
== END 2024-10-13 07:49 | disposition home or self-care (01) ==
LOC: HO.LAB 07:48
PROVIDERS: PCP Internal Medicine; Visit Provider Advanced Practice Midwife
DX: R23.2 Flushing (principal); N92.1 Excessive and frequent menstruation with irregular cycle
CPT/HCPCS: 36415; 82670; 82681; 83001; 83002; 84146; 84443

== ENCOUNTER 2024-11-15 08:49 | Outpatient (REF) | payer MEDICAID, SELFPAY ==
[2024-11-15 11:40] LABS: Amphetamine Screen Urine Not Detected (Not Detect); Barbiturates, Urine Not Detected (Not Detect); Benzodiazepines Screen Urine Not Detected (Not Detect); Buprenorphine Scr Not Detected (Not Detect); Cannabinoid Screen Urine POSITIVE (Not Detect); Cocaine Screen Urine Not Detected (Not Detect); Fentanyl, urine Not Detected (Not Detect); Methadone Screen, Urine Not Detected (Not Detect); Opiate Screen Urine Not Detected (Not Detect); Oxycodone Screen Urine Not Detected (Not Detect); Phencyclidine Screen Urine Not Detected (Not Detect)
== END 2024-11-15 08:50 | disposition home or self-care (01) ==
LOC: HO.HHCL 08:49
PROVIDERS: Visit Provider Registered Nurse
DX: F41.9 Anxiety disorder, unspecified (principal); F32.A Depression, unspecified
CPT/HCPCS: 80307

== ENCOUNTER 2024-11-19 13:25 | Emergency (ER) | payer MEDICAID, SELFPAY ==
--- NOTE | ~2024-11-19 | XR_ITS ---
CLINICAL HISTORY: shortness of breath 2 view chest x-ray Comparison: CR/SR - XR CHEST 2V - 05/03/23 22:43 EDT Findings: Mediastinal contours, cardiac silhouette, and pulmonary vasculature are within normal limits. Lungs are clear. No pleural effusion or pneumothorax. IMPRESSION: 1. No acute findings. This document has been electronically signed by: Adalberto Prieto MD on 11/19/2024 16:13:47
[2024-11-19 13:41] VITALS: BP 114/72; PULSE 74; RESP 18; TEMP 36.6; O2SAT 98; BMI 25.3
[2024-11-19 14:44] LABS: Influenza A PCR NEGATIVE (Negative); Influenza B PCR NEGATIVE (Negative); Resp Syncy Virus RNA Qual PCR NEGATIVE (Negative); SARS COV2 PCR INHOUSE NEGATIVE (Negative)
--- NOTE | 2024-11-19 15:09 | ED.HA ---
HPI - Headache General Chief Complaint: Headache Stated Complaint: headache congestion Time Seen by Provider: 11/19/24 15:09 Source: patient Mode of arrival: ambulatory Limitations: no limitations History of Present Illness ED Provider: valerie gallegos NP HPI Narrative: Patient is a 34-year-old female who presents emergency department for evaluation. She admits to having a nonproductive cough, nasal congestion over the past 2 weeks. She started with a frontal migraine this morning. She reports in the past she typically takes naproxen for her migraines but she did not take anything for this today. Denies any red flag symptoms including fevers, chills, neck stiffness, malaise, aphasia, weakness, poor coordination, descriptors such as ?the worst headache ever ?or ?thunderclap?, or painful temporal region. Denies dizziness, lightheadedness, vision changes, chest pain, shortness of breath, numbness or tingling of the extremities. Related Data Home Medications ?Medication ?Instructions ?Recorded ?Confirmed azelastine 205.5 mcg (0.15 %) 1 spray intranasal BID 08/27/20 11/13/20 nasal spray bupropion HCl 150 mg 24 hr tablet, 150 mg PO QAM 08/27/20 11/13/20 extended release fluticasone propionate 50 1 spray intranasal DAILY 08/27/20 11/13/20 mcg/actuation nasal spray,suspension (Allergy Relief (fluticasone)) diphenhydramine HCl 25 mg capsule 25 mg PO TID PRN 09/24/20 11/13/20 (Benadryl) duloxetine 30 mg capsule,delayed 30 mg PO BEDTIME 02/24/23 release melatonin 3 mg tablet 3 mg PO BEDTIME PRN insomnia 02/24/23 Previous Rx's ?Medication ?Instructions ?Recorded docusate sodium 100 mg capsule 100 mg PO BEDTIME #90 caps 01/01/24 pantoprazole 40 mg tablet,delayed 40 mg PO QAM #30 tabs 10/24/24 release polyethylene glycol 3350 17 17 g PO DAILY #510 grams 10/24/24 gram/dose oral powder (Miralax) amoxicillin 875 mg-potassium 1 tab PO BID #14 tabs 11/19/24 clavulanate 125 mg tablet Allergies Allergy/AdvReac Type Severity Reaction Status Date / Time Seasonal Allergies Allergy Intermediate Itchy Eyes Verified 11/19/24 13:43 trazodone Allergy Intermediate FACIAL Verified 11/19/24 13:43 SWELLING, swelling Review of Systems Review of Systems: Yes all other systems are reviewed and are negative [facility] Past Medical History Attestation statement: The following information was validated with the patient. Source: old records reviewed Medical History Fibromyalgia GERD (gastroesophageal reflux disease) Poor weight gain in adult Anxiety MRSA (methicillin resistant Staphylococcus aureus) Migraine with aura Depression Surgical History Hx of tubal ligation Hx of laparoscopy Family History Family History Mother HTN (hypertension) Colon cancer Father Diabetes mellitus Social History Social History (Updated 01/08/24 @ 10:18 by Cecilia Quigley CMA) Household Members: Children Housing: Apartment Alcohol intake: current Alcohol intake frequency: holidays/special occasions only Patient Tobacco Use Status: Former Tobacco user Years Smoked: 10 Current occupational status: employed 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 No acute distress.?Normal affect. Head: Normocephalic, atraumatic Eyes: Pupils equal, round and reactive to light. EOMI. No nystagmus. No ptosis. No tenderness to palpation over the temporal region. ENT: External auditory canal normal tympanic membrane pearly weir and intact bilaterally. Oropharynx normal. Neck: Normal inspection.? Neck supple. No nuchal rigidity. CVS: Heart sounds normal. Normal heart rate and rhythm.? Pulses normal.?? Respiratory: No respiratory distress.? Lung sounds clear to auscultation bilaterally?? Abdomen: Soft and non-tender. Normoactive bowel sounds. ?? Skin: Skin warm and dry.? Normal skin color.? ?? Extremities: No lower extremity edema.? Neuro: Moves all extremities spontaneously. Sensation intact bilaterally. CN II-XII intact. No focal neuro deficits. Ambulatory with steady gait. Course Reevaluation(s) Reevaluation #1: Patient with a history of recurrent and or similar headache, there is no substantial change to typical headache pattern, there are no red flag symptoms, no focal neurological deficits, no high risk comorbidities, at this time feel that patient is stable for discharge home Medications Administered Discontinued Medications Generic Name Dose Route Start Last Admin Trade Name aGuri PRN Reason Stop Dose Admin Diphenhydramine HCl 25 mg 11/19/24 15:27 11/19/24 15:51 Diphenhydramine Hcl 50 Mg/Ml Vial IVPUSH 11/19/24 15:28 25 mg ONCE ONE Administration Sodium Chloride 1,000 mls @ 999 mls/hr 11/19/24 15:30 11/19/24 17:09 Ns IV 11/19/24 16:30 Infused .Q1H1M EDUARD Infusion Ketorolac Tromethamine 15 mg 11/19/24 15:27 11/19/24 15:51 Ketorolac Tromethamine 15 Mg/Ml Vial IVPUSH 11/19/24 15:28 15 mg ONCE ONE Administration Metoclopramide HCl 10 mg 11/19/24 15:27 11/19/24 15:51 Metoclopramide Hcl 10 Mg/2 Ml Vial IVPUSH 11/19/24 15:28 10 mg ONCE ONE Administration Medical Decision Making Medical Decision Making MDM Narrative: Patient is a 34-year-old female past medical history of fibromyalgia, GERD, anxiety, migraine, tubal ligation who presents emergency department for evaluation of onset of a migraine today in the setting of respiratory symptoms over the past 2 weeks as per HPI. Overall she appears uncomfortable, has associated photophobia. She is without tachycardia tachypnea or hypoxia. LS CTA. Speaking clear full sentences. No nuchal rigidity to suggest meningitis. No recent injury or trauma lower suspicion for SAH, SAH, ICH, CALL CENTER ASSISTANT mass. Would defer CT imaging at this time as she has experienced similar migraines in the past and denies any significant change to this. No red flag symptoms, no vision changes, no exacerbation with exertion no immuno compromising conditions. She has been focal neurological deficits. Will trial management with 1 L normal saline IV fluid, Toradol/Reglan/Benadryl IV. Viral serologies have resulted as negative. Obtaining CXR to exclude pneumonia. Differential Diagnosis Differential Diagnoses: The differential diagnosis associated with the presentation includes (SDH, SAH, ICH, CALL CENTER ASSISTANT mass, meningitis, encephalitis, CVA, GCA, migraine, headache) Lab Data MDM Lab Attestation statement: I reviewed the patient's lab results. (See narrative above) Labs: Lab Results 11/19/24 Range/Units 13:56 Influenza Type A (PCR) NEGATIVE (Negative) Influenza Type B (PCR) NEGATIVE (Negative) RSV RNA Qual (PCR) NEGATIVE (Negative) SARS-CoV-2 RNA (RT-PCR) NEGATIVE (Negative) Independent Interpretation I performed an independent interpretation of an: Plain X-Ray (No consolidation or infiltrate to suggest pneumonia) Radiology Impression Discussion of test interpretation with radiology: I have reviewed the radiologist's reading. Radiologist Impression: 2 view chest x-ray Comparison: CR/SR - XR CHEST 2V - 05/03/23 22:43 EDT Findings: Mediastinal contours, cardiac silhouette, and pulmonary vasculature are within normal limits. Lungs are clear. No pleural effusion or pneumothorax. IMPRESSION: 1. No acute findings. External Record Review External record reviewed: Outpatient record Prescription Management I considered prescription management with: Pain Medication Discharge Plan Discharge Clinical Impression: Migraine Sinusitis, acute Qualifiers: Sinusitis location: frontal Recurrence: non-recurrent Qualified Code(s): J01.10 - Acute frontal sinusitis, unspecified Patient Disposition: Home, Self-Care Instructions: Sinusitis (ED), Migraine Headache (ED) Additional Instructions: Be sure to rest, stay well hydrated drinking plenty of fluids, eat small frequent meals. Tylenol/ibuprofen can be used as needed for fever/pain. Complete entire course of antibiotics as prescribed in a skipped any doses or stop taking early even if you begin to feel better. Testing for COVID flu RSV were negative. Chest x-ray does not show evidence of pneumonia. [id number] cold medications may be helpful as well for symptoms. Saline nasal spray, humidifier may be helpful for nasal congestion. You may return to the emergency department with any new or worsening symptoms or concerns. Follow-up with your primary care provider as needed. Should remain out of school/ work until symptoms have resolved and have been without a fever for 24 hours without the use of Tylenol or ibuprofen. Prescriptions: New amoxicillin-pot clavulanate 875-125 mg tablet 1 tab PO BID Qty: 14 0RF No Action pantoprazole 40 mg tablet,delayed release (DR/EC) 40 mg PO QAM Qty: 30 3RF polyethylene glycol 3350 [Miralax] 17 gram/dose powder 17 g PO DAILY Qty: 510 3RF azelastine 0.15 % (205.5 mcg) spray,non-aerosol 1 spray intranasal BID Rx Instructions: administer into each nostril fluticasone propionate [Allergy Relief (fluticasone)] 50 mcg/actuation spray,suspension 1 spray intranasal DAILY Rx Instructions: administer into each nostril bupropion HCl 150 mg tablet extended release 24 hr 150 mg PO QAM diphenhydramine HCl [Benadryl] 25 mg capsule 25 mg PO TID PRN melatonin 3 mg tablet 3 mg PO BEDTIME PRN (Reason: insomnia) duloxetine 30 mg capsule,delayed release(DR/EC) 30 mg PO BEDTIME docusate sodium 100 mg capsule 100 mg PO BEDTIME Qty: 90 4RF Interventions: ED Discharge Assessment Last Done: 11/19/24 17:56 Discharge Date/Time: 11/19/24 18:18 Print Language: Singaporean
[2024-11-19] MEDS: 0.9 % Sodium Chloride 1,000 ML 999 ML IV (15:41)
[2024-11-19] MEDS: diphenhydrAMINE HCL 50 MG/ML VIAL 25 MG IVPUSH (15:51)
[2024-11-19] MEDS: Metoclopramide HCl 10 MG/2 ML VIAL IVPUSH (15:51)
[2024-11-19] MEDS: Ketorolac Tromethamine 15 MG/ML VIAL IVPUSH (15:51)
[2024-11-19 17:56] VITALS: BP 114/72; PULSE 74; RESP 18; TEMP 36.6; O2SAT 98
[2024-11-19 18:03] VITALS: BP 118/70; PULSE 66; RESP 18; TEMP 36.6; O2SAT 99
== END 2024-11-19 18:18 | disposition home or self-care (01) ==
PROVIDERS: Emergency Provider Emergency Medicine; PCP Internal Medicine
DX: G43.909 Migraine, unspecified, not intractable, without status migrainosus (principal); J01.10 Acute frontal sinusitis, unspecified; R05.9 Cough, unspecified; Z03.818 Encounter for observation for suspected exposure to other biological agents ruled out
CPT/HCPCS: 0241U; 71046; 96361; 96374; 96375; 99283; 99284; J1200; J1885; J2765

== ENCOUNTER → 2024-11-19 15:27 | Outpatient (BNV) | payer MEDICAID, SELFPAY | PROVIDERS: Emergency Provider Emergency Medicine; PCP Internal Medicine; Visit Provider Radiology Diagnostic Radiology | DX: R06.02 Shortness of breath (principal) | CPT/HCPCS: 71046 ==

== ENCOUNTER 2024-11-28 11:07 | Emergency (ER) | payer MEDICAID, SELFPAY ==
--- NOTE | ~2024-11-28 | CT_ITS ---
EXAMINATION: CT HEAD WITHOUT CONTRAST CLINICAL INFORMATION: Right-sided severe headache. COMPARISON: None available. TECHNIQUE: Contiguous axial imaging was performed from the skull base to vertex without intravenous administration of contrast. This CT examination was performed using dose optimization techniques as appropriate, variously including the following: *Automated exposure control *Adjustment of mA and/or kV according to patient size (this includes techniques or standardized protocols for targeted exams where dose is matched to indication/reason for exam; i.e. extremities or head) *Use of iterative reconstruction technique DLP: 714 FINDINGS: There is no acute intra-axial, extra-axial bleed, masses or midline shift. The young to white matter differentiation is maintained normal. The lateral ventricles are symmetrical in size and configuration without enlargement. Bone windows reveal no calvarial abnormality. There is complete opacification of right maxillary sinus. There is diffuse mucoperiosteal thickening involving right maxillary, frontal, ethmoid sinuses noted. There is no scalp soft tissue abnormality. CT/CT head/brain wo IV con IMPRESSION: No acute intracranial process seen. There is diffuse chronic inflammatory process involving the right side sinuses. Obstruction of frontoethmoidal and ostiomeatal complex. Electronically signed by: Filemon Quesada MD 11/28/2024 01:46 PM EST
[2024-11-28 11:28] VITALS: BP 145/93; PULSE 98; RESP 18; TEMP 36.4; O2SAT 100; BMI 26.6
--- NOTE | 2024-11-28 11:29 | ED.GENADULT ---
HPI - General Adult General Chief complaint: Headache Stated complaint: r side facial pain swelling Time Seen by Provider: 11/28/24 15:02 Source: patient Mode of arrival: ambulatory Limitations: no limitations History of Present Illness ED Provider: Maria Harris PA-C HPI narrative: Patient is a 34 year old assigned female at with a history of recent diagnosis of sinusitis on Augmentin, migraines, depression, GERD, and anxiety presenting to the emergency department today with worsening right sided headache / pressure. Patient states that despite being on an antibiotic for her sinus infection she continues to have right sided head and face pain. Patient denies any dizziness, lightheadedness, abdominal pain, nausea, vomiting, fever, chills, blurry vision, double vision, loss of vision, chest pain, difficulty breathing, shortness of breath, back pain, night sweats, pain with urination, increased urinary frequency, increased urinary urgency, blood in her urine or stool, syncope or a near syncopal episode, recent trauma or falls, bowel incontinence, bladder incontinence, or any other complaints at this time. Onset (ago): day(s) Location: head, face and right Relieving factors: none Exacerbating factors: none Treatments prior to arrival: other (Augmentin) Related Data Home Medications ?Medication ?Instructions ?Recorded ?Confirmed azelastine 205.5 mcg (0.15 %) 1 spray intranasal BID 08/27/20 11/13/20 nasal spray bupropion HCl 150 mg 24 hr tablet, 150 mg PO QAM 08/27/20 11/13/20 extended release fluticasone propionate 50 1 spray intranasal DAILY 08/27/20 11/13/20 mcg/actuation nasal spray,suspension (Allergy Relief (fluticasone)) diphenhydramine HCl 25 mg capsule 25 mg PO TID PRN 09/24/20 11/13/20 (Benadryl) duloxetine 30 mg capsule,delayed 30 mg PO BEDTIME 02/24/23 release melatonin 3 mg tablet 3 mg PO BEDTIME PRN insomnia 02/24/23 Previous Rx's ?Medication ?Instructions ?Recorded docusate sodium 100 mg capsule 100 mg PO BEDTIME #90 caps 01/01/24 pantoprazole 40 mg tablet,delayed 40 mg PO QAM #30 tabs 10/24/24 release polyethylene glycol 3350 17 17 g PO DAILY #510 grams 10/24/24 gram/dose oral powder (Miralax) amoxicillin 875 mg-potassium 1 tab PO BID #14 tabs 11/19/24 clavulanate 125 mg tablet doxycycline hyclate 100 mg tablet 100 mg PO BID 7 days #14 tabs 11/28/24 Allergies Allergy/AdvReac Type Severity Reaction Status Date / Time Seasonal Allergies Allergy Intermediate Itchy Eyes Verified 11/28/24 11:30 trazodone Allergy Intermediate FACIAL Verified 11/28/24 11:30 SWELLING, swelling Review of Systems Constitutional: Constitutional: Reports no additional constitutional complaints, Denies chills, Denies fever(s) and Denies night sweats Eyes: Eyes: Reports no additional eye complaints, Denies blurry vision, Denies change in vision, Denies diplopia, Denies eye discharge, Denies loss of vision and Denies eye pain ENT: Denies dizziness Comments: right sided head and face pain Cardiovascular: Cardiovascular: Reports no additional cardiovascular complaints, Denies chest pain, Denies lightheadedness, Denies Loss of Consciousness and Denies dyspnea Respiratory: Respiratory: Reports no additional respiratory complaints and Denies dyspnea Gastrointestinal: Gastrointestinal: Reports no additional gastrointestinal complaints, Denies abdominal pain, Denies melena, Denies hematochezia, Denies change in bowel habits and Denies change in stool character Genitourinary: Genitourinary: Denies hematuria, Denies urinary frequency, Denies dysuria, Denies urinary incontinence, Denies urinary hesitancy and Denies urinary urgency Musculoskeletal: Musculoskeletal: Reports no additional musculoskeletal complaints, Denies numbness and Denies tingling Neurologic: Denies dizziness, Denies loss of vision, Denies numbness and Denies tingling Psychiatric: Psychiatric: Reports no additional psychiatric complaints Endocrine: Endocrine: Reports no additional endocrine complaints Hematologic/Lymphatic: Hematologic/Lymphatic: Reports no additional hematologic/lymphatic complaints Allergic/Immunologic: Allergic/Immunologic: Reports no additional allergic/immunologic complaints PMFSH Past Medical History Attestation statement: The following information was validated with the patient. Source: old records reviewed and nursing notes reviewed Medical History Fibromyalgia GERD (gastroesophageal reflux disease) Poor weight gain in adult Anxiety MRSA (methicillin resistant Staphylococcus aureus) Migraine with aura Depression Surgical History Hx of tubal ligation Hx of laparoscopy Family History Family History Mother HTN (hypertension) Colon cancer Father Diabetes mellitus Social History Social History Household Members: Children Housing: Apartment Alcohol intake: current Alcohol intake frequency: holidays/special occasions only Patient Tobacco Use Status: Former Tobacco user Years Smoked: 10 Advance Directives: No Advance Directives Information Provided: Yes Do you have a plan to hurt others: No Plan Current occupational status: employed Current occupation: [employer] Sexual orientation: Straight/Heterosexual Gender identity: Female Physical Exam ED Vital Signs: Vital Signs - 24 hr 11/28/24 11:28 Temperature 97.6 F Pulse Rate 98 Respiratory Rate 18 Blood Pressure 145/93 H Pulse Oximetry 100 Oxygen Delivery Method Room Air BMI result Body Mass Index 26.6 Const General: cooperative, no acute distress, alert and awake Nutritional Appearance: well nourished Orientation/consciousness: patient oriented x3 Limitations: no limitations HENMT Head: Yes normal to inspection and Yes atraumatic Ears: hearing grossly normal bilaterally and external ears normal General nose exam: Normal external nose present, no nasal discharge noted and no epistaxis Face and sinus: Yes normal facial exam, No abrasion and No laceration Mouth: Normal oral and palatal mucosa present, no drooling and no muffled voice Eyes General: appearance normal, both eyes and all related structures Periorbital: periorbital findings normal Eyelids: Yes eyelids normal Conjunctivae: conjunctivae normal Pupils: Equal, round and reactive pupils present EOM: EOMs intact bilaterally Neck Neck: Yes normal visual inspection, Yes full ROM and Yes no lymphadenopathy Chest Chest palpation & inspection: normal inspection of the chest Resp Effort & Inspection: normal respiratory effort and able to speak in complete sentences GI Inspection: Yes normal to inspection Neuro General: patient oriented x3 and moves all extremities Cranial nerves: Yes Equal, round and reactive pupils present Cognition (Neuro): normal cognition Extrem General: Yes normal to inspection, Yes full ROM and Yes capillary refill normal Psych Appearance: grossly normal Mental Status: mental status grossly normal Affect: normal affect Attitude: cooperative Thought process: Normal thought process present Thought content: Normal thought content present Insight: Good insight present (Psych) Course Course Course Narrative: RME performed by Maria Harris PA-C. Patient is a 34 year old assigned female at presenting to the emergency department with right sided headache. Patient states that she was seen here recently for the same thing and started on an antibiotic for a sinus infection and continues to have a headache. Detailed physical exam and review of systems are deferred to the practice clinician. Labs, imaging, and swabs ordered. Patient placed back in the waiting room pending room availability and results. Medical Decision Making Medical Decision Making MDM Narrative: Patient is a 34 year old assigned female at with a history of recent diagnosis of sinusitis on Augmentin, migraines, depression, GERD, and anxiety presenting to the emergency department today with worsening right sided headache / pressure. Patient's physical exam was unremarkable. Patient's blood work was unremarkable. Patient's RSV testing was positive. Patient's head CT confirmed sinusitis but showed acute intracranial process. I explained my physical exam findings as well as all test results to the patient. I answered all questions asked by the patient. Patient's clinical presentation is most consistent with persistent sinusitis and acute RSV likely causing / exacerbating a migraine headache. Patient was offered to continue to wait in the waiting room until a treatment space was available for her to receive pain medication however, she declined, stating that she needed to be discharged to help her child unlock the house. Given the patient's presentation - will change antibiotic to Doxycycline. I stressed the importance of the patient taking her medication as directed (either prescribed or as the over the counter packaging recommends). I stressed the importance of the patient following up with her primary care provider and an ENT specialist. I stressed the importance of the patient returning to the emergency department immediately if her symptoms were to worsen or if she were to develop any dizziness, shortness of breath, difficulty breathing, chest pain, blurry vision, loss of vision, nausea, vomiting, abdominal pain, fever, chills, back pain, or any other complaints. Patient verbalized agreement and understanding with this treatment plan and discharge. Differential Diagnosis Differential Diagnoses: The differential diagnosis associated with the presentation includes Sinusitis Migraine headache Trigeminal neuralgia RSV COVID-19 Influenza Admission/Observation Consideration of admission/observation: Escalation of care including admission/observation considered Patient would have been admitted to the hospital had her work up had any findings where hospital admission was appropriate and her clinical presentation warranted hospital admission. Lab Data [facility] Lab Attestation statement: I reviewed the patient's lab results. My interpretation of these results are in the [facility] Rationale portion of this note. 11/28/24 12:02 11/28/24 12:02 Labs: Lab Results 11/28/24 Range/Units 12:02 WBC 9.8 (4.8-10.8) X10*3/uL RBC 4.62 (4.20-5.50) X10*6/uL Hgb 13.1 (12.0-16.0) g/dl Hct 39.3 (37.0-47.0) % MCV 85.1 (80.0-98.0) fL MCH 28.4 (27.0-33.0) pg MCHC 33.3 (31.0-35.0) g/dl RDW 13.2 (11.0-16.0) % Plt Count 247 (160-400) X10*3/uL MPV 9.7 (9.4-12.3) fL Immature Gran % (Auto) 0.4 (0.0-0.4) % Neut % (Auto) 69.7 (45-73) % Lymph % (Auto) 21.2 (20-40) % [place] % (Auto) 7.8 (2-11) % Eos % (Auto) 0.4 (0-4) % Baso % (Auto) 0.5 (0-2) % Lymph # (Auto) 2.1 (1.2-4.9) X10*3/uL [place] # (Auto) 0.8 (0.1-1.2) X10*3/uL Eos # (Auto) 0.0 (0.0-0.4) X10*3/uL Baso # (Auto) 0.1 (0.0-0.2) X10*3/uL Abs Immat Gran (auto) 0.04 H (0.00-0.03) X10*3/uL Absolute Neuts (auto) 6.8 (2.0-8.3) x10*3/uL Absolute Nucleated RBC 0.000 (0.0-0.012) X10*3/uL Nucleated RBC % (auto) 0.0 (0.0-0.2) /100WBC Sodium 138 (135-145) mmol/L Potassium 3.5 (3.3-5.1) mmol/L Chloride 111 H (96-108) mmol/L Carbon Dioxide 23 (22-29) mmol/L Anion Gap 8 L (12-20) BUN 7 L (9-16) mg/dL Creatinine 0.63 (0.5-1.4) mg/dL Estim Creat Clear Calc 134.6 Estimated GFR > 60 Random Glucose 86 (60-115) mg/dL Calcium 9.5 (8.4-10.2) mg/dL Magnesium 2.1 (1.6-2.6) mg/dL Total Bilirubin 0.4 (0.0-1.0) mg/dL AST 19 (5-31) U/L ALT 14 (0-31) U/L Alkaline Phosphatase 81 (39-117) U/L Total Protein 7.7 (6.5-8.0) g/dL Albumin 4.4 (3.5-5.0) g/dL Beta HCG, Quant < 2 mIU/mL Influenza Type A (PCR) NEGATIVE (Negative) Influenza Type B (PCR) NEGATIVE (Negative) RSV RNA Qual (PCR) POSITIVE A (Negative) SARS-CoV-2 RNA (RT-PCR) NEGATIVE (Negative) Independent Interpretation I performed an independent interpretation of an: CT Scan Interpretation: My interpretation is in agreement with the radiologist's impression of this imaging study. Report Number: [id number]: Total DLP = 714.00 mGy-cm EXAMINATION: CT HEAD WITHOUT CONTRAST CLINICAL INFORMATION: Right-sided severe headache. COMPARISON: None available. TECHNIQUE: Contiguous axial imaging was performed from the skull base to vertex without intravenous administration of contrast. This CT examination was performed using dose optimization techniques as appropriate, variously including the following: *Automated exposure control *Adjustment of mA and/or kV according to patient size (this includes techniques or standardized protocols for targeted exams where dose is matched to indication/reason for exam; i.e. extremities or head) *Use of iterative reconstruction technique DLP: 714 FINDINGS: There is no acute intra-axial, extra-axial bleed, masses or midline shift. The young to white matter differentiation is maintained normal. The lateral ventricles are symmetrical in size and configuration without enlargement. Bone windows reveal no calvarial abnormality. There is complete opacification of right maxillary sinus. There is diffuse mucoperiosteal thickening involving right maxillary, frontal, ethmoid sinuses noted. There is no scalp soft tissue abnormality. CT/CT head/brain wo IV con IMPRESSION: No acute intracranial process seen. There is diffuse chronic inflammatory process involving the right side sinuses. Obstruction of frontoethmoidal and ostiomeatal complex. Electronically signed by: Filemon Quesada MD 11/28/2024 01:46 PM [facility] Dictated By: Filemon Quesada MD Signed By: Electronically signed by Filemon Quesada MD 11/28/24 1346 Radiology Impression Discussion of test interpretation with radiology: I have reviewed the radiologist's reading. Prescription Management I considered prescription management with: Antibiotic (patient switched from Augmentin to Doxycycline for persistent sinusitis) Discharge Plan Discharge Clinical Impression: Respiratory syncytial virus (RSV), Sinusitis Patient Disposition: Home, Self-Care Instructions: Respiratory Syncytial Virus (ED), Sinusitis (ED) Additional Instructions: Follow up with your primary care provider and an ENT specialist. Return to the emergency department immediately if your symptoms worsen or if you develop any dizziness, shortness of breath, difficulty breathing, chest pain, blurry vision, loss of vision, nausea, vomiting, abdominal pain, fever, chills, back pain, or any other complaints. Prescriptions: New doxycycline hyclate 100 mg tablet 100 mg PO BID 7 Days Qty: 14 0RF No Action pantoprazole 40 mg tablet,delayed release (DR/EC) 40 mg PO QAM Qty: 30 3RF polyethylene glycol 3350 [Miralax] 17 gram/dose powder 17 g PO DAILY Qty: 510 3RF amoxicillin-pot clavulanate 875-125 mg tablet 1 tab PO BID Qty: 14 0RF azelastine 0.15 % (205.5 mcg) spray,non-aerosol 1 spray intranasal BID Rx Instructions: administer into each nostril fluticasone propionate [Allergy Relief (fluticasone)] 50 mcg/actuation spray,suspension 1 spray intranasal DAILY Rx Instructions: administer into each nostril bupropion HCl 150 mg tablet extended release 24 hr 150 mg PO QAM diphenhydramine HCl [Benadryl] 25 mg capsule 25 mg PO TID PRN melatonin 3 mg tablet 3 mg PO BEDTIME PRN (Reason: insomnia) duloxetine 30 mg capsule,delayed release(DR/EC) 30 mg PO BEDTIME docusate sodium 100 mg capsule 100 mg PO BEDTIME Qty: 90 4RF Referrals: [facility] [Provider Group] (Call to establish and follow up with an ENT specialist.) Barbi Ahmadi MD [Primary Care Provider] - Stand Alone Forms: Work/School Release Discharge Date/Time: 11/28/24 15:06 Print Language: Nauruan
[2024-11-28 12:08] LABS: MANUAL DIFF FLAG NO
[2024-11-28 12:09] LABS: Basophils Absolute Auto 0.1 X10*3/uL (0.0-0.2); Basophils Percent Auto 0.5 % (0-2); Eosinophils Percent Auto 0.4 % (0-4); Hematocrit 39.3 % (37.0-47.0); Hemoglobin 13.1 g/dl (12.0-16.0); Imm Gran Abs Auto 0.04 X10*3/uL (0.00-0.03); Imm Gran Pct Auto 0.4 % (0.0-0.4); Lymphocytes Absolute Auto 2.1 X10*3/uL (1.2-4.9); Lymphocytes Percent Auto 21.2 % (20-40); Mean Corpuscular HGB Conc 33.3 g/dl (31.0-35.0); Mean Corpuscular Hemoglobin 28.4 pg (27.0-33.0); Mean Corpuscular Volume 85.1 fL (80.0-98.0); Mean Platelet Volume 9.7 fL (9.4-12.3); Monocytes Absolute Auto 0.8 X10*3/uL (0.1-1.2); Monocytes Percent Auto 7.8 % (2-11); Neutrophils Absolute Auto 6.8 x10*3/uL (2.0-8.3); Neutrophils Percent Auto 69.7 % (45-73); Platelet Count 247 X10*3/uL (160-400); Red Blood Count 4.62 X10*6/uL (4.20-5.50); Red Cell Distribution Width 13.2 % (11.0-16.0); White Blood Count 9.8 X10*3/uL (4.8-10.8)
[2024-11-28 12:33] LABS: Alanine Aminotransferase 14 U/L (0-31); Albumin Level 4.4 g/dL (3.5-5.0); Alkaline Phosphatase 81 U/L (39-117); Anion Gap 8 (12-20); Aspartate Amino Transferase 19 U/L (5-31); Bilirubin Total 0.4 mg/dL (0.0-1.0); Blood Urea Nitrogen 7 mg/dL (9-16); Calcium 9.5 mg/dL (8.4-10.2); Carbon Dioxide 23 mmol/L (22-29); Chloride 111 mmol/L (96-108); Creatinine Clr Calc Pharmacy 134.6; Estimated Glomerular Filt Rate > 60; Glucose Random 86 mg/dL (60-115); Magnesium 2.1 mg/dL (1.6-2.6); Potassium 3.5 mmol/L (3.3-5.1); Sodium 138 mmol/L (135-145); Total Protein 7.7 g/dL (6.5-8.0)
[2024-11-28 12:38] LABS: HCG Quantitative < 2 mIU/mL
[2024-11-28 12:54] LABS: Influenza A PCR NEGATIVE (Negative); Influenza B PCR NEGATIVE (Negative); Resp Syncy Virus RNA Qual PCR POSITIVE (Negative); SARS COV2 PCR INHOUSE NEGATIVE (Negative)
--- NOTE | 2024-11-28 15:06 | PC.NURSE ---
discharged by provider
== END 2024-11-28 15:06 | disposition home or self-care (01) ==
LOC: HO.ED 15:03
PROVIDERS: Physician Assistant Medical; Emergency Provider Emergency Medicine; PCP Internal Medicine
DX: J01.80 Other acute sinusitis (principal); B97.4 Respiratory syncytial virus as the cause of diseases classified elsewhere; Z79.899 Other long term (current) drug therapy; Z86.14 Personal history of Methicillin resistant Staphylococcus aureus infection; Z87.891 Personal history of nicotine dependence; Z03.818 Encounter for observation for suspected exposure to other biological agents ruled out
CPT/HCPCS: 0241U; 70450; 80053; 83735; 84702; 85025; 99281; 99284

== ENCOUNTER → 2024-11-28 11:31 | Outpatient (BNV) | payer MEDICAID, SELFPAY | PROVIDERS: PCP Internal Medicine; Visit Provider Radiology Diagnostic Radiology | DX: R51.9 Headache, unspecified (principal) | CPT/HCPCS: 70450 ==

== ENCOUNTER 2024-12-02 08:49 | Outpatient (REF) | payer MEDICAID, SELFPAY ==
--- OUTSIDE RECORDS SUMMARY | 2024-12-02 09:07 | XMS_ITS | Encounter Summary ---
Author Organization [facility] Address [address] [place] [address] Care Team Providers Care Market Research Interviewer Name Role Phone Carito Edwards Primary Care Provider [phone] Barbi Ahmadi MD Primary Care Provider + Encounter Details Date Type Department Care Team (Late st Contact Info) Description 05/29/2023 Orders Only [facility] MEDICINE [address] [place] [address] Carito Edwards FNP [address] [place] [address] Bacterial vaginitis (Primary Dx) Social History Tobacco Use Types Packs/Day Years Used Date Smoking Tobacco: Former Cigarettes Q uit: 2020 Smokeless Tobacco: Never Alcohol Use Standard Drinks/Week Comments Not Currently 0 (1 standard drink = 0.6 oz pur e alcohol) Depression Answer Date Recorded Patient Health Questionnaire-9 Score 10 02/09/2023 Depression Answer Date Recorded Patient Health Questionnaire-2 Score 0 02/09/2023 Comments Unknown Sex and Gender Information Value Date Recorded Sex Assigned at Female 09/01/2022 10:16 AM EDT Legal Sex Female 10:16 AM EDT Gender Identity Female 09/01/2022 10:16 AM EDT Sexual Orientation Straight 09/01/2022 10 :16 AM EDT documented as of this encounter Plan of Treatment Not on file documented as of this encounter Visit Diagnoses Diagnosis Bacterial vaginitis- Primary Unspecified vaginitis and vulvovaginitis documented in this encounter Additional Health Concerns Assessment Noted Time PHQ-9 Depression Total Score: 10 023 10:42 AM EDT documented as of this encounter Care Teams Market Research Interviewer Relationship Specialty Start Date End Date Carito Edwards FNP [address] [place] [address] PCP - General Family Medicine 12/16/22 06/30/24 Barbi Ahmadi MD [address] [place] [address] PCP - General Internal Medicine 07/01/24 documented as of this encounter
--- OUTSIDE RECORDS SUMMARY | 2024-12-02 09:07 | XMS_ITS | Encounter Summary ---
Author Organization [employer] [facility] Address [address] [place] [address] Care Team Providers Care Quality Head Name Role Phone Barbi Ahmadi MD Primary Care Provider + Encounter Details Date Type Department Care Team (Late st Contact Info) Description 11/19/2024 Orders Only GENERIC EXTERNAL DATA DEPARTMENT Provider, Generic External Data Social History Tobacco Use Types Packs/Day Years Used Date Smoking Tobacco: Former Cigarettes Q uit: 2020 Smokeless Tobacco: Never Alcohol Use Standard Drinks/Week Comments Yes 0 (1 standard drink = 0.6 oz pur e alcohol) social Depression Answer Date Recorded Patient Health Questionnaire-9 Score 9 04/12/2024 Patient Health Questionnaire-9 Score 9 04/12/2024 Last PHQ-9: Questionnaire Data Not on file 0 04/12/2024 Housing Stability Answer Date Recorded What is your housing situation today? I have laquita pneny 03/29/[address] you li ve. Do you have problems with any of the following? None of the above 03/29/2024 Food Insecurity Answer Date Recorded Within the past 12 months, y ou worried that your food would run out before you got money to buy more: Never True 03/29/2024 Within the past 12 months,th e food you bought just didn't last and you didn't have enough money to get more: Never True Transportation Answer Date Recorded In the past 12 months, has l ack of transportation kept you from medical appts, meetings, work or from getting things needed for daily living? No 03/29/2024 Utilities Answer Date Recorded In the past 12 months, has t he electric, gas, oil or water company threatened to shut off services in your home? No 03/29/2024 Depression Answer Date Recorded Patient Health Questionnaire-2 Score 2 04/12/2024 Comments No Sex and Gender Information Value Date Recorded Sex Assigned at Female 09/01/2022 10:16 AM EDT Legal Sex Female 10:16 AM EDT Gender Identity Female 09/01/2022 10:16 AM EDT Sexual Orientation Straight 09/01/2022 10 :16 AM EDT documented as of this encounter Plan of Treatment Not on file documented as of this encounter Procedures Procedure Name Priority Date/Time Associated Diagnosis Comments XR CHEST 2 VIEWS Routine 11/19/2024 4:13 PM EST SARS COV2/INFLUENZA A/B AND RSV RNA QL NAAT Routine 11/19/2024 1:56 PM EST documented in this encounter Results * XR Chest 2 Views (11/19/2024 4:13 PM EST) Anatomical Region Laterality Modality Chest Radiographic Lamar ging 11/19/2024 4:13 PM EST Narrative 11/19/2024 4:16 PM EST ? [facility] ?[address] ?[place] [address] ?XRay Report ? Signed ? Patient: Nikky Gunter ?MR#: [id number] ?? [id number] ? : 1990 ?Acct:[id number] ? Age/Sex: 34 / F ?ADM Date: 11/19/24 ? Loc: HO.ED ? Attending Dr: ? Ordering Physician: Neris Doan CNP ?? Date of Service: 11/19/24 ?? Procedure(s): XR chest 2V ?? Accession Number(s): [id number] ? cc: Neris Doan CNP; Barbi Ahmadi MD ? CLINICAL HISTORY: shortness of breath ? 2 view chest x-ray ? Comparison: CR/SR - XR CHEST 2V - 7/12/25 22:43 EDT ? Findings: ?? Mediastinal contours, cardiac silhouette, and pulmonary vasculature are ?? within normal limits. ?? Lungs are clear. ?? No pleural effusion or pneumothorax. ? IMPRESSION: ?? 1. No acute findings. ? This document has been electronically signed by: Adalberto Prieto MD on ?? 11/19/2024 16:13:47 ? Dictated By: ?Adalberto Prieto MD ? Signed By: ?<Electronically signed by Adalberto Prieto MD in OV> ? 11/19/24 1615 ? DD/ ? TD/TT: 11/19/24 1613 ? Probate Lawyer: ? Procedure Note Thierno, Image - 11/19/[address] [address] XRay Report Signed Patient: Nikky Gunter JMR#: [id number] : 1990Acct:[id number] Age/Sex: 34 / FADM Date: 11/19/24 Loc: HO.ED Attending Dr: Ordering Physician: Neris Doan CNP Date of Service: 11/19/24 Procedure(s): XR chest 2V Accession Number(s): [id number] cc: Neris Doan CNP; Barbi Ahmadi MD CLINICAL HISTORY: shortness of breath 2 view chest x-ray Comparison: CR/SR - XR CHEST 2V - 05/03/23 22:43 EDT Findings: Mediastinal contours, cardiac silhouette, and pulmonary vasculature are within normal limits. Lungs are clear. No pleural effusion or pneumothorax. IMPRESSION: 1. No acute findings. This document has been electronically signed by: Adalberto Prieto MD on 11/19/2024 16:13:47 Dictated By: Adalberto Prieto MD Signed By: <Electronically signed by Adalberto Prieto MD in OV> 11/19/24 1615 DD/ 1613 TD/TT: 11/19/24 1613 Probate Lawyer: [facility] External Provider IMG XR PROCEDURES Edited Result - Final * SARS-CoV-2 RNA, Influenza A/B, and RSV RNA, Ql NAAT (11/19/2024 1:56 PM EST) Influenza A PCR NEGATIVE Negative [facility] Influenza B PCR NEGATIVE Negative [facility] Resp Syncy Virus RNA Qual PCR NEGATIVE Negative [facility] SARS COV2 PCR NEGATIVE Negative [facility] Comment:All test results mus t be correlated with clinical findings.Negative results do not preclude SARS-CoV2, influenza Avirus, influenza B virus and/or RSV infectionand should not be used as the sole basis for treatment orother patient management decisions. Negative results must becombined with clinical observations, patient history, andepidemiological information.This test has not been evaluated for monitoring treatment ofinfection.This test has been authorized by the FDA under an EmergencyUse Authorization (EUA) for use by authorized laboratories.Testing performed on the [employer] GeneXpert utilizingreal-time RT-PCR.All SARS CoV2 and positive influenza A/B results arereported to [facility]. 11/19/2024 1:56 PM EST 11/19/2024 2:02 PM EST us Generic External Data Provider LAB MICROBIOLOGY - GENERAL ORDERABLES Final Result [facility] [address] [place] [phone] documented in this encounter Visit Diagnoses Not on filedocumented in this encounter Additional Health Concerns Assessment Noted Time PHQ-9 Depression Total Score: 9 04/12/20 24 9:00 AM EDT documented as of this encounter Care Teams Quality Head Relationship Specialty Start Date End Date Barbi Ahmadi MD [address] [place] [address] PCP - General Internal Medicine 07/01/24 documented as of this encounter
--- OUTSIDE RECORDS SUMMARY | 2024-12-02 09:07 | XMS_ITS | Encounter Summary ---
Author Organization [employer] [facility] Address [address] [place] [address] Care Team Providers Care Bariatric Program Coordinator Name Role Phone Barbi Ahmadi MD Primary Care Provider + Encounter Details Date Type Department Care Team (Late st Contact Info) Description 11/28/2024 Orders Only GENERIC EXTERNAL DATA DEPARTMENT Provider, [...] your housing situation today? I have laquita penny 03/29/[address] you li [...] Procedure Name Priority Date/Time Associated Diagnosis Comments CT HEAD WO CONTRAST Routine 11/28/2024 1 2:38 PM EST SARS COV2/INFLUENZA A/B AND RSV RNA QL NAAT Routine 11/28/2024 12:02 PM EST CBC WITH AUTO DIFFERENTIAL Routine 11/28/2024 12:02 PM EST HCG, TOTAL, QN Routine 11/28/2024 12:02 PM EST MAGNESIUM Routine 11/28/2024 12:02 PM EST COMPREHENSIVE METABOLIC PANEL Routine 11/28/2024 12:02 PM EST documented in this encounter Results * CT Head w/o Contrast (11/28/2024 12:38 PM EST) Anatomical Region Laterality Modality Head, Neck Computed Tomogra phy 11/28/2024 12:3 8 PM EST Narrative 11/28/2024 1:49 PM EST ? [facility] ?[address] ?[place] [address] ? CT Scan Report ? Signed ? Patient: Lowell Silva,Nikky J ?MR#: [id number] ?? [id number] ? : 1990 ?Acct:[id number] ? Age/Sex: 34 / F ?ADM Date: 01/27/25 ? Loc: HO.ED ? Attending Dr: ? Ordering Physician: Maria Harris ?? Date of Service: 11/28/24 ?? Procedure(s): CT head/brain wo IV con ?? Accession Number(s): [id number] ? cc: Barbi Ahmadi MD; Maria Harris ? Report Number: ?? [id number]: Total DLP = ??714.00 mGy-cm ?? EXAMINATION: ?? CT HEAD WITHOUT CONTRAST ? CLINICAL INFORMATION: ?? Right-sided severe headache. ? COMPARISON: ?? None available. ? TECHNIQUE: ?? Contiguous axial imaging was performed from the skull base to vertex ?? without intravenous administration of contrast. ? This CT examination was performed using dose optimization techniques as ?? appropriate, variously including the following: ?? *Automated exposure control ?? *Adjustment of mA and/or kV according to patient size (this includes ?? techniques or standardized protocols for targeted exams where dose is ?? matched to indication/reason for exam; i.e. extremities or head) ?? *Use of iterative reconstruction technique ?? DLP: 714 ? FINDINGS: ?? There is no acute intra-axial, extra-axial bleed, masses or midline ?? shift. The young to white matter differentiation is maintained normal. ?? The lateral ventricles are symmetrical in size and configuration ?? without enlargement. Bone windows reveal no calvarial abnormality. ?? There is complete opacification of right maxillary sinus. There is ?? diffuse mucoperiosteal thickening involving right maxillary, frontal, ?? ethmoid sinuses noted. ? There is no scalp soft tissue abnormality. ? CT/CT head/brain wo IV con ?? IMPRESSION: No acute intracranial process seen. ? There is diffuse chronic inflammatory process involving the right side ?? sinuses. Obstruction of frontoethmoidal and ostiomeatal complex. ? Electronically signed by: ??Filemon Quesada MD ??11/28/2024 01:46 PM EST RP ? Dictated By: ?Sangita,Filemon S MD ? Signed By: ?<Electronically signed by Filemon S Sangita, MD in OV> ?11/28/24 1346 ? DD/ 1238 ? TD/TT: 11/28/24 1321 ? Archeology Faculty Member: MSM ? Procedure Note Thierno, Image - 11/28/[address] [address] [address] Scan Report Signed Patient: Nikky Gunter JMR#: [id number] : 1990Acct:[id number] Age/Sex: 34 / FADM Date: 11/28/24 Loc: HO.ED Attending Dr: Ordering Physician: Maria Harris Date of Service: 11/28/24 Procedure(s): CT head/brain wo IV con Accession Number(s): [id number] cc: Barbi Ahmadi MD; Maria Harris Report Number: [id number]: Total DLP = 714.00 mGy-cm EXAMINATION: CT HEAD WITHOUT CONTRAST CLINICAL INFORMATION: Right-sided severe headache. COMPARISON: None available. TECHNIQUE: Contiguous axial imaging was performed from the skull base to vertex without intravenous administration of contrast. This CT examination was performed using dose optimization techniques as appropriate, variously including the following: *Automated exposure control *Adjustment of mA and/or kV according to patient size (this includes techniques or standardized protocols for targeted exams where dose is matched to indication/reason for exam; i.e. extremities or head) *Use of iterative reconstruction technique DLP: 714 FINDINGS: There is no acute intra-axial, extra-axial bleed, masses or midline shift. The young to white matter differentiation is maintained normal. The lateral ventricles are symmetrical in size and configuration without enlargement. Bone windows reveal no calvarial abnormality. There is complete opacification of right maxillary sinus. There is diffuse mucoperiosteal thickening involving right maxillary, frontal, ethmoid sinuses noted. There is no scalp soft tissue abnormality. CT/CT head/brain wo IV con IMPRESSION: No acute intracranial process seen. There is diffuse chronic inflammatory process involving the right side sinuses. Obstruction of frontoethmoidal and ostiomeatal complex. Electronically signed by: Filemon Quesada MD 11/28/2024 01:46 PM [facility] Dictated By: Filemon Quesada MD Signed By: <Electronically signed by Filemon Quesada MD in OV> 11/28/24 1346 DD/ 1238 TD/TT: 11/28/24 1321 Archeology Faculty Member: [facility] External Provider IM CT PROCEDURES Final Result * (ABNORMAL) SARS-CoV-2 RNA, Influenza A/B, and RSV RNA, Ql NAAT (11/28/2024 12:02 PM EST) Pathologist [facility] Influenza A PCR NEGATIVE Negative [facility] Influenza B PCR NEGATIVE Negative [facility] Resp Syncy Virus RNA Qual PCR POSITIVE(A) Negative [facility] SARS COV2 PCR NEGATIVE Negative [facility] Comment:All test results mus t be [...] use by authorized laboratories.Testing performed on the [employer] GeneXpert utilizingreal-time RT-PCR.All SARS CoV2 and positive influenza A/B results arereported to [facility]. 11/28/2024 12:0 2 PM EST 11/28/2024 12:07 PM EST us Generic External Data Provider LAB MICROBIOLOGY - GENERAL ORDERABLES Final Result [facility] [address] [place] [phone] [phone] * hCG, Total, Quantitative (11/28/2024 12:02 PM EST) Pathologist [facility] HCG Quantitative <2 mIU/mL [facility] Comment:Weeks post LMP Appro ximate hCG(Last Menstrual Period) Range (mIU/ml)3 - 4 weeks 9 - 1304 - 5 weeks 75 - 2,6005 - 6 weeks 850 - 20,8006 - 7 weeks 4000 - 100,2007 - 12 weeks 11,500 - 289,68370 - 16 weeks 18,300 - 137,28111 - 29 weeks (2nd trimester) 1,400 - 53,51432 - 41 weeks (3rd trimester) 940 - 60,000The Nur B- hCG assay is used for the early detection ofpregnancy; it cannot be used to diagnose any conditionunrelated to . If a B-hCG level is not supportedby the clinical evidence, results should be confirmed by analternative method (qualitative urine hCG, for example). 11/28/2024 12:0 2 PM EST 11/28/2024 12:06 PM EST Generic External Data Provider LAB BLOOD ORDERAB LES Final Result Performing Organization Address [facility] Co de Phone Number [facility] [address] [place] [phone] * Magnesium (11/28/2024 12:02 PM EST) Pathologist [facility] Magnesium 2.1 1.6 - 2.6 mg/dL [facility] 11/28/2024 12:0 2 PM EST 11/28/2024 12:06 PM EST [employer] External Data Provider LAB BLOOD ORDERAB LES Final Result Performing Organization Address [facility] de Phone Number [facility] [address] [place] [phone] * (ABNORMAL) Comprehensive Metabolic Panel (11/28/2024 12:02 PM EST) Sodium 138 135 - 145 mmol/L [facility] Potassium 3.5 3.3 - 5.1 mmol/L [facility] Chloride 111(H) 96 - 108 mmol/L [facility] Carbon Dioxide 23 22 - 29 mmol/L [facility] Anion Gap 8(L) 12 - 20 [facility] Urea Nitrogen (BUN) 7(L) 9 - 16 mg/dL [facility] Creatinine, Serum 0.63 0.5 - 1.4 mg/dL [facility] Creatinine Clr Calc Pharmacy 134.6 [facility] Comment:Provided height and weight: 170.18 cm,77.111 kg.eGFR (calculated from the MDRD study equation) and eCrCl(calculated from the Cockcroft-Gault equation) are based ondifferent parameters and may not yield comparable results.If eCrCl result is absurd, please check patient'sheight/weight. Estimated Glomerular Filt Rate >60 [facility] Comment:Chronic Kidney Disea se: Estimated GFR < 60 mL/min/1.05h9Xbhzyn Kidney Disease: Estimated GFR < 15 mL/min/1.73m2 Glucose 86 60 - 115 mg/dL [facility] Calcium 9.5 8.4 - 10.2 mg/dL [facility] Bilirubin, Total 0.4 0.0 - 1.0 mg/dL [facility] Aspartate Amino Transferase 19 5 - 31 U/L [facility] Alanine Aminotransferase 14 0 - 31 U/L [facility] Total Protein 7.7 6.5 - 8.0 g/dL [facility] Albumin Level 4.4 3.5 - 5.0 g/dL [facility] Alkaline Phosphatase 81 39 - 117 U/L [facility] 11/28/2024 12:0 2 PM EST 11/28/2024 12:06 PM EST us Generic External Data Provider LAB BLOOD ORDERAB LES Final Result [facility] [address] [place] [phone] * (ABNORMAL) CBC auto differential (11/28/2024 12:02 PM EST) White Blood Count 9.8 4.8 - 10.8 X10*3/uL [facility] Red Blood Count 4.62 4.20 - 5.50 X10*6/uL [facility] Hemoglobin 13.1 12.0 - 16.0 g/dl [facility] Hematocrit 39.3 37.0 - 47.0 % [facility] Mean Corpuscular Volume 85.1 80.0 - 98.0 fL [facility] Mean Corpuscular Hemoglobin 28.4 27.0 - 33.0 pg [facility] Mean Corpuscular HGB Conc 33.3 31.0 - 35.0 g/dl [facility] Red Cell Distribution Width 13.2 11.0 - 16.0 % [facility] Platelet Count 247 160 - 400 X10*3/uL [facility] Mean Platelet Volume 9.7 9.4 - 12.3 fL [facility] Neutrophils Percent Auto 69.7 45 - 73 % [facility] Imm Gran Pct Auto 0.4 0.0 - 0.4 % [facility] Lymphocytes Percent Auto 21.2 20 - 40 % [facility] Monocytes Percent Auto 7.8 2 - 11 % [facility] Eosinophils Percent Auto 0.4 0 - 4 % [facility] Basophils Percent Auto 0.5 0 - 2 % [facility] NRBC Pct Auto 0.0 0.0 - 0.2 /100WBC [facility] Neutrophils Absolute Auto 6.8 2.0 - 8.3 x10*3/uL [facility] Imm Gran Abs Auto 0.04(H) 0.00 - 0.03 X10*3/uL [facility] Lymphocytes Absolute Auto 2.1 1.2 - 4.9 X10*3/uL [facility] Monocytes Absolute Auto 0.8 0.1 - 1.2 X10*3/uL [facility] Eosinophils Absolute Auto 0.0 0.0 - 0.4 X10*3/uL [facility] Basophils Absolute Auto 0.1 0.0 - 0.2 X10*3/uL [facility] NRBC Abs Auto 0.000 0.0 - 0.012 X10*3/uL [facility] 11/28/2024 12:0 2 PM EST 11/28/2024 12:06 PM EST us Generic External Data Provider LAB BLOOD ORDERAB LES Final Result [facility] [address] [place] [phone] documented in this encounter Visit Diagnoses Not on filedocumented in this encounter Additional Health Concerns Assessment Noted Time PHQ-9 Depression Total Score: 9 04/12/20 24 9:00 AM EDT documented as of this encounter Care Teams Bariatric Program Coordinator Relationship Specialty Start Date End Date Barbi Ahmadi MD [address] [place] [phone] PCP - General Internal Medicine 07/01/24 documented as of this encounter
--- OUTSIDE RECORDS SUMMARY | 2024-12-02 09:07 | XMS_ITS | Encounter Summary ---
Author Organization [employer] Address [address] [place] [address] Care Team Providers Care Refund Clerk Name Role Phone Barbi Ahmadi MD Primary Care Provider + Reason for Visit * Reason Onset Date Comments Nurse Triage 11/16/2024 Encounter Details Date Type Department Care Team ([facility] st Contact Info) Description 11/16/2024 Telephone [facility] [address] [place], [place] [phone] Barbi Ahmadi MD [address] [place] [phone] Nurse Triage Social History Tobacco Use Types Packs/Day Years [...] AM EDT documented as of this encounter Miscellaneous Notes * Telephone Encounter - Katharine Yeung RN - 11/16/2024 4:46 PM EST Triage call Pt reports 2 weeks of cough with chest pain, cold sx, difficulty breathing both at restand with exertion . Pt sounds tired, weak, reports body aches and not feeling well at all. Neg for fever. Pt is advised to seek evaluation at closest Ed and then after seen there call for follow up apt. Pt agrees with this disposition. Protocol Used: Breathing Difficulty (Adult) Protocol-Based Disposition: Go to Office or Video Visit Now Video visit not offered Positive Triage Questions: * Continuous (nonstop) coughing * Patient wants to be seen * All higher-acuity triage questions were negative Care Advice Discussed: * Reasons To Call Back - Severe difficulty breathing occurs - Fever more than 100.4 F (38.0 C) - You become worse * Telephone Encounter - René Price - 11/16/2024 4:19 PM EST Symptoms: Cough, Chest Pain - Adult Outcome: Talk to a nurse or provider within 15 minutes Reason: Getting worse Please contact pt at [phone]. documented in this encounter Plan of Treatment Not on file documented as of this encounter Visit Diagnoses Not on filedocumented in this encounter Additional Health Concerns Assessment Noted Time PHQ-9 Depression Total Score: 9 04/12/20 24 9:00 AM EDT documented as of this encounter Care Teams Refund Clerk Relationship Specialty Start Date End Date Barbi Ahmadi MD [address] [place] [phone] PCP - General Internal Medicine 07/01/24 documented as of this encounter
--- OUTSIDE RECORDS SUMMARY | 2024-12-02 09:07 | XMS_ITS | Encounter Summary ---
Author Organization [employer] Address [address] [place] [address] Care Team Providers Care Crude Oil Treater Name Role Phone Barbi Ahmadi MD Primary Care Provider + Reason for Visit * Reason Comments Med Refill Encounter Details Date Type Department Care Team (Late st Contact Info) Description 07/03/2024 Refill [facility] [address] [place], [place] [phone] Waqas Chen FNP Anxiety and depression Social History Tobacco Use Types Packs/Day Years [...] Patient Health Questionnaire-2 Score 2 04/12/2024 Comments Unknown Sex and Gender Information Value Date Recorded Sex Assigned at Female 09/01/2022 10:16 AM EDT Legal Sex Female 10:16 AM EDT Gender Identity Female 09/01/2022 10:16 AM EDT Sexual Orientation Straight 09/01/2022 10 :16 AM EDT documented as of this encounter Plan of Treatment Not on file documented as of this encounter Visit Diagnoses Diagnosis Anxiety and depression documented in this encounter Additional Health Concerns Assessment Noted Time PHQ-9 Depression Total Score: 9 04/12/20 24 9:00 AM EDT documented as of this encounter Care Teams Crude Oil Treater Relationship Specialty Start Date End Date Barbi Ahmadi MD [address] [place] [phone] PCP - General Internal Medicine 07/01/24 documented as of this encounter
--- OUTSIDE RECORDS SUMMARY | 2024-12-02 09:07 | XMS_ITS | Encounter Summary ---
Author Organization [employer] Address [address] [place] [address] Care Team Providers Care Clerk Stenographer Name Role Phone Barbi Ahmadi MD Primary Care Provider + Reason for Visit * Reason Comments Acupuncture Encounter Details Date Type Department Care Team ([facility] st Contact Info) Description 11/15/2024 9:15 AM EST Office Visit [facility] [address], [place] [phone] Patricia Garcia MD [address], [place] [phone] Fibromyalgia (Primary Dx); Anxiety and depression Social History Tobacco Use [...] AM EDT documented as of this encounter Progress Notes * Patricia Garcia MD - 11/15/2024 9:15 AM EST Subjective Patient ID: Nikky Silva is a 34 y.o. female who presents for Acupuncture. Nikky is here for acupuncture treatment #1. She is interested in addressing fibromyalgia, depressionand anxiety. She was referred here by her PCP, Dr. Ahmadi. No previous experience with acupuncture. Review of Systems Musculoskeletal: Positive for myalgias. Psychiatric/Behavioral: The patient is nervous/anxious. Objective Physical Exam Constitutional: Appearance: Normal appearance. Skin: General: Skin is warm and dry. Neurological: Mental Status: She is alert and oriented to person, place, and time. Assessment/Plan Diagnoses and all orders for this visit: Fibromyalgia Anxiety and depression Written consent obtained for ear acupuncture. Ears prepped with alcohol pad. Five ear points needled bilaterally: Sympathetic, Messer Men, Kidney, Liver and Lung. Treatment duration: 30 minutes. Good hemostasis. Patient tolerated well. Follow up weekly for repeat acupuncture treatments as desired. documented in this encounter Plan of Treatment Not on file documented as of this encounter Visit Diagnoses Diagnosis Fibromyalgia- Primary Unspecified myalgia and myositis Anxiety and depression documented in this encounter Additional Health Concerns Assessment Noted Time PHQ-9 Depression Total Score: 9 04/12/20 24 9:00 AM EDT documented as of this encounter Care Teams Clerk Stenographer Relationship Specialty Start Date End Date Barbi Ahmadi MD [address] [place] [id number] PCP - General Internal Medicine 07/01/24 documented as of this encounter
--- OUTSIDE RECORDS SUMMARY | 2024-12-02 09:07 | XMS_ITS | Encounter Summary ---
Author Organization [employer] Address [address] [place] [address] Care Team Providers Care Rn Heart Name Role Phone Barbi Ahmadi MD Primary Care Provider + Encounter Details Date Type Department Care Team (Latest Contact Info) Description 11/15/2024 Travel Social History Tobacco Use Types Packs/Day Years [...] Time PHQ-9 Depression Total Score: 9 04/12/20 9:00 AM EDT documented as of this encounter Care Teams Rn Heart Relationship Specialty Start Date End Date Barbi Ahmadi MD [address] [place] [id number] PCP - General Internal Medicine 07/01/24 documented as of this encounter
--- OUTSIDE RECORDS SUMMARY | 2024-12-02 09:07 | XMS_ITS | Clinical Summary ---
Author Organization [employer] Address [address] [facility] [address] [place] [address] Care Team Providers Care [facility] Name Role Phone Barbi Ahmadi MD Primary Care Provider + Allergies Active Allergy Reactions Criticality Noted Date Comments Trazodone 08/09/2012 Medications * This document contains information received from the source organization and may not represent a complete record from that organization. fluticasone (Flonase) 50 MCG/ACT nasal sprayIndicatio ns:Seasonal allergies USE 1 SPRAY IN EACH NOSTRIL IN THE MORNING SHAKE GENTLY 48 g 06/23/20 23 Active oxymetazoline (Afrin Nasal Thompson) 0.05 % nasal spray Administer 2 sprays into each nostril every 12 (twelve) hours if needed for congestion for up to 2 days. Do not use for more than 3 days. 30 mL 01/15/20 24 Active cetirizine (ZyrTEC) 10 MG tabletIndicati ons:Seasonal allergies TAKE 1 TABLET BY MOUTH DAILY IN THE MORNING 90 tablet 3 04/13/20 24 Active polyethylene glycol, PEG, 3350 (Glycolax) 17 GM/SCOOP powder Mix 17g (1 capful) in 8 ounces of water and take by mouth every day 04/07/20 24 Active pantoprazole (ProtoNix) 40 MG EC tablet TAKE 1 TABLET BY MOUTH 30 MINUTES BEFORE BREAKFAST 01/01/20 24 Active docusate sodium (Colace) 100 MG capsule TAKE 1 CAPSULE BY MOUTH EVERY DAY AT BEDTIME 04/07/20 24 Active Diclofenac Sodium 1 % gel APPLY 2 GRAMS TOPICALLY TO AFFECTED AREA(S) FOUR TIMES DAILY 300 g 2 10/25/20 24 Active naproxen (Naprosyn) 500 MG tablet TAKE 1 TABLET BY MOUTH TWICE DAILY 60 tablet 2 10/25/20 24 Active buPROPion SR (Wellbutrin SR) 150 MG 12 hr tabletIndicati ons:Anxiety and depression Take 1 tablet (150 mg) by mouth in the morning. 30 tablet 1 11/22/19 25 025 Active melatonin 10 MG tabletIndicati ons:Anxiety and depression Take 1 tablet (10 mg) by mouth Once per day. 30 tablet 1 11/22/19 25 025 Active melatonin 10 MG tablet Take 1 tablet (10 mg) by mouth Once per day. 90 tablet 3 10/21/20 24 025 Discontinued(Re order (will not trigger notification to Pharmacy)) buPROPion SR (Wellbutrin SR) 150 MG 12 hr tabletIndicati ons:Anxiety and depression Take 1 tablet (150 mg) by mouth in the morning. 30 tablet 11 10/21/20 24 025 Discontinued(Re order (will not trigger notification to Pharmacy)) Active Problems Problem Noted Date Diagnosed Date Cervical paraspinal muscle spasm 10/21/2024 Assessment & Plan (10/21/2024 3:39 PM EST): Advised to use Diclofenac gel bid prn + Tylenol prn Advised to come to acupuncture clinic and start PT. Migraine with aura and witho ut status migrainosus, not intractable 10/21/2024 Assessment & Plan (10/21/2024 3:45 PM EST): New onset? Will order CT scan We discussed the importance of depression rx, avoid THC use, increase exercise Take Tylenol prn, consider Topamax or prophylaxis at next appt. Fibromyalgia 04/03/2023 Assessment & Plan (10/21/2024 3:42 PM EST): I d/w her re importance of rx depression, healthy life style, increase physical activity Advised to come to acupuncture Will consider Topamax or Lyrica in the future. 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 She doesn't want therapy as she doesn't want to re enact previous trauma. She feels safe at home and is able to reach out for safety. Increase Melatonin to 10mg at bedtime, advise to come to acupuncture weekly. Avoid THC use. Assessment & Plan (04/12/2024 9:18 AM EDT): She has been off her medications for a few months because of sweating and weight loss thought to be related. However those symptoms have not improved and now she suspects they are r/t her control meds. Her mood has not been good and she would like to resume medications. Will re-start Wellbutrin SR 100 mg 1 tab in am only (has had excessive activation with long-acting or BID dosing). Will remain off Duloxetine 20 mg daily. Did not discuss Melatonin 3 mg at bedtime which she has previously taken prn. Since this provider will be retiring, patient is now referred back to PCP for further medication management. She can request referral to new prescriber in the future as needed. Any issues or concerns, call [facility]. All her questions were answered and I have wished her well. She agrees with the plan. Assessment & Plan (02/08/2024 9:26 AM EDT): Because of sweating and weight loss, patient's PCP recommended she hold her Duloxetine and Wellbutrin for a month. She has been off those medications now for approx 3 weeks and her mood is still OK, but hasn't noticed any improvement in the other symptoms. She plans to remain of the psychiatric medications pending further work-up. Therefore will not take Wellbutrin SR 100 mg 1 tab in am only (has had excessive activation with long-acting or BID dosing), or Duloxetine 20 mg daily. Did not discuss Melatonin 3 mg at bedtime which she has previously taken prn. On 09/10/2023 provider informed pt that I would be retiring. We will have final appointment mid-April to reevaluate. She agrees with the plan. Assessment & Plan (12/10/2023 2:59 PM EST): Mood is still fine, sleeping well. Has noted increased sweating, especially at night. Sweating is an identified S/E of Duloxetine. Pt has had good response to this and prefers not to discontinue now, but will have decreased dose of Duloxetine 20 mg at bedtime. Continue Wellbutrin SR 100 mg 1 tab in am only (has had excessive activation with long-acting or BID dosing), and Melatonin 3 mg at bedtime prn. Continue good sleep hygiene, no electronics in bed. Suggest cotton bedclothes and layers rather than heavy comforter. On 09/10/2023 provider informed pt that I would be retiring, but we would make every effort to ensure continuity of care. F/U with me in 2 months. She agrees with the plan. Assessment & Plan (09/10/2023 4:12 PM EST): Mood is still fine, sleeping well. Continue Wellbutrin SR 100 mg 1 tab in am only and Duloxetine 30 mg 1 at bedtime, Melatonin 3 mg at bedtime prn. Continue good sleep hygiene, no electronics in bed. Today 09/10/2023 provider informed pt that I would be retiring within the next year or so, but we would make every effort to ensure continuity of care. F/U with me in 3 months. She agrees with the plan. Assessment & Plan (02/09/2023 11:13 AM EDT): Mood is still fine. Continue Wellbutrin SR 100 mg 1 tab in am only and Duloxetine 30 mg 1 at bedtime. For sleep, try Melatonin 3 mg at bedtime prn. Continue good sleep hygiene, no electronics in bed. F/U with me in 2 months. She agrees with the plan. Assessment & Plan (12/08/2022 11:11 AM EST): Doing well. Continue Wellbutrin SR 100 mg 1 tab in am only and Duloxetine 30 mg 1 at bedtime. F/U with me in 2 months. She agrees with the plan. Encounters * This document contains information received from the source organization and may not represent a complete record from that organization. Date Type Department Care Team Description 11/28/2024 Orders Only GENERIC EXTERNAL DATA DEPARTMENT Provider, Generic External Data 11/19/2024 Orders Only GENERIC EXTERNAL DATA DEPARTMENT Provider, Generic External Data 11/16/[address] [address] Barbi Ahmadi MD Nurse Triage 11/15/2024 9:15 AM EST Office Visit [address] [address] Patricia Garcia MD Fibromyalgia (Primary Dx); Anxiety and depression 11/15/2024 Travel 11/04/[address] [address] Barbi Ahmadi MD December10/21/2024 9:15 AM EST Office Visit [address] [address] Barbi Ahmadi MD Cervical paraspinal muscle spasm (Primary Dx); Fibromyalgia; Anxiety and depression; Migraine with aura and without status migrainosus, not intractable 10/21/2024 Refill [facility] [address] [place] [phone] GomerSoledad [facility] Furuncle of buttock 10/21/2024 Refill [facility] [address] [place] [phone] Carito Edwards FNP 10/21/2024 Travel 10/20/[address] [address] Lisa Barron MA Chart prep 10/12/2024 Patient Outreach [address] [phone] Barbi Ahmadi MD Pre-visit Planning ([facility] screening completed on 04/04/2024) from Last 3 Months Immunizations Name Administration Dates Next Due DTaP 04/30/1994, 4,06/19/1993,1990,1990 HPV, Bivalent 09/03/2007 Hep B, Adolescent or Pediatric 12/11/1998,1997,01/16/1998 Influenza injectable quadriv alent IIV4 with preservative 01/21/2016 Influenza injectable quadriv alent preservative free 09/06/2021,11/25/2018 Influenza, IIV3, injectable 09/03/2007, 2 Influenza, Split (incl. lawrence fied surface antigen) 01/23/2014 MMR 01/15/1994,06/15/1991 OPV 01/15/1994, 2,06/15/1991,1989 Pfizer Covid-19 Vaccine 12+ 01/29/2022, 1,04/29/2021 Pfizer Covid-19 Vaccine 12+ galdino-sucrose (Garcia Cap) 01/29/2022 Tdap 10/16/2017,08/09/2012 Varicella 04/02/1993 Family History Medical History Relation Name Comments Diabetes type II Father passed at 6 7 (2022) Hypertension Father Colon cancer Mother passed at 72 (2 021) Hypertension Mother Stomach cancer Mother's Brother Throat cancer Mother's Brother Relation Name Status Comments Father Mother Mother's Brother Social History Tobacco Use Types Packs/Day Years Used Date Smoking Tobacco: Former Cigarettes Q uit: 2020 Smokeless Tobacco: Never Tobacco Cessation:Counseling Given: Not Answered Alcohol Use Standard Drinks/Week Comments Yes 0 [...] Orientation Straight 09/01/2022 10 :16 AM EDT Last Filed Vital Signs Vital Sign Reading Time Taken Comments Blood Pressure 123/82 10/21/2024 9:10 AM EST Pulse 90 10/21/2024 9:10 AM EST Temperature 36.7 ??C (98 ??F) 10/21/2024 9:10 AM EST Respiratory Rate 18 07/29/2024 3:53 PM EDT Oxygen Saturation 99% 10/21/2024 9:10 AM EST Inhaled Oxygen Concentration - - Weight 71.3 kg (157 lb 2 oz) 10/21/2024 9:10 AM EST Height 167.6 cm (5' 6 ) 10/21/2024 9:10 AM EST Body Mass Index 25.36 10/21/2024 9:10 AM EST Plan of Treatment Health Maintenance Due Date Last Done Comments Alcohol/Substance Use Screening 2002 HPV Vaccines (2 - 3-dose series) 10/01/2007 09/03/2007 Hepatitis A Vaccines (1 of 2 - Risk 2-dose series) 2009 COVID-19 Vaccine ( season) 2024 01/29/2022, 01/29/2022, 05/21/2021, Additional history exists Influenza Vaccine (#1) 2024 , 11/25/2018, 01/21/2016, Additional history exists Depression Monitoring (PHQ-9) 10/12/2024 04/12/2024, 04/12/2024 SDOH Screening 04/04/2025 04/04/2024 Depression Screening 04/12/2025 04/12/2024, 04/12/20 24 HPV/Cotest 08/27/2025 08/27/2020, 08/27/2020 Pap Smear 08/27/2025 08/27/2020 Family Planning (PISQ) 10/21/2025 10/21/2024 Tobacco Screening 11/22/2025 11/22/2024 DTaP/Tdap/Td Vaccines (8 - Td or Tdap) 10/16/2027 10/16/2017, 09/14/2014, 08/09/2012, Additional history exists Zoster Vaccines (1 of 2) 2040 RSV Patients and Patients Aged 60 years or older (1 - 1-dose 75+ series) 2065 IPV Vaccines Completed 01/15/1994, 02/1992, 06/15/1991, Additional history exists Hepatitis B Vaccines Completed 12/11/1998, 10/08/1998, 01/16/1998 HIV Screening Completed 01/08/2024, 12/2022, 01/06/2022, Additional history exists Hepatitis C Screening Completed 01/08/2024 , 01/06/2022, 08/27/2020 HIB Vaccines Aged Out No longer eligi ble based on patient's age to complete this topic Meningococcal Vaccine Aged Out No asher ceferino eligible based on patient's age to complete this topic Pneumococcal Vaccine: Pediatrics (0 to 5 Years) and At-Risk Patients (6 to 49) Years) Aged Out No longer eligible based on patient's age to complete this topic RSV under 20 months Aged Out No longe r eligible based on patient's age to complete this topic Rotavirus Vaccines Aged Out No longer eligible based on patient's age to complete this topic Procedures Procedure Name Priority Date/Time Associated Diagnosis Comments CT HEAD WO CONTRAST Routine 11/28/2024 1 2:38 PM EST HCG, TOTAL, QN Routine 11/28/2024 12:02 PM EST MAGNESIUM Routine 11/28/2024 12:02 PM EST COMPREHENSIVE METABOLIC PANEL Routine 11/28/2024 12:02 PM EST CBC WITH AUTO DIFFERENTIAL Routine 11/28/2024 12:02 PM EST SARS COV2/INFLUENZA A/B AND RSV RNA QL NAAT Routine 11/28/2024 12:02 PM EST XR CHEST 2 VIEWS Routine 11/19/2024 4:13 PM EST SARS COV2/INFLUENZA A/B AND RSV RNA QL NAAT Routine 11/19/2024 1:56 PM EST DRUG MONITOR, PANEL 1, SCREEN, URINE Routine 11/15/2024 8:51 AM EST Anxiety and depression ESTRADIOL, FREE Routine 10/13/2024 8:04 AM EST PROLACTIN Routine 10/13/2024 8:04 AM EST LH Routine 10/13/2024 8:04 AM EST FSH Routine 10/13/2024 8:04 AM EST TSH Routine 10/13/2024 8:04 AM EST HEPATITIS C AB W/REFL TO HCV RNA, QN, PCR Routine 01/08/2024 11:05 AM EST HIV 1/2 ANTIGEN/ANTIBODY, FOURTH GENERATION W/RFL Routine 01/08/2024 11:05 AM EST ZZZ HISTORICAL HPV E6/E7 RFLX OLGA 16 18/45 Routine 08/27/2020 2:55 PM EDT HM PAP/HPV Routine 08/27/2020 from Last 3 Months or Most Recently Relevant to Health Maintenance Results * CT Head w/o Contrast (11/28/2024 12:38 PM EST) Anatomical Region Laterality Modality Head, Neck Computed Tomogra phy 11/28/2024 12:3 8 PM EST Narrative 11/28/2024 1:49 PM EST ? [facility] ?[address] ?[place] [address] ? CT Scan Report ? Signed ? Patient: Etienne Silva,Nikky J ?MR#: [id number] ?? [id number] ? : 1990 ?Acct:[id number] ? Age/Sex: 34 / F ?ADM Date: 11/28/24 ? Loc: HO.ED ? Attending Dr: ? Ordering Physician: Maria Harris ?? Date of Service: 11/28/24 ?? Procedure(s): CT head/brain wo IV con ?? Accession Number(s): [id number] ? cc: Barbi Ahmadi MD; Maria Harris ? Report Number: ?? [id number]: Total DLP = ??714.00 mGy-cm ?? EXAMINATION: [...] 01:46 PM EST RP ? Dictated By: ?Filemon Quesada MD ? Signed By: ?<Electronically signed by Filemon Quesada MD in OV> ?11/28/24 1346 ? DD/ 1238 ? TD/TT: 11/28/24 1321 ? Server Administrator: MSM ? Procedure Note Donotuseinterpreter, Image - 11/28/[address] [address] [address] Scan Report Signed Patient: Nikky Gunter JMR#: [id number] : 1990Acct:[id number] Age/Sex: 34 / FADM Date: 11/28/24 Loc: HO.ED Attending Dr: Ordering Physician: Maria Harris Date of Service: 11/28/24 Procedure(s): CT head/brain wo IV con Accession Number(s): [id number] cc: Barbi Ahmadi MD; Maria Harris Report Number: [id number]: Total DLP = 714.00 mGy-cm EXAMINATION: CT [...] by: Filemon Quesada MD 11/28/2024 01:46 PM EST Dictated By: Filemon Quesada MD Signed By: <Electronically signed by Filemon Quesada MD in OV> 11/28/24 1346 DD/ 1238 TD/TT: 11/28/24 1321 Server Administrator: [facility] External Provider IMG CT PROCEDURES Final Result * (ABNORMAL) SARS-CoV-2 RNA, Influenza A/B, and RSV RNA, Ql NAAT (11/28/2024 12:02 PM EST) Only the most recent of2 resultswithin the time period is included. Influenza A PCR NEGATIVE Negative [facility] Influenza B PCR NEGATIVE Negative [facility] Resp Syncy Virus RNA Qual PCR POSITIVE(A) Negative [facility] SARS COV2 PCR NEGATIVE Negative [facility] Comment:All test results mus t [...] use by authorized laboratories.Testing performed on the [employer] GeneXpert utilizingreal-time RT-PCR.All SARS CoV2 and positive influenza A/B results arereported to [facility]. 11/28/2024 12:0 2 PM EST 11/28/2024 12:07 PM EST Generic External Data Provider LAB MICROBIOLOGY - GENERAL ORDERABLES Final Result [facility] [address] [place] [phone] * (ABNORMAL) CBC auto differential (11/28/2024 12:02 PM EST) White Blood Count 9.8 4.8 - 10.8 X10*3/uL [facility] Red Blood Count 4.62 4.20 - 5.50 X10*6/uL [facility] Hemoglobin 13.1 12.0 - 16.0 g/dl [facility] Hematocrit 39.3 37.0 - 47.0 % [facility] Mean Corpuscular Volume 85.1 80.0 - 98.0 fL [facility] Mean Corpuscular Hemoglobin 28.4 27.0 - 33.0 pg [facility] Mean Corpuscular HGB Conc 33.3 31.0 - 35.0 g/dl [facility] Red Cell Distribution Width 13.2 11.0 - 16.0 % [facility] Platelet Count 247 160 - 400 X10*3/uL [facility] Mean Platelet Volume 9.7 9.4 - 12.3 fL [facility] Neutrophils Percent Auto 69.7 45 - 73 % [facility] Imm Gran Pct Auto 0.4 0.0 - 0.4 % [facility] Lymphocytes Percent Auto 21.2 20 - 40 % [facility] Monocytes Percent Auto 7.8 2 - 11 % [facility] Eosinophils Percent Auto 0.4 0 - 4 % [facility] Basophils Percent Auto 0.5 0 - 2 % [facility] NRBC Pct Auto 0.0 0.0 - 0.2 /100WBC [facility] Neutrophils Absolute Auto 6.8 2.0 - 8.3 x10*3/uL [facility] Imm Gran Abs Auto 0.04(H) 0.00 - 0.03 X10*3/uL [facility] Lymphocytes Absolute Auto 2.1 1.2 - 4.9 X10*3/uL [facility] Monocytes Absolute Auto 0.8 0.1 - 1.2 X10*3/uL [facility] Eosinophils Absolute Auto 0.0 0.0 - 0.4 X10*3/uL [facility] Basophils Absolute Auto 0.1 0.0 - 0.2 X10*3/uL [facility] NRBC Abs Auto 0.000 0.0 - 0.012 X10*3/uL [facility] 11/28/2024 12:0 2 PM EST 11/28/2024 12:06 PM EST Generic External Data Provider LAB BLOOD ORDERAB LES Final Result Performing Organization Address [facility]/ZIP Co de Phone Number [facility] [address] [place] [phone] * hCG, Total, Quantitative (11/28/2024 12:02 PM EST) HCG Quantitative <2 mIU/mL [facility] Comment:Weeks post LMP Appro ximate hCG(Last Menstrual Period) Range (mIU/ml)3 - 4 weeks 9 - 1304 - 5 weeks 75 - 2,6005 - 6 weeks 850 - 20,8006 - 7 weeks 4000 - 100,2007 - 12 weeks 11,500 - 289,16193 - 16 weeks 18,300 - 137,66916 - 29 weeks (2nd trimester) 1,400 - 53,80341 - 41 weeks (3rd trimester) 940 - [...] ORDERAB LES Final Result Performing Organization Address [facility] Co de Phone Number [facility] [address] [place] [phone] * Magnesium (11/28/2024 12:02 PM EST) Magnesium 2.1 1.6 - 2.6 mg/dL [facility] 11/28/2024 12:0 2 PM EST 11/28/2024 12:06 PM EST us Generic External Data Provider LAB BLOOD ORDERAB LES Final Result [facility] [address] [place] [phone] [phone] * (ABNORMAL) Comprehensive Metabolic Panel (11/28/2024 12:02 PM EST) Sodium 138 135 - 145 mmol/L [facility] Potassium 3.5 3.3 - 5.1 mmol/L [facility] Chloride 111(H) 96 - 108 mmol/L [facility] Carbon Dioxide 23 22 - 29 mmol/L [facility] Anion Gap 8(L) 12 - 20 [facility] Urea Nitrogen (BUN) 7(L) 9 - 16 mg/dL [facility] Creatinine, Serum 0.63 0.5 - 1.4 mg/dL [facility] Creatinine Clr Calc Pharmacy 134.6 [facility] Comment:Provided height and weight: 170.18 cm,77.111 kg.eGFR (calculated from the MDRD study equation) and eCrCl(calculated from the Cockcroft-Gault equation) are based ondifferent parameters and may not yield comparable results.If eCrCl result is absurd, please check patient'sheight/weight. Estimated Glomerular Filt Rate >60 [facility] Comment:Chronic Kidney Disea se: Estimated GFR < 60 mL/min/1.86n4Tpekte Kidney Disease: Estimated GFR < 15 mL/min/1.73m2 Glucose 86 60 - 115 mg/dL [facility] Calcium 9.5 8.4 - 10.2 mg/dL [facility] Bilirubin, Total 0.4 0.0 - 1.0 mg/dL [facility] Aspartate Amino Transferase 19 5 - 31 U/L [facility] Alanine Aminotransferase 14 0 - 31 U/L [facility] Total Protein 7.7 6.5 - 8.0 g/dL [facility] Albumin Level 4.4 3.5 - 5.0 g/dL [facility] Alkaline Phosphatase 81 39 - 117 U/L [facility] 11/28/2024 12:0 2 PM EST 11/28/2024 12:06 PM EST us Generic External Data Provider LAB BLOOD ORDERAB LES Final Result [facility] [address] [place] [phone] [phone] * XR Chest 2 Views (11/19/2024 4:13 PM EST) Anatomical Region Laterality Modality Chest Radiographic Lamar ging 11/19/2024 4:13 PM EST Narrative 11/19/2024 4:16 PM EST ? [facility] ?[address] ?[place] [address] ?XRay Report ? Signed ? Patient: Lowell SilvaNikky J ?MR#: [id number] ?? [id number] ? : 1990 ?Acct:[id number] ? Age/Sex: 34 / F ?ADM Date: 11/19/24 ? Loc: HO.ED ? Attending Dr: ? Ordering Physician: Neris Doan CNP ?? Date of Service: 11/19/24 ?? Procedure(s): XR chest 2V ?? Accession Number(s): [id number] ? cc: Neris Doan CNP; Barbi Ahmadi [...] by Adalberto Prieto MD in OV> ? 11/19/245 ? DD/ ? TD/TT: 11/19/243 ? Server Administrator: ? Procedure Note Donotbettieinterpreter, Image - 11/19/[address] [address] XRay Report Signed Patient: Nikky Gunter JMR#: [id number] : 1990Acct:[id number] Age/Sex: 34 / FADM Date: 11/19/24 Loc: HO.ED Attending Dr: Ordering Physician: Neris Doan CNP Date of Service: 11/19/24 Procedure(s): XR chest 2V Accession Number(s): [id number] cc: Neris Doan CNP; Barbi Ahmadi MD [...] signed by Adalberto Prieto MD in OV> 11/19/241614 DD/ 12 TD/TT: 11/19/241612 Server Administrator: [facility] External Provider IMG XR PROCEDURES Edited Result - Final * (ABNORMAL) Drug Monitoring, Panel 1, Screen, Urine (11/15/2024 8:51 AM EST) Opiate Screen Urine Not Detected Not Detect [facility] Comment:Opiate cut-off is 30 0 ng/mL.Positive results are unconfirmed and should not be used fornon-medical purposes. Barbiturates, Urine Not Detected Not Detect [facility] Comment:Barbiturate cut-off is 200 ng/mL.Positive results are unconfirmed and should not be used fornon-medical purposes. Phencyclidine Screen Urine Not Detected Not Detect [facility] Comment:Phencyclidine cut-of f is 25 ng/mL.Positive results are unconfirmed and should not be used fornon-medical purposes. Amphetamine Screen Urine Not Detected Not Detect [facility] Comment:Amphetamine cut-off is 1000 ng/mL.Positive results are unconfirmed and should not be used fornon-medical purposes. Benzodiazepines Screen Urine Not Detected Not Detect [facility] Comment:Benzodiazepine cut-o ff is 200 ng/mL.Positive results are unconfirmed and should not be used fornon-medical purposes. Cocaine Screen Urine Not Detected Not Detect [facility] Comment:Cocaine cut-off is 3 00 ng/mL.Positive results are unconfirmed and should not be used fornon-medical purposes. Cannabinoid Screen Urine POSITIVE(A) Not Detect [facility] Comment:Cannabinoid cut-off is 50 ng/mL.Positive results are unconfirmed and should not be used fornon-medical purposes. Methadone Screen, Urine Not Detected Not Detect ng/mL [facility] Comment:Methadone cut-off is 300 ng/mL.Positive results are unconfirmed and should not be used fornon-medical purposes. FENTANYL URINE Not Detected Not Detect [facility] Comment:Fentanyl cut-off is 1 ng/mL.Positive results are unconfirmed and should not be used fornon-medical purposes. Oxycodone Urine Screen Not Detected Not Detect ng/mL [facility] Comment:Oxycodone cut-off is 100 ng/mL.Positive results are unconfirmed and should not be used fornon-medical purposes. Buprenorphine Screen Not Detected Not Detect ng/mL [facility] Comment:Buprenorphine cut-of f is 5 ng/mL.Positive results are unconfirmed and should not be used fornon-medical purposes. Urine (Urine, Random) 11/15/2024 8:51 AM EST 11/15/2024 11:23 AM EST Hubert Rodriguez [facility] URINE ORDERABLES Final Re sult [facility] [address] [place] [address] [phone] * Estradiol, Free (10/13/2024 8:04 AM EST) Estradiol, Free 1.21 pg/mL [facility] Comment:Female Reference Ran ges for Estradiol, Free (pg/mL): Follicular Stage: 0.43-5.03 Luteal Stage: 0.40-5.55 Postmenopausal: < or = 0.38 Estradiol, Ultrasensitive, LC/MS 61 pg/mL [facility] Comment:Female Reference Ran ges for Estradiol, Ultrasensitive (pg/mL): Follicular Phase: 39-375 Luteal Phase: 48-440 Postmenopausal Phase: < or = 10This test was developed and its analytical performancecharacteristics have been determined by [employer].It has not been cleared or approved by FDA. This assay hasbeen validated pursuant to the CLIA regulations and is usedfor clinical purposes.THIS TEST WAS PERFORMED AT:[employer] [id number] [facility] [place] [address]DNOCKWIL RICH MD,PHD,DESTINY 10/13/2024 8:04 AM EST 10/13/2024 8:04 AM EST Generic External Data Provider LAB BLOOD ORDERAB LES Final Result [facility] [address] [place] [phone] * Prolactin (10/13/2024 8:04 AM EST) Prolactin 11.9 ng/mL [facility] Comment:Reference Range Fema les Non- 3.0-30.0 10.0-209.0 Postmenopausal 2.0-20.0THIS TEST WAS PERFORMED AT:[employer] [address] [phone] WILKS MD 10/13/2024 8:04 AM EST 10/13/2024 8:04 AM EST us Generic External Data Provider LAB BLOOD ORDERAB LES Final Result Performing Organization Address [facility]/ZIP Co de Phone Number [facility] [address] [place] [phone] * TSH (10/13/2024 8:04 AM EST) Thyroid Stimulating Hormone 0.77 0.32 - 4.0 uIU/mL [facility] Comment:TSH 3rd Generation ( [facility]) 10/13/2024 8:04 AM EST 10/13/2024 8:04 AM EST Generic External Data Provider LAB BLOOD ORDERAB LES Final Result Performing Organization Address [facility] de Phone Number [facility] [address] [place] [phone] * LH (10/13/2024 8:04 AM EST) Lutenizing Hormone 4.4 mIU/mL [facility] Comment:Reference Range Foll icular Phase 1.9-12.5 Mid-Cycle Peak 8.7-76.3 Luteal Phase 0.5-16.9 Postmenopausal 10.0-54.7THIS TEST WAS PERFORMED AT:[employer] [address] [phone] WILKS MD 10/13/2024 8:04 AM EST 10/13/2024 8:04 AM EST us Generic External Data Provider LAB BLOOD ORDERAB LES Final Result Performing Organization Address [facility] Co de Phone Number [facility] [address] [place] [phone] * FSH (10/13/2024 8:04 AM EST) Follicle Stimulating Hormone 5.7 mIU/mL [facility] Comment:Reference Range Foll icular Phase 2.5-10.2 Mid-cycle Peak 3.1-17.7 Luteal Phase 1.5- 9.1 Postmenopausal 23.0-116.3THIS TEST WAS PERFORMED AT:[facility] [place] [phone] WILKS MD 10/13/2024 8:04 AM EST 10/13/2024 8:04 AM EST Generic External Data Provider LAB BLOOD ORDERAB LES Final Result Performing Organization Address [facility] Co de Phone Number [facility] [address] [place] [phone] * Hepatitis C Antibody with Reflex to HCV, RNA, Quantitative, Real-Time PCR (01/08/2024 11:05 AM EST) Hepatitis C Antibody Nonreactive Nonreactive [facility] Comment:Antibodies to HCV no t detected; does not exclude early acuteHCV infection. 01/08/2024 11:0 5 AM EST 01/08/2024 11:05 AM EST Generic External Data Provider LAB BLOOD ORDERAB LES Final Result Performing Organization Address [facility] de Phone Number [facility] [address] [place] [phone] * HIV-1/2 Antigen and Antibodies, Fourth Generation, with Reflexes (01/08/2024 11:05 AM EST) HIV AB/AG Nonreactive Nonreactive [facility] Comment:HIV-1 p24 Ag and/or HIV-1/HIV-2 Ab not detected.A test result that is nonreactive does not exclude thepossibility of exposure to or infection with HIV-1 and/orHIV-2. Nonreactive results in this assay for individualswith prior exposure to HIV-1 and/or HIV-2 may be due toantigen and antibody levels that are below the limit ofdetection of this assay.The [employer] HIV Ag/Ab Combo assay result andsupplemental assay results should be interpreted inconjunction with the patient's clinical presentation,history and other laboratory results. If the results areinconsistent with clinical evidence, additional testing issuggested to confirm the result. 01/08/2024 11:0 5 AM EST 01/08/2024 11:05 AM EST us Generic External Data Provider LAB BLOOD ORDERAB LES Final Result Performing Organization Address City/[facility]/ZIP Co de Phone Number [facility] [address] [place] [phone] * HPV E6/E7 RFLX OLGA 16 18/45 (08/27/2020 2:55 PM EDT) HPV 16 RNA [facility] HPV 18/45 RNA [facility] HPV E6 E7 ADD [facility] HPV mRNA E6/E7 Not Detected Not Detected [facility] Comment: This test was performed using the APTIMA HPV Assay ([employer] This assay detects E6/E7 viral messenger RNA (mRNA) from 14 high-risk HPV types (16,18,31,33,35,39,45,51,52,56,58,59,66,68). The analytical performance characteristics of this assay have been determined by [employer]. The modifications have not been cleared or approved by the FDA. This assay has been validated pursuant to the CLIA regulations and is used for clinical purposes. THIS TEST WAS PERFORMED AT: [facility] [address] [place] [address] [address] [place], [place] ??[phone] GRECIA WILKS MD 08/27/2020 2:55 PM EDT us Historical Provider HISTORICAL/NON ORDERABLE LABS Final Result Performing Organization Address City/[facility]/ZIP Co de Phone Number [facility] [address] * Hm Pap Smear (08/27/2020) HM Pap smear performed us Historical Provider HEALTH MAINTENANCE Final Result from Last 3 Months or Most Recently Relevant to Health Maintenance Insurance [facility] C3 Care Teams Mason Tender Restoration Labor Relationship Specialty Start Date End Date Barbi Ahmadi MD [address] [place] [phone] PCP - General Internal Medicine 07/01/24
--- OUTSIDE RECORDS SUMMARY | 2024-12-02 09:07 | XMS_ITS | Encounter Summary ---
Author Organization [employer] Address [address] [place] [address] Care Team Providers Care Starchmaker Name Role Phone Barbi Ahmadi MD Primary Care Provider + Reason for Visit * Reason Onset Date Comments December recall 11/04/2024 Encounter Details Date Type Department Care Team ([facility] st Contact Info) Description 11/04/2024 Telephone [facility] [address] [place], [place] [phone] Barbi Ahmadi MD [address] [place], [place] [phone] December recall Social History Tobacco Use Types Packs/Day Years [...] encounter Miscellaneous Notes * Telephone Encounter - Lisa Barron [place] - 11/04/2024 11:23 AM EST TC to pt to schedule fu pain/MD appt with pcp. Pt did not answer, left a voice message. documented in this encounter Plan of Treatment Not on file documented as of this encounter Visit Diagnoses Not on filedocumented in this encounter Additional Health Concerns Assessment Noted Time PHQ-9 Depression Total Score: 9 04/12/20 24 9:00 AM EDT documented as of this encounter Care Teams Starchmaker Relationship Specialty Start Date End Date Barbi Ahmadi MD [address] [place] [phone] PCP - General Internal Medicine 07/01/24 documented as of this encounter
--- OUTSIDE RECORDS SUMMARY | 2024-12-02 09:07 | XMS_ITS | Encounter Summary ---
Author Organization [employer] Address [address] [place] [address] Care Team Providers Care Boiler Welder Name Role Phone Barbi Ahmadi MD Primary Care Provider + Reason for Visit * Reason Comments Med Refill Encounter Details Date Type Department Care Team ([facility] st Contact Info) Description 10/21/[address] [facility] [address] [place], [place] [phone] [facility] [address] [place], [place] [phone] Furuncle of buttock Social History Tobacco Use Types Packs/Day Years [...] as of this encounter Visit Diagnoses Diagnosis Furuncle of buttock Carbuncle and furuncle of buttock documented in this encounter Additional Health Concerns Assessment Noted Time PHQ-9 Depression Total Score: 9 04/12/20 24 9:00 AM EDT documented as of this encounter Care Teams Boiler Welder Relationship Specialty Start Date End Date Barbi Ahmadi MD [address] [place] [phone] PCP - General Internal Medicine 07/01/24 documented as of this encounter
--- OUTSIDE RECORDS SUMMARY | 2024-12-02 09:07 | XMS_ITS | Encounter Summary ---
Author Organization [facility] Address [address]t [place] [address] Care Team Providers Care Garage Manager Name Role Phone Vivian Contreras MD Primary Care Provider Carito Munroe Primary Care Provider [phone] Barbi Ahmadi MD Primary Care Provider + Encounter Details Date Type Department Care Team (Late st Contact Info) Description 09/23/[address] [facility] MED[facility] [address] [place], [place] [phone] Provider, MD Valdo Social History Tobacco Use Types Packs/Day Years Used Date Smoking Tobacco: Never Assessed Comments Unknown Sex and Gender Information Value Date Recorded Sex Assigned at Female 09/01/2022 10:16 AM EDT Legal Sex Female 10:16 AM EDT Gender Identity Female 09/01/2022 10:16 AM EDT Sexual Orientation Straight 09/01/2022 10 :16 AM EDT documented as of this encounter Plan of Treatment Not on file documented as of this encounter Procedures Procedure Name Priority Date/Time Associated Diagnosis Comments COLONOSCOPY Routine 02/04/2022 PAP/HPV Routine 08/27/2020 documented in this encounter Results * Colonoscopy (02/04/2022) Colonoscopy performed Historical Provider HEALTH MAINTENANCE Final Result * Pap Smear (08/27/2020) HM Pap smear performed us Historical Provider HEALTH MAINTENANCE Final Result documented in this encounter Visit Diagnoses Not on filedocumented in this encounter Care Teams Garage Manager Relationship Specialty Start Date End Date Vivian Contreras MD PCP - General Family Medicine 09/22/19 12/15/22 Carito Edwards FNP [address] [place] [address] PCP - General Family Medicine 12/16/22 06/30/24 Barbi Ahmadi MD [address] [place] [address] PCP - General Internal Medicine 07/01/24 documented as of this encounter
== END 2024-12-02 08:50 | disposition home or self-care (01) ==
LOC: HO.CT 08:49
PROVIDERS: PCP Internal Medicine; Visit Provider Internal Medicine
DX: Z13.89 Encounter for screening for other disorder (principal)

== ENCOUNTER 2024-12-06 07:57 | Outpatient (AMB) | payer MEDICAID, SELFPAY ==
--- NOTE | 2024-12-06 07:57 | A.OFFVIS_ITS ---
Intake Visit Reasons: Lab Follow up Intake Note: cell # [phone] Pilot Manager: Pilot Manager Present Allergies Seasonal Allergies Allergy (Intermediate, Verified 11/28/24 11:30) Itchy Eyes trazodone Allergy (Intermediate, Verified 11/28/24 11:30) FACIAL SWELLING, swelling Is last menstrual period known: Yes Last menstrual period: 12/06/24 HPI Comments Details: Tele Health Visit Total time I personally spent on visit and management today: 22 minutes. Time spent included review of pertinent office notes in the electronic health record; review of laboratory and imaging results; review of personal family medical history; performing physical exam; discussing diagnosis and plan of care with the patient; documenting the encounter in the EMR. Patient presents to discuss: Lab work, history of hot flashes at night, now worsening and going throughout the day. She reports her 1st cycle since her surgery today. History of Depo-Provera use since 2018. Previous cycle history was every 28 days for 1 week. She denies any medical changes her new medications. [facility] Medical History Fibromyalgia GERD (gastroesophageal reflux disease) Poor weight gain in adult Anxiety MRSA (methicillin resistant Staphylococcus aureus) Migraine with aura Depression Surgical History Hx of tubal ligation Hx of laparoscopy Family History Mother HTN (hypertension) Colon cancer Father Diabetes mellitus Social History Household Members: Children Housing: Apartment Alcohol intake: current Alcohol intake frequency: holidays/special occasions only Patient Tobacco Use Status: Former Tobacco user Years Smoked: 10 Current occupational status: employed 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 Sexual orientation: Straight/Heterosexual Gender identity: Female Female Reproductive History Menstrual Age of Menarche: 13 Date of last menstrual period: 12/06/24 Review of Systems Const All systems reviewed & are unremarkable except as noted in HPI and below Endo Reports no additional complaints Physical Exam Const General: cooperative, healthy appearing and no acute distress Psych Appearance: well kempt Attitude: cooperative Thought process: Normal thought process present Telehealth Telehealth Telehealth Platform[facility] Location of provider rendering services: practice address Location of patient: address on file Patient Identification confirmed using: Name, : Yes Telehealth method: video Patient verbally consented to treatment: Yes Patient verbally consented to billing insurance company: Yes Patient informed of any privacy concerns related to visit: Yes Results Reviewed Results Reviewed: [facility] [address] [place] [phone] Healthcare Economics Consultant: Eleno Maldonado M.D. Specimen Inquiry Name: Nikky Gunter Age/Sex: 34/F : 1990 Unit#: [id number] Attend Dr: Celia De La Garza CNM Re10/13/24 Status: DEP REF Location: [facility] Disch: SPEC : [id number] ADY: 10/13/24 STATUS: COMP REQ : [id number] RECD: 10/13/24 [facility] DR: Celia De La Garza CNM COMP: 10/23/2457 ENTERED: 10/13/[address]: Barbi Ahmadi MD ORDERED: FSH, LH, Prol, Estrad Tot + Fr Test Result Flag Reference FSH 5.7 mIU/mL Reference Range Follicular Phase 2.5-10.2 Mid-cycle Peak 3.1-17.7 Luteal Phase 1.5- 9.1 Postmenopausal 23.0-116.3 THIS TEST WAS PERFORMED AT: [facility] [address] [place] [phone] GRECIA WILKS MD LH 4.4 mIU/mL Reference Range Follicular Phase 1.9-12.5 Mid-Cycle Peak 8.7-76.3 Luteal Phase 0.5-16.9 Postmenopausal 10.0-54.7 THIS TEST WAS PERFORMED AT: [facility] [address] [place] [phone] GRECIA WILKS MD Prolactin 11.9 ng/mL Reference Range Females Non- 3.0-30.0 10.0-209.0 Postmenopausal 2.0-20.0 THIS TEST WAS PERFORMED AT: [facility] [address] [place] [phone] GRECIA WILKS MD Estradiol Free 1.21 pg/mL Female Reference Ranges for Estradiol, Free (pg/mL): Follicular Stage: 0.43-5.03 Luteal Stage: 0.40-5.55 Postmenopausal: < or = 0.38 Estradiol 61 pg/mL Female Reference Ranges for Estradiol, Ultrasensitive (pg/mL): Follicular Phase: 39-375 Luteal Phase: 48-440 Postmenopausal Phase: < or = 10 This test was developed and its analytical performance characteristics have been determined by [employer]. It has not been cleared or approved by FDA. This assay has been validated pursuant to the CLIA regulations and is used for clinical purposes. THIS TEST WAS PERFORMED AT: [employer]/[facility] [address] [place] [address] WIL RICH MD,PHD,DESTINY END OF REPORT [facility] [address] [place] [phone] Healthcare Economics Consultant: Eleno Maldonado M.D. Specimen Inquiry Name: Nikky Gunter Age/Sex: 34/F : 1990 Unit#: [id number] Attend Dr: Celia De La Garza CNM Re10/13/24 Status: [facility]P [facility] Disch: SPEC : [id number] ADY: 10/13/24 STATUS: COMP REQ : [id number] RECD: 10/13/[address]: Celia De La Garza CNM COMP: 10/13/24 ENTERED: 10/13/[address]: Barbi Ahmadi MD ORDERED: TSH Test Result Flag Reference TSH 3rd Gen. 0.77 0.32-4.0 uIU/mL TSH 3rd Generation ([facility]) END OF REPORT Assessment & Plan Assessment & Plan (1) Hot flashes: Code(s): R23.2 - Flushing (2) Encounter to discuss test results: Code(s): Z71.2 - Person consulting for explanation of examination or test findings Plan Discussed: Lab results-and normal ranges. Monitor menstrual cycles, report any unscheduled bleeding, bleeding episodes <24 days apart or heavy/prolonged menstrual bleeding. Call the office for a follow up for any concerns. Keep annual exam appointment as scheduled. Follow up with PCP for workup due to hot flashes. Reviewed common foods that can be triggers and to try avoiding. The patient expressed understanding and agreement with the plan of care. All of her questions and concerns were addressed to the best of my ability. This note is constructed using voice recognition software. While every effort has been made to ensure accuracy, bander errors may have been included. Coding Level of Care Code Tele Est Pt Level 3 (01818) Diagnoses Hot flashes R23.2 Encounter to discuss test results Z71.2
--- OUTSIDE RECORDS SUMMARY | 2024-12-06 07:58 | XMS_ITS | Encounter Summary ---
Author Organization [employer] Address [address] [place] [address] Care Team Providers Care Toddler Caregiver Name Role Phone Barbi Ahmadi MD Primary Care Provider + Reason for Visit * Reason Comments Med Refill Encounter Details Date Type Department Care Team (Late st Contact Info) Description 07/03/2024 Refill [facility] MED[facility] [address] [place], [place] [phone] Waqas Chen FNP Anxiety and depression Social [...] documented as of this encounter Care Teams Toddler Caregiver Relationship Specialty Start Date End Date Barbi Ahmadi MD [address] [place] [address] PCP - General Internal Medicine 07/01/24 documented as of this encounter
--- OUTSIDE RECORDS SUMMARY | 2024-12-06 07:58 | XMS_ITS | Encounter Summary ---
Author Organization [employer] Address [address] [place] [address] Care Team Providers Care Loan Collector Name Role Phone Barbi Ahmadi MD Primary Care Provider + Reason for Visit * Reason Comments Acupuncture Encounter Details Date Type Department Care Team ([facility] st Contact Info) Description 11/15/2024 9:15 AM EST Office Visit [facility] [address] [place], [place] [phone] Patricia Garcia MD [address] [place], [place] [phone] Fibromyalgia (Primary Dx); Anxiety and depression Social [...] documented as of this encounter Care Teams Loan Collector Relationship Specialty Start Date End Date Barbi Ahmadi MD [address] [place] [phone] PCP - General Internal Medicine 07/01/24 documented as of this encounter
--- OUTSIDE RECORDS SUMMARY | 2024-12-06 07:58 | XMS_ITS | Clinical Summary ---
Author Organization [employer] Address [address] [facility] 7t [place] [address] Care Team Providers Care Manager Telecom Name Role Phone Barbi Ahmadi MD Primary [...] g 06/23/20 23 Active oxymetazoline (Afrin Nasal [place]) 0.05 % nasal spray Administer 2 sprays [...] or Lyrica in the future. 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 Any issues or concerns, call [facility]. All her questions were answered and I [...] DEPARTMENT Provider, Generic External Data 11/16/[address] [address] Barbi Ahmadi MD Nurse Triage 11/15/2024 9:15 AM EST Office Visit [address] [address] Patricia Garcia MD Fibromyalgia (Primary Dx); Anxiety and depression 11/15/2024 Travel 11/04/[address] [address] Barbi Ahmadi MD December10/21/2024 9:15 AM EST Office Visit [address] [address] Barbi Ahmadi MD Cervical paraspinal muscle spasm (Primary Dx); Fibromyalgia; Anxiety and depression; Migraine with aura and without status migrainosus, not intractable 10/21/2024 Refill [facility] [address] [place] [phone] [place] [facility] Furuncle of buttock 10/21/2024 Refill [facility] [address] [place] [address] Carito Edwards FNP 10/21/2024 Travel 10/20/[address] [address] Lisa Barron MA Chart prep 10/12/2024 Patient Outreach [address] [phone] Barbi Ahmadi MD Pre-visit Planning ([facility] screening completed on 04/04/2024) from Last 3 [...] EST Narrative 11/28/2024 1:49 PM EST ? [facility] ?[address] ?[place] [address] ? CT Scan Report ? Signed ? Patient: Etienne Silva,Nikky J ?MR#: [id number] ?? [id number] ? : 1990 ?Acct:[id number] ? Age/Sex: 34 / F ?ADM Date: 11/28/24 ? Loc: HO.ED ? Attending Dr: ? Ordering Physician: Maria Harris ?? Date of Service: 11/28/24 ?? Procedure(s): CT head/brain wo IV con ?? Accession Number(s): [id number] ? cc: Barbi Ahmadi MD; Maria Harris ? Report Number: ?? [id number]: Total DLP = ??714.00 mGy-cm ?? EXAMINATION: [...] DD/ 1238 ? TD/TT: 11/28/24 1321 ? Records Custodian: MSM ? Procedure Note Donotuseinterpreter, Image - 11/28/[address] [address] [address] Scan Report Signed Patient: Nikky Gunter JMR#: [id number] : 1990Acct:[id number] Age/Sex: 34 / FADM Date: 11/28/24 Loc: HO.ED Attending Dr: Ordering Physician: Maria Harris Date of Service: 11/28/24 Procedure(s): CT head/brain wo IV con Accession Number(s): [id number] cc: Barbi Ahmadi MD; Maria Harris Report Number: [id number]: Total DLP = 714.00 mGy-cm EXAMINATION: CT [...] 11/28/24 1346 DD/ 1238 TD/TT: 11/28/24 1321 Records Custodian: MJ [facility] External Provider IMG CT PROCEDURES Final Result * (ABNORMAL) SARS-CoV-2 RNA, Influenza A/B, and RSV RNA, Ql NAAT (11/28/2024 12:02 PM EST) Only the most recent of2 resultswithin the time period is included. Influenza A PCR NEGATIVE Negative [facility] Influenza B PCR NEGATIVE Negative [facility] Resp Syncy Virus RNA Qual PCR POSITIVE(A) Negative [facility] SARS COV2 PCR NEGATIVE Negative [facility] Comment:All test results mus t be [...] use by authorized laboratories.Testing performed on the [employer] GeneXpert utilizingreal-time RT-PCR.All SARS CoV2 and positive influenza A/B results arereported to [facility]. 11/28/2024 12:0 2 PM EST 11/28/2024 12:07 PM EST Generic External Data Provider LAB MICROBIOLOGY - GENERAL ORDERABLES Final Result [facility] [address] [place] [phone] * (ABNORMAL) CBC auto differential (11/28/2024 12:02 PM EST) White Blood Count 9.8 4.8 - 10.8 X10*3/uL [facility] Red Blood Count 4.62 4.20 - 5.50 X10*6/uL [facility] Hemoglobin 13.1 12.0 - 16.0 g/dl [facility] Hematocrit 39.3 37.0 - 47.0 % [facility] Mean Corpuscular Volume 85.1 80.0 - 98.0 fL [facility] Mean Corpuscular Hemoglobin 28.4 27.0 - 33.0 pg [facility] Mean Corpuscular HGB Conc 33.3 31.0 - 35.0 g/dl [facility] Red Cell Distribution Width 13.2 11.0 - 16.0 % [facility] Platelet Count 247 160 - 400 X10*3/uL [facility] Mean Platelet Volume 9.7 9.4 - 12.3 fL [facility] Neutrophils Percent Auto 69.7 45 - 73 % [facility] Imm Gran Pct Auto 0.4 0.0 - 0.4 % [facility] Lymphocytes Percent Auto 21.2 20 - 40 % [facility] Monocytes Percent Auto 7.8 2 - 11 % [facility] Eosinophils Percent Auto 0.4 0 - 4 % [facility] Basophils Percent Auto 0.5 0 - 2 % [facility] NRBC Pct Auto 0.0 0.0 - 0.2 /100WBC [facility] Neutrophils Absolute Auto 6.8 2.0 - 8.3 x10*3/uL [facility] Imm Gran Abs Auto 0.04(H) 0.00 - 0.03 X10*3/uL [facility] Lymphocytes Absolute Auto 2.1 1.2 - 4.9 X10*3/uL [facility] Monocytes Absolute Auto 0.8 0.1 - 1.2 X10*3/uL [facility] Eosinophils Absolute Auto 0.0 0.0 - 0.4 X10*3/uL [facility] Basophils Absolute Auto 0.1 0.0 - 0.2 X10*3/uL [facility] NRBC Abs Auto 0.000 0.0 - 0.012 X10*3/uL [facility] 11/28/2024 12:0 2 PM EST 11/28/2024 12:06 PM EST Generic External Data Provider LAB BLOOD ORDERAB LES Final Result Performing Organization Address [facility]/ZIP Co de Phone Number [facility] [address] [place] [phone] * hCG, Total, Quantitative (11/28/2024 12:02 PM EST) HCG Quantitative <2 mIU/mL [facility] Comment:Weeks post LMP Appro ximate hCG(Last Menstrual Period) Range (mIU/ml)3 - 4 weeks 9 - 1304 - 5 weeks 75 - 2,6005 - 6 weeks 850 - 20,8006 - 7 weeks 4000 - 100,2007 - 12 weeks 11,500 - 289,03625 - 16 weeks 18,300 - 137,74160 - 29 weeks (2nd trimester) 1,400 - 53,71437 - 41 weeks (3rd trimester) 940 - [...] ORDERAB LES Final Result Performing Organization Address [facility] Co de Phone Number [facility] [address] [place] [phone] * Magnesium (11/28/2024 12:02 PM EST) Magnesium 2.1 1.6 - 2.6 mg/dL [facility] 11/28/2024 12:0 2 PM EST 11/28/2024 12:06 PM EST us Generic External Data Provider LAB BLOOD ORDERAB LES Final Result [facility] [address] [place] [phone] * (ABNORMAL) Comprehensive Metabolic Panel (11/28/2024 12:02 PM EST) Sodium 138 135 - 145 mmol/L [facility] Potassium 3.5 3.3 - 5.1 mmol/L [facility] Chloride 111(H) 96 - 108 mmol/L [facility] Carbon Dioxide 23 22 - 29 mmol/L [facility] Anion Gap 8(L) 12 - 20 [facility] Urea Nitrogen (BUN) 7(L) 9 - 16 mg/dL [facility] Creatinine, Serum 0.63 0.5 - 1.4 mg/dL [facility] Creatinine Clr Calc Pharmacy 134.6 [facility] Comment:Provided height and weight: 170.18 cm,77.111 kg.eGFR (calculated from the MDRD study equation) and eCrCl(calculated from the Cockcroft-Gault equation) are based ondifferent parameters and may not yield comparable results.If eCrCl result is absurd, please check patient'sheight/weight. Estimated Glomerular Filt Rate >60 [facility] Comment:Chronic Kidney Disea se: Estimated GFR < 60 mL/min/1.17p7Ntiypp Kidney Disease: Estimated GFR < 15 mL/min/1.73m2 Glucose 86 60 - 115 mg/dL [facility] Calcium 9.5 8.4 - 10.2 mg/dL [facility] Bilirubin, Total 0.4 0.0 - 1.0 mg/dL [facility] Aspartate Amino Transferase 19 5 - 31 U/L [facility] Alanine Aminotransferase 14 0 - 31 U/L [facility] Total Protein 7.7 6.5 - 8.0 g/dL [facility] Albumin Level 4.4 3.5 - 5.0 g/dL [facility] Alkaline Phosphatase 81 39 - 117 U/L [facility] 11/28/2024 12:0 2 PM EST 11/28/2024 12:06 PM EST us Generic External Data Provider LAB BLOOD ORDERAB LES Final Result [facility] [address] [place] [phone] * XR Chest 2 Views (11/19/2024 4:13 PM EST) Anatomical Region Laterality Modality Chest Radiographic Lamar ging 11/19/2024 4:13 PM EST Narrative 11/19/2024 4:16 PM EST ? [facility] ?[address] ?[place] [address] ?XRay Report ? Signed ? Patient: Lowell SilvaNikky J ?MR#: [id number] ?? [id number] ? : 1990 ?Acct:[id number] ? Age/Sex: 34 / F ?ADM Date: 11/19/24 ? Loc: HO.ED ? Attending Dr: ? Ordering Physician: Neris Doan CNP ?? Date of Service: 11/19/24 ?? Procedure(s): XR chest 2V ?? Accession Number(s): [id number] ? cc: Neris Doan CNP; Barbi Ahmadi [...] 11/19/245 ? DD/ ? TD/TT: 11/19/243 ? Records Custodian: ? Procedure Note Donotbettieinterpreter, Image - 11/19/[address] [address] XRay Report Signed Patient: Nikky Gunter JMR#: [id number] : 1990Acct:[id number] Age/Sex: 34 / FADM Date: 11/19/24 Loc: HO.ED Attending Dr: Ordering Physician: Neris Doan CNP Date of Service: 11/19/24 Procedure(s): XR chest 2V Accession Number(s): [id number] cc: Neris Doan CNP; Barbi Ahmadi MD [...] in OV> 11/19/241614 DD/ 12 TD/TT: 11/19/241612 Records Custodian: [facility] External Provider IMG XR PROCEDURES Edited Result - Final * (ABNORMAL) Drug Monitoring, Panel 1, Screen, Urine (11/15/2024 8:51 AM EST) Opiate Screen Urine Not Detected Not Detect [facility] Comment:Opiate cut-off is 30 0 ng/mL.Positive results are unconfirmed and should not be used fornon-medical purposes. Barbiturates, Urine Not Detected Not Detect [facility] Comment:Barbiturate cut-off is 200 ng/mL.Positive results are unconfirmed and should not be used fornon-medical purposes. Phencyclidine Screen Urine Not Detected Not Detect [facility] Comment:Phencyclidine cut-of f is 25 ng/mL.Positive results are unconfirmed and should not be used fornon-medical purposes. Amphetamine Screen Urine Not Detected Not Detect [facility] Comment:Amphetamine cut-off is 1000 ng/mL.Positive results are unconfirmed and should not be used fornon-medical purposes. Benzodiazepines Screen Urine Not Detected Not Detect [facility] Comment:Benzodiazepine cut-o ff is 200 ng/mL.Positive results are unconfirmed and should not be used fornon-medical purposes. Cocaine Screen Urine Not Detected Not Detect [facility] Comment:Cocaine cut-off is 3 00 ng/mL.Positive results are unconfirmed and should not be used fornon-medical purposes. Cannabinoid Screen Urine POSITIVE(A) Not Detect [facility] Comment:Cannabinoid cut-off is 50 ng/mL.Positive results are unconfirmed and should not be used fornon-medical purposes. Methadone Screen, Urine Not Detected Not Detect ng/mL [facility] Comment:Methadone cut-off is 300 ng/mL.Positive results are unconfirmed and should not be used fornon-medical purposes. FENTANYL URINE Not Detected Not Detect [facility] Comment:Fentanyl cut-off is 1 ng/mL.Positive results are unconfirmed and should not be used fornon-medical purposes. Oxycodone Urine Screen Not Detected Not Detect ng/mL [facility] Comment:Oxycodone cut-off is 100 ng/mL.Positive results are unconfirmed and should not be used fornon-medical purposes. Buprenorphine Screen Not Detected Not Detect ng/mL [facility] Comment:Buprenorphine cut-of f is 5 ng/mL.Positive results are unconfirmed and should not be used fornon-medical purposes. Urine (Urine, Random) 11/15/2024 8:51 AM EST 11/15/2024 11:23 AM EST Hubert Rodriguez [facility] URINE ORDERABLES Final Re sult [facility] [address] [place] [phone] [phone] * Estradiol, Free (10/13/2024 8:04 AM EST) Estradiol, Free 1.21 pg/mL [facility] Comment:Female Reference Ran ges for Estradiol, Free (pg/mL): Follicular Stage: 0.43-5.03 Luteal Stage: 0.40-5.55 Postmenopausal: < or = 0.38 Estradiol, Ultrasensitive, LC/MS 61 pg/mL [facility] Comment:Female Reference Ran ges for Estradiol, Ultrasensitive (pg/mL): Follicular Phase: 39-375 Luteal Phase: 48-440 Postmenopausal Phase: < or = 10This test was developed and its analytical performancecharacteristics have been determined by [employer].It has not been cleared or approved by FDA. This assay hasbeen validated pursuant to the CLIA regulations and is usedfor clinical purposes.THIS TEST WAS PERFORMED AT:[employer] [id number] [facility] [place] [address]JLRGAWIL RICH MD,PHD,DESTINY 10/13/2024 8:04 AM EST 10/13/2024 8:04 AM EST Generic External Data Provider LAB BLOOD ORDERAB LES Final Result [facility] [address] [place] [phone] * Prolactin (10/13/2024 8:04 AM EST) Prolactin 11.9 ng/mL [facility] Comment:Reference Range Fema les Non- 3.0-30.0 10.0-209.0 Postmenopausal 2.0-20.0THIS TEST WAS PERFORMED AT:[employer] [address] [id number] WILKS MD 10/13/2024 8:04 AM EST 10/13/2024 8:04 AM EST us Generic External Data Provider LAB BLOOD ORDERAB LES Final Result Performing Organization Address [facility]/ZIP Co de Phone Number [facility] [address] [place] [phone] * TSH (10/13/2024 8:04 AM EST) Thyroid Stimulating Hormone 0.77 0.32 - 4.0 uIU/mL [facility] Comment:TSH 3rd Generation ( [facility]) 10/13/2024 8:04 AM EST 10/13/2024 8:04 AM EST Generic External Data Provider LAB BLOOD ORDERAB LES Final Result Performing Organization Address [facility] de Phone Number [facility] [address] [place] [phone] * LH (10/13/2024 8:04 AM EST) Lutenizing Hormone 4.4 mIU/mL [facility] Comment:Reference Range Foll icular Phase 1.9-12.5 Mid-Cycle Peak 8.7-76.3 Luteal Phase 0.5-16.9 Postmenopausal 10.0-54.7THIS TEST WAS PERFORMED AT:[employer] [address] [id number] WILKS MD 10/13/2024 8:04 AM EST 10/13/2024 8:04 AM EST us Generic External Data Provider LAB BLOOD ORDERAB LES Final Result Performing Organization Address [facility] Co de Phone Number [facility] [address] [place] [phone] * FSH (10/13/2024 8:04 AM EST) Follicle Stimulating Hormone 5.7 mIU/mL [facility] Comment:Reference Range Foll icular Phase 2.5-10.2 Mid-cycle Peak 3.1-17.7 Luteal Phase 1.5- 9.1 Postmenopausal 23.0-116.3THIS TEST WAS PERFORMED AT:[employer] [place] [id number] WILKS MD 10/13/2024 8:04 AM EST 10/13/2024 8:04 AM EST Generic External Data Provider LAB BLOOD ORDERAB LES Final Result Performing Organization Address [facility] Co de Phone Number [facility] [address] [place] [phone] * Hepatitis C Antibody with Reflex to HCV, RNA, Quantitative, Real-Time PCR (01/08/2024 11:05 AM EST) Hepatitis C Antibody Nonreactive Nonreactive [facility] Comment:Antibodies to HCV no t detected; does not exclude early acuteHCV infection. 01/08/2024 11:0 5 AM EST 01/08/2024 11:05 AM EST Generic External Data Provider LAB BLOOD ORDERAB LES Final Result Performing Organization Address [facility] de Phone Number [facility] [address] [place] [phone] * HIV-1/2 Antigen and Antibodies, Fourth Generation, with Reflexes (01/08/2024 11:05 AM EST) HIV AB/AG Nonreactive Nonreactive [facility] Comment:HIV-1 p24 Ag and/or HIV-1/HIV-2 Ab not detected.A test result that is nonreactive does not exclude thepossibility of exposure to or infection with HIV-1 and/orHIV-2. Nonreactive results in this assay for individualswith prior exposure to HIV-1 and/or HIV-2 may be due toantigen and antibody levels that are below the limit ofdetection of this assay.The [employer] HIV Ag/Ab Combo assay result andsupplemental assay results should be interpreted inconjunction with the patient's clinical presentation,history and other laboratory results. If the results areinconsistent with clinical evidence, additional testing issuggested to confirm the result. 01/08/2024 11:0 5 AM EST 01/08/2024 11:05 AM EST us Generic External Data Provider LAB BLOOD ORDERAB LES Final Result Performing Organization Address City/[facility]/ZIP Co de Phone Number [facility] [address] [place] [phone] * HPV E6/E7 RFLX OLGA 16 18/45 (08/27/2020 2:55 PM EDT) HPV 16 RNA [facility] HPV 18/45 RNA [facility] HPV E6 E7 ADD [facility] HPV mRNA E6/E7 Not Detected Not Detected [facility] Comment: This test was performed using the APTIMA HPV Assay ([employer] This assay detects E6/E7 viral messenger RNA (mRNA) from 14 high-risk HPV types (16,18,31,33,35,39,45,51,52,56,58,59,66,68). The analytical performance characteristics of this assay have been determined by [employer]. The modifications have not been cleared or approved by the FDA. This assay has been validated pursuant to the CLIA regulations and is used for clinical purposes. THIS TEST WAS PERFORMED AT: [employer] [address] [place] [address] [address] [place], [place] ??[phone] GRECIA WILKS MD 08/27/2020 2:55 PM EDT us Historical Provider HISTORICAL/NON ORDERABLE LABS Final Result Performing Organization Address City/[facility]/ZIP Co de Phone Number [facility] [address] * Hm Pap Smear (08/27/2020) HM Pap smear performed us Historical Provider HEALTH MAINTENANCE Final Result from Last 3 Months or Most Recently Relevant to Health Maintenance Insurance [facility] C3 Care Teams Manager Telecom Relationship Specialty Start Date End Date Barbi Ahmadi MD [address] [place] [phone] PCP - General Internal Medicine 07/01/24
--- OUTSIDE RECORDS SUMMARY | 2024-12-06 07:58 | XMS_ITS | Encounter Summary ---
Author Organization [facility] Address [address] [facility] 7t [place] [address] Care Team Providers Care Security Installation Sales Technician Name Role Phone Vivian Contreras MD Primary Care Provider Carito Munroe Primary Care Provider [phone] Barbi Ahmadi MD Primary Care Provider + Encounter Details Date Type Department Care Team (Late st Contact Info) Description 09/23/2022 Abstract [facility] [address] [place], [place] [phone] Provider, MD Valdo Social History Tobacco Use [...] on filedocumented in this encounter Care Teams Security Installation Sales Technician Relationship Specialty Start Date End Date Vivian Contreras MD PCP - General Family Medicine 09/22/19 12/15/22 Carito Edwards FNP [address] [place] [address] PCP - General Family Medicine 12/16/22 06/30/24 Barbi Ahmadi MD [address] [place] [address] PCP - General Internal Medicine 07/01/24 documented as of this encounter
--- OUTSIDE RECORDS SUMMARY | 2024-12-06 07:58 | XMS_ITS | Encounter Summary ---
Author Organization [facility] Address [address] [facility] [address]t [place] [address] Care Team Providers Care Asbestos Shingle Roofer Name Role Phone Carito Edwards Primary Care Provider [phone] Barbi Ahmadi MD Primary Care Provider + Encounter Details Date Type Department Care Team (Late st Contact Info) Description 05/29/2023 Orders Only [facility] [address] [place] [address] Carito Edwards FNP [address] [place] [address] Bacterial vaginitis (Primary Dx) Social History Tobacco [...] documented as of this encounter Care Teams Asbestos Shingle Roofer Relationship Specialty Start Date End Date Carito Edwards FNP [address] [place] [address] PCP - General Family Medicine 12/16/22 06/30/24 Barbi Ahmadi MD [address] [place] [address] PCP - General Internal Medicine 07/01/24 documented as of this encounter
--- OUTSIDE RECORDS SUMMARY | 2024-12-06 07:58 | XMS_ITS | Encounter Summary ---
Author Organization [employer] Address [address] [place] [address] Care Team Providers Care Artificial Teeth Inspector Name Role Phone Barbi Ahmadi MD Primary [...] documented as of this encounter Care Teams Artificial Teeth Inspector Relationship Specialty Start Date End Date Barbi Ahmadi MD [address] [place] [phone] PCP - General Internal Medicine 07/01/24 documented as of this encounter
--- OUTSIDE RECORDS SUMMARY | 2024-12-06 07:58 | XMS_ITS | Encounter Summary ---
Author Organization [employer] Address [address] [facility] [address] [place] [address] Care Team Providers Care Laboratory Equipment Cleaner Name Role Phone Barbi Ahmadi MD Primary Care Provider + Reason for Visit * Reason Comments Med Refill Encounter Details Date Type Department Care Team ([facility] st Contact Info) Description 10/21/2024 Refill [facility] [address] [place], [place] [phone] [facility] [address] [place], [place] [phone] Furuncle of buttock Social History Tobacco Use [...] documented as of this encounter Care Teams Laboratory Equipment Cleaner Relationship Specialty Start Date End Date Barbi Ahmadi MD [address] [place] [phone] PCP - General Internal Medicine 07/01/24 documented as of this encounter
--- OUTSIDE RECORDS SUMMARY | 2024-12-06 07:58 | XMS_ITS | Encounter Summary ---
Author Organization [facility] [facility] Address [address] 7t [place] [address] Care Team Providers Care Pillowcase Cleaner Name Role Phone Barbi Ahmadi MD [...] EST Narrative 11/28/2024 1:49 PM EST ? [facility] ?[address] ?[place] [address] ? CT Scan Report ? Signed ? Patient: Lowell Silva,Nikky J ?MR#: [id number] ?? [id number] ? : 1990 ?Acct:[id number] ? Age/Sex: 34 / F ?ADM Date: 01/27/25 ? Loc: HO.ED ? Attending Dr: ? Ordering Physician: Maria Harris ?? Date of Service: 11/28/24 ?? Procedure(s): CT head/brain wo IV con ?? Accession Number(s): [id number] ? cc: Barbi Ahmadi MD; Maria Harris ? Report Number: ?? [id number]: Total DLP = ??714.00 mGy-cm ?? EXAMINATION: [...] DD/ 1238 ? TD/TT: 11/28/24 1321 ? Size Roller Operator: MSM ? Procedure Note Thierno, Image - 11/28/[address] [address] [address] Scan Report Signed Patient: Nikky Gunter JMR#: [id number] : 1990Acct:[id number] Age/Sex: 34 / FADM Date: 11/28/24 Loc: HO.ED Attending Dr: Ordering Physician: Maria Harris Date of Service: 11/28/24 Procedure(s): CT head/brain wo IV con Accession Number(s): [id number] cc: Barbi Ahmadi MD; Maria Harris Report Number: [id number]: Total DLP = 714.00 mGy-cm EXAMINATION: CT [...] by: Filemon Quesada MD 11/28/2024 01:46 PM [facility] Dictated By: Filemon Quesada MD Signed By: <Electronically signed by Filemon Quesada MD in OV> 11/28/24 1346 DD/ 1238 TD/TT: 11/28/24 1321 Size Roller Operator: [facility] External Provider IM CT PROCEDURES Final Result * (ABNORMAL) SARS-CoV-2 RNA, Influenza A/B, and RSV RNA, Ql NAAT (11/28/2024 12:02 PM EST) Pathologist [facility] Influenza A PCR NEGATIVE Negative [facility] Influenza B PCR NEGATIVE Negative [facility] Resp Syncy Virus RNA Qual PCR POSITIVE(A) Negative [facility] SARS COV2 PCR NEGATIVE Negative [facility] Comment:All test results mus t be [...] use by authorized laboratories.Testing performed on the [employer] GeneXpert utilizingreal-time RT-PCR.All SARS CoV2 and positive influenza A/B results arereported to [facility]. 11/28/2024 12:0 2 PM EST 11/28/2024 12:07 PM EST us Generic External Data Provider LAB MICROBIOLOGY - GENERAL ORDERABLES Final Result [facility] [address] [place] [address] [phone] * hCG, Total, Quantitative (11/28/2024 12:02 PM EST) Pathologist [facility] HCG Quantitative <2 mIU/mL [facility] Comment:Weeks post LMP Appro ximate hCG(Last Menstrual Period) Range (mIU/ml)3 - 4 weeks 9 - 1304 - 5 weeks 75 - 2,6005 - 6 weeks 850 - 20,8006 - 7 weeks 4000 - 100,2007 - 12 weeks 11,500 - 289,91688 - 16 weeks 18,300 - 137,36848 - 29 weeks (2nd trimester) 1,400 - 53,07660 - 41 weeks (3rd trimester) 940 - [...] ORDERAB LES Final Result Performing Organization Address [facility] Co de Phone Number [facility] [address] [place] [phone] * Magnesium (11/28/2024 12:02 PM EST) Pathologist [facility] Magnesium 2.1 1.6 - 2.6 mg/dL [facility] 11/28/2024 12:0 2 PM EST 11/28/2024 12:06 PM EST [employer] External Data Provider LAB BLOOD ORDERAB LES Final Result Performing Organization Address [facility] de Phone Number [facility] [address] [place] [phone] * (ABNORMAL) Comprehensive Metabolic Panel (11/28/2024 12:02 PM EST) Sodium 138 135 - 145 mmol/L [facility] Potassium 3.5 3.3 - 5.1 mmol/L [facility] Chloride 111(H) 96 - 108 mmol/L [facility] Carbon Dioxide 23 22 - 29 mmol/L [facility] Anion Gap 8(L) 12 - 20 [facility] Urea Nitrogen (BUN) 7(L) 9 - 16 mg/dL [facility] Creatinine, Serum 0.63 0.5 - 1.4 mg/dL [facility] Creatinine Clr Calc Pharmacy 134.6 [facility] Comment:Provided height and weight: 170.18 cm,77.111 kg.eGFR (calculated from the MDRD study equation) and eCrCl(calculated from the Cockcroft-Gault equation) are based ondifferent parameters and may not yield comparable results.If eCrCl result is absurd, please check patient'sheight/weight. Estimated Glomerular Filt Rate >60 [facility] Comment:Chronic Kidney Disea se: Estimated GFR < 60 mL/min/1.87m4Inmqwi Kidney Disease: Estimated GFR < 15 mL/min/1.73m2 Glucose 86 60 - 115 mg/dL [facility] Calcium 9.5 8.4 - 10.2 mg/dL [facility] Bilirubin, Total 0.4 0.0 - 1.0 mg/dL [facility] Aspartate Amino Transferase 19 5 - 31 U/L [facility] Alanine Aminotransferase 14 0 - 31 U/L [facility] Total Protein 7.7 6.5 - 8.0 g/dL [facility] Albumin Level 4.4 3.5 - 5.0 g/dL [facility] Alkaline Phosphatase 81 39 - 117 U/L [facility] 11/28/2024 12:0 2 PM EST 11/28/2024 12:06 PM EST us Generic External Data Provider LAB BLOOD ORDERAB LES Final Result [facility] [address] [place] [phone] * (ABNORMAL) CBC auto differential (11/28/2024 12:02 PM EST) White Blood Count 9.8 4.8 - 10.8 X10*3/uL [facility] Red Blood Count 4.62 4.20 - 5.50 X10*6/uL [facility] Hemoglobin 13.1 12.0 - 16.0 g/dl [facility] Hematocrit 39.3 37.0 - 47.0 % [facility] Mean Corpuscular Volume 85.1 80.0 - 98.0 fL [facility] Mean Corpuscular Hemoglobin 28.4 27.0 - 33.0 pg [facility] Mean Corpuscular HGB Conc 33.3 31.0 - 35.0 g/dl [facility] Red Cell Distribution Width 13.2 11.0 - 16.0 % [facility] Platelet Count 247 160 - 400 X10*3/uL [facility] Mean Platelet Volume 9.7 9.4 - 12.3 fL [facility] Neutrophils Percent Auto 69.7 45 - 73 % [facility] Imm Gran Pct Auto 0.4 0.0 - 0.4 % [facility] Lymphocytes Percent Auto 21.2 20 - 40 % [facility] Monocytes Percent Auto 7.8 2 - 11 % [facility] Eosinophils Percent Auto 0.4 0 - 4 % [facility] Basophils Percent Auto 0.5 0 - 2 % [facility] NRBC Pct Auto 0.0 0.0 - 0.2 /100WBC [facility] Neutrophils Absolute Auto 6.8 2.0 - 8.3 x10*3/uL [facility] Imm Gran Abs Auto 0.04(H) 0.00 - 0.03 X10*3/uL [facility] Lymphocytes Absolute Auto 2.1 1.2 - 4.9 X10*3/uL [facility] Monocytes Absolute Auto 0.8 0.1 - 1.2 X10*3/uL [facility] Eosinophils Absolute Auto 0.0 0.0 - 0.4 X10*3/uL [facility] Basophils Absolute Auto 0.1 0.0 - 0.2 X10*3/uL [facility] NRBC Abs Auto 0.000 0.0 - 0.012 X10*3/uL [facility] 11/28/2024 12:0 2 PM EST 11/28/2024 12:06 PM EST us Generic External Data Provider LAB BLOOD ORDERAB LES Final Result [facility] [address] [place] [phone] documented in this encounter Visit Diagnoses Not on filedocumented in this encounter Additional Health Concerns Assessment Noted Time PHQ-9 Depression Total Score: 9 04/12/20 24 9:00 AM EDT documented as of this encounter Care Teams Pillowcase Cleaner Relationship Specialty Start Date End Date Barbi Ahmadi MD [address] [place] [phone] PCP - General Internal Medicine 07/01/24 documented as of this encounter
--- OUTSIDE RECORDS SUMMARY | 2024-12-06 07:58 | XMS_ITS | Encounter Summary ---
Author Organization [facility] [facility] Address [address] [place] [address] Care Team Providers Care Senior Nuclear Medicine Technologist Name Role Phone Barbi Ahmadi MD Primary [...] EST Narrative 11/19/2024 4:16 PM EST ? [facility] ?[address] ?[place] [address] ?XRay Report ? Signed ? Patient: Nikky Gunter ?MR#: [id number] ?? [id number] ? : 1990 ?Acct:[id number] ? Age/Sex: 34 / F ?ADM Date: 11/19/24 ? Loc: HO.ED ? Attending Dr: ? Ordering Physician: Neris Doan CNP ?? Date of Service: 11/19/24 ?? Procedure(s): XR chest 2V ?? Accession Number(s): [id number] ? cc: Neris Doan CNP; Barbi Ahmadi [...] ? DD/ ? TD/TT: 11/19/24 1613 ? Junior Linux Administrator: ? Procedure Note Thierno, Image - 11/19/[address] [address] XRay Report Signed Patient: Nikky Gunter JMR#: [id number] : 1990Acct:[id number] Age/Sex: 34 / FADM Date: 11/19/24 Loc: HO.ED Attending Dr: Ordering Physician: Neris Doan CNP Date of Service: 11/19/24 Procedure(s): XR chest 2V Accession Number(s): [id number] cc: Neris Doan CNP; Barbi Ahmadi MD [...] 11/19/24 1615 DD/ 1613 TD/TT: 11/19/24 1613 Junior Linux Administrator: [facility] External Provider IMG XR PROCEDURES Edited Result - Final * SARS-CoV-2 RNA, Influenza A/B, and RSV RNA, Ql NAAT (11/19/2024 1:56 PM EST) Influenza A PCR NEGATIVE Negative [facility] Influenza B PCR NEGATIVE Negative [facility] Resp Syncy Virus RNA Qual PCR NEGATIVE Negative [facility] SARS COV2 PCR NEGATIVE Negative [facility] Comment:All test results mus t [...] use by authorized laboratories.Testing performed on the [employer] GeneXpert utilizingreal-time RT-PCR.All SARS CoV2 and positive influenza A/B results arereported to [facility]. 11/19/2024 1:56 PM EST 11/19/2024 2:02 PM EST us Generic External Data Provider LAB MICROBIOLOGY - GENERAL ORDERABLES Final Result [facility] [address] [place] [phone] documented in this encounter Visit Diagnoses Not on filedocumented in this encounter Additional Health Concerns Assessment Noted Time PHQ-9 Depression Total Score: 9 04/12/20 24 9:00 AM EDT documented as of this encounter Care Teams Senior Nuclear Medicine Technologist Relationship Specialty Start Date End Date Barbi Ahmadi MD [address] [place] [address] PCP - General Internal Medicine 07/01/24 documented as of this encounter
--- OUTSIDE RECORDS SUMMARY | 2024-12-06 07:58 | XMS_ITS | Encounter Summary ---
Author Organization [employer] Address [address] [place] [address] Care Team Providers Care Automobile Mechanic Motor Name Role Phone Barbi Ahmadi MD Primary Care Provider + Reason for Visit * Reason Onset Date Comments Nurse Triage 11/16/2024 Encounter Details Date Type Department Care Team ([facility] st Contact Info) Description 11/16/2024 Telephone [facility] [address] [place], [place] [phone] Barbi Ahmadi MD [address] [place] [address] Nurse Triage Social History Tobacco Use Types [...] Reason: Getting worse Please contact pt at [phone]. documented in this encounter Plan of Treatment Not on file documented as of this encounter Visit Diagnoses Not on filedocumented in this encounter Additional Health Concerns Assessment Noted Time PHQ-9 Depression Total Score: 9 04/12/20 24 9:00 AM EDT documented as of this encounter Care Teams Automobile Mechanic Motor Relationship Specialty Start Date End Date Barbi Ahmadi MD [address] [place] [phone] PCP - General Internal Medicine 07/01/24 documented as of this encounter
== END 2024-12-06 10:20 | disposition home or self-care (01) ==
LOC: HO.HWS 07:57
PROVIDERS: PCP Internal Medicine; Visit Provider Advanced Practice Midwife
DX: R23.2 Flushing (principal); Z71.2 Person consulting for explanation of examination or test findings
CPT/HCPCS: 99213

== ENCOUNTER → 2024-12-06 07:57 | Outpatient (BNVA) | payer MEDICAID, SELFPAY | PROVIDERS: PCP Internal Medicine; Visit Provider Advanced Practice Midwife ==

== ENCOUNTER 2025-03-16 10:28 | Outpatient (REF) | payer MEDICAID, SELFPAY ==
--- OUTSIDE RECORDS SUMMARY | 2025-03-16 12:36 | XMS_ITS | Encounter Summary ---
Author Organization [employer] Address [address] [facility] [address] 7t [place] [address] Care Team Providers Care Baccarat Manager Name Role Phone Barbi Ahmadi MD Primary Care Provider + Reason for Visit * Reason Comments Med Refill Encounter Details Date Type Department Care Team (Late st Contact Info) Description 10/21/2024 Refill [facility] 230 [place], [place] [phone] [facility] 230 [place], [place] [phone] Furuncle of buttock Social History Tobacco Use [...] 10:30 AM EDT Office Visit [facility] MEDICINE [address] [place] [phone] Barbi Ahmadi MD [address] [place] [address] documented as of this encounter Visit Diagnoses Diagnosis Furuncle of buttock Carbuncle and furuncle of buttock documented in this encounter Additional Health Concerns Assessment Noted Time PHQ-9 Depression Total Score: 9 04/12/20 24 9:00 AM EDT documented as of this encounter Care Teams Baccarat Manager Relationship Specialty Start Date End Date Barbi Ahmadi MD [address] [place] [phone] PCP - General Internal Medicine 07/01/24 documented as of this encounter
--- OUTSIDE RECORDS SUMMARY | 2025-03-16 12:36 | XMS_ITS | Encounter Summary ---
Author Organization [employer] [facility] Address [address] [facility] [address] 7t [place] [address] Care Team Providers Care Forensic Identification Specialist Name Role Phone Barbi Ahmadi MD Primary Care Provider + Reason for Visit * Reason Onset Date Comments Nurse Triage 11/16/2024 Encounter Details Date Type Department Care Team ([facility] st Contact Info) Description 11/16/2024 Telephone [facility] MEDICINE [address] [place], [place] [phone] Barbi Ahmadi MD [address] [place], [place] [phone] Nurse Triage Social History Tobacco Use Types [...] Reason: Getting worse Please contact pt at [phone]. documented in this encounter Plan of Treatment Upcoming Encounters Date Type Department Care Team (Late st Contact Info) Description 06/26/2025 10:30 AM EDT Office Visit [facility] MEDICINE [address] [place] [phone] Barbi Ahmadi MD [address] [place], [place] [phone] documented as of this encounter Visit Diagnoses Not on filedocumented in this encounter Additional Health Concerns Assessment Noted Time PHQ-9 Depression Total Score: 9 04/12/20 24 9:00 AM EDT documented as of this encounter Care Teams Forensic Identification Specialist Relationship Specialty Start Date End Date Barbi Ahmadi MD [address] [place] [address] PCP - General Internal Medicine 07/01/24 documented as of this encounter
--- OUTSIDE RECORDS SUMMARY | 2025-03-16 12:36 | XMS_ITS | Encounter Summary ---
Author Organization [employer] Address [address] [facility] [address] 7t [place] [address] Care Team Providers Care Flight Test Shop Mechanic Name Role Phone Barbi Ahmadi MD Primary Care Provider + Reason for Visit * Reason Comments Med Refill Encounter Details Date Type Department Care Team (Late st Contact Info) Description 07/03/2024 Refill [facility] MEDICINE [address] [place], [place] [phone] Waqas Chen FNP Anxiety and depression Social [...] the past 12 months, has t he Cloakroom, gas, oil or water company threatened to [...] Description 06/26/2025 10:30 AM EDT Office Visit [facility] MEDICINE [address] [place] [address] Barbi Ahmadi MD [address] [place] [address] documented as of this encounter Visit Diagnoses Diagnosis Anxiety and depression documented in this encounter Additional Health Concerns Assessment Noted Time PHQ-9 Depression Total Score: 9 04/12/20 24 9:00 AM EDT documented as of this encounter Care Teams Flight Test Shop Mechanic Relationship Specialty Start Date End Date Barbi Ahmadi MD [address] [place] [address] PCP - General Internal Medicine 07/01/24 documented as of this encounter
--- OUTSIDE RECORDS SUMMARY | 2025-03-16 12:36 | XMS_ITS | Encounter Summary ---
Author Organization [employer] [facility] Address [address] [facility] 7t [place] [address] Care Team Providers Care Body Liner Name Role Phone Vivian Contreras MD Primary Care Provider Cairto Munroe Primary Care Provider [phone] Barbi Ahmadi MD Primary Care Provider + Encounter Details Date Type Department Care Team (Late st Contact Info) Description 09/23/2022 Abstract [facility] MEDICINE [address] [place] [address] [phone] ProviderValdo MD Social History Tobacco Use Types [...] Description 06/26/2025 10:30 AM EDT Office Visit [facility] MEDICINE [address] [place] [phone] Barbi Ahmadi MD [address] [place] [address] documented as of this encounter Procedures Procedure [...] on filedocumented in this encounter Care Teams Body Liner Relationship Specialty Start Date End Date Vivian Contreras MD PCP - General Family Medicine 09/22/19 12/15/22 Carito Edwards FNP [address] [place], [place] [phone] PCP - General Family Medicine 12/16/22 06/30/24 Barbi Ahmadi MD [address] [place] [address] PCP - General Internal Medicine 07/01/24 documented as of this encounter
--- OUTSIDE RECORDS SUMMARY | 2025-03-16 12:36 | XMS_ITS | Clinical Summary ---
Author Organization [employer] Address [address] [facility] 7t [place] [address] Care Team Providers Care Reduction Furnace Operator Name Role Phone Barbi Ahmadi MD Primary [...] g 06/23/20 23 Active oxymetazoline (Afrin Nasal [place]) 0.05 % nasal spray Administer 2 sprays [...] or Lyrica in the future. 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 Any issues or concerns, call [facility]. All her questions were answered and [...] Type Department Care Team Description 03/07/2025 Telephone [facility] MEDICINE [address] [place] [address] Barbi Ahmadi MD june01/13/2025 Population Health [facility] Department [address] [phone] Provider, Population Health Generic from [...] 10:30 AM EDT Office Visit [facility] MEDICINE [address] [facility] [place] [address] Barbi Ahmadi MD [address] [facility] [place] [address] Health Maintenance Due Date Last Done Comments [...] AM EST) Hepatitis C Antibody Nonreactive Nonreactive [facility] Comment:Antibodies to HCV no t detected; does not exclude early acuteHCV infection. 01/08/2024 11:0 5 AM EST 01/08/2024 11:05 AM EST us Generic External Data Provider LAB BLOOD ORDERAB LES Final Result [facility] [address] [place] [phone] * HIV-1/2 Antigen and Antibodies, Fourth Generation, with Reflexes (01/08/2024 11:05 AM EST) HIV AB/AG Nonreactive Nonreactive [facility] Comment:HIV-1 p24 Ag and/or HIV-1/HIV-2 Ab not detected.A test result that is nonreactive does not exclude thepossibility of exposure to or infection with HIV-1 and/orHIV-2. Nonreactive results in this assay for individualswith prior exposure to HIV-1 and/or HIV-2 may be due toantigen and antibody levels that are below the limit ofdetection of this assay.The [employer] HIV Ag/Ab Combo assay result andsupplemental assay results should be interpreted inconjunction with the patient's clinical presentation,history and other laboratory results. If the results areinconsistent with clinical evidence, additional testing issuggested to confirm the result. 01/08/2024 11:0 5 AM EST 01/08/2024 11:05 AM EST us Generic External Data Provider LAB BLOOD ORDERAB LES Final Result [facility] [address] [place] [phone] * HPV E6/E7 RFLX OLGA 16 18/45 (08/27/2020 2:55 PM EDT) HPV 16 RNA [facility] HPV 18/45 RNA [facility] HPV E6 E7 ADD [facility] HPV mRNA E6/E7 Not Detected Not Detected [facility] Comment: This test was performed using the APTIMA HPV Assay ([employer] This assay detects E6/E7 viral messenger RNA (mRNA) from 14 high-risk HPV types (16,18,31,33,35,39,45,51,52,56,58,59,66,68). The analytical performance characteristics of this assay have been determined by [employer]. The modifications have not been cleared or approved by the FDA. This assay has been validated pursuant to the CLIA regulations and is used for clinical purposes. THIS TEST WAS PERFORMED AT: [facility] [address] [place] [address],[address] [place], [place] ??[phone] GRECIA WILKS MD 08/27/2020 2:55 PM EDT Historical Provider HISTORICAL/NON ORDERABLE LABS Final Result [facility] [address] * Pap Smear (08/27/2020) Pap smear performed us Historical Provider HEALTH MAINTENANCE Final Result from Last 3 Months or Most Recently Relevant to Health Maintenance Insurance [employer] C3 Care Teams Reduction Furnace Operator Relationship Specialty Start Date End Date Barbi Ahmadi MD [address] [place] [phone] PCP - General Internal Medicine 07/01/24
--- OUTSIDE RECORDS SUMMARY | 2025-03-16 12:36 | XMS_ITS | Encounter Summary ---
Author Organization [employer] [facility] Address 75 [facility] 7t [place] [address] Care Team Providers Care Records Management Coordinator Name Role Phone Carito Edwards Primary Care Provider [phone] Barbi Ahmadi MD Primary Care Provider + Encounter Details Date Type Department Care Team ([facility] Contact Info) Description 05/29/2023 Orders Only [facility] MEDICINE [address] [place] [address] [phone] Carito Edwards FNP [address] [place] [address] [phone] Bacterial vaginitis (Primary Dx) Social History Tobacco [...] Description 06/26/2025 10:30 AM EDT Office Visit [facility] MEDICINE [address] [place] [phone] Barbi Ahmadi MD [address] [place] [address] [phone] documented as of this encounter Visit Diagnoses Diagnosis Bacterial vaginitis- Primary Unspecified vaginitis and vulvovaginitis documented in this encounter Additional Health Concerns Assessment Noted Time PHQ-9 Depression Total Score: 10 023 10:42 AM EDT documented as of this encounter Care Teams Records Management Coordinator Relationship Specialty Start Date End Date Carito Edwards FNP [address] [place] [address] PCP - General Family Medicine 12/16/22 06/30/24 Barbi Ahmadi MD [address] [place] [address] PCP - General Internal Medicine 07/01/24 documented as of this encounter
[2025-03-16 13:06] LABS: Bacterial Vaginosis PCR POSITIVE (Negative); Candida Group PCR DETECTED (Not Detect); Candida glab krusei PCR NOT DETECTED (Not Detect); Trichomonas vaginalis PCR NOT DETECTED (Not Detect)
[2025-03-16 13:39] LABS: CT PCR NOT DETECTED (Not Detect.); NG PCR NOT DETECTED (Not Detect.)
== END 2025-03-16 10:29 | disposition home or self-care (01) ==
LOC: HO.LAB 10:28
PROVIDERS: PCP Internal Medicine; Visit Provider Advanced Practice Midwife
DX: Z01.419 Encounter for gynecological examination (general) (routine) without abnormal findings (principal); Z20.2 Contact with and (suspected) exposure to infections with a predominantly sexual mode of transmission
CPT/HCPCS: 81025; 81515; 87491; 87591; 87626; 88175; 99395; 99459

== ENCOUNTER 2025-03-16 10:28 | Outpatient (AMB) | payer MEDICAID, SELFPAY ==
--- NOTE | 2025-03-16 10:40 | A.OFFVIS_ITS ---
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 Doing well with manager completions concerns: skin bump near the anus that was inflamed last week, now better after soaking, concerned due to past MRSA. Currently is not sexually active. History of tubal ligation. She reports regular menses. She denies vaginal itching or irritation. STI screening offered; she accepts. She tries to eat healthy and stays active with exercise. Denies family history of breast or ovarian. FH colon cancer. Had colonoscopy. Last pap smear 2019, negative. [facility] Medical History Fibromyalgia GERD (gastroesophageal reflux disease) Poor weight gain in adult Anxiety MRSA (methicillin resistant Staphylococcus aureus) Migraine with aura Depression Surgical History Hx of tubal ligation Hx of laparoscopy Family History Mother HTN (hypertension) Colon cancer Father Diabetes mellitus Social History Household Members: Children Housing: Apartment Alcohol intake: current Alcohol intake frequency: holidays/special occasions only Patient Tobacco Use Status: Former Tobacco user Years Smoked: 10 Current occupational status: employed 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 Sexual orientation: Straight/Heterosexual Gender identity: Female Female Reproductive History Menstrual Age of Menarche: 13 control method: permanent sterilization Permanent Sterilization: BTL Total pregnancies: 4 Full term: 3 Number of Living Children: 3 Date of last pap smear: 08/27/20 (neg pap and hpv) Review of Systems Const All systems reviewed & are unremarkable except as noted in HPI and below Reports as per HPI Eyes Reports no additional complaints ENT Reports no additional complaints Card Reports no additional complaints Resp Reports no additional complaints GI Reports as per HPI and Reports no additional complaints Reports as per HPI Musc Reports no additional complaints Skin/Breast Reports as per HPI Neuro Reports no additional complaints Psych Reports no additional complaints Endo Reports no additional complaints José Miguel/Lymph Reports no additional complaints Aller/Immun Reports no additional complaints Physical Exam Vital Signs: Last Vital Signs BP 102/62 03/16/25 10:43 BMI result Body Mass Index 24.6 Const General: cooperative, healthy appearing, no acute distress, well developed and alert Orientation/consciousness: patient oriented x3 HEENT Head: Yes normal to inspection Eyes General: appearance normal, both eyes and all related structures Neck Neck: Yes normal visual inspection Thyroid: Thyroid normal Chest Chest palpation & inspection: normal inspection of the chest and other (no puckering, dimpling, peau de orange, retraction, discharge, masses) Breast/axilla inspection: normal inspection of the breasts Breast/axilla palpation: normal palpation of the breasts Resp Effort & Inspection: normal respiratory effort GI Inspection: Yes normal to inspection Palpation (GI): Soft to palpation Rectal Exam - Female: deferred Other: external: small, non inflamed, skin bump left aaron-anal area, no erythema, edema or tenderness General: Yes bladder normal to palpation External Female Exam: normal external appearance and normal appearance of the urethra Speculum Exam - Vagina: normal appearance of the vagina, normal palpation and normal vaginal discharge Speculum Exam - Cervix: normal appearance of the cervix and normal palpation Bimanual exam- vagina & uterus: normal bimanual exam, normal palpation, uterine size normal, bladder normal to palpation, normal palpation and non-tender Bimanual Exam- Adnexa, other: no masses Skin General skin exam: no rashes or lesions noted Rashes: no rashes Neuro General: patient oriented x3 Cognition (Neuro): normal cognition Extrem General: Yes normal to inspection Psych Attitude: cooperative Thought process: Normal thought process present Results AMB Test Urine AMB Test Urine Negative Last Edit by LELIA Bermudez on 03/16/25 11:30 Assessment & Plan Assessment & Plan (1) Well woman exam with routine gynecological exam: Code(s): Z01.419 - Encounter for gynecological examination (general) (routine) without abnormal findings Category: Medical Plan Discussed: Current recommendations for pap smears per ASCCP guidelines. Breast awareness and periodic breast exams. Maintain a healthy lifestyle including a well balanced diet and routine exercise. Use condoms for STI and prevention. Skin findings most likely an ingrown hair, continue warm compresses, if inflamed or becomes painful to follow up as soon as possible for evaluation. Patient verbalizes understanding and agrees to the plan of care. She was given opportunity to ask questions and all questions were answered to the best of my ability. RTO in one year for annual manager completions examination. This note is constructed using voice recognition software. While every effort has been made to ensure accuracy, svp business development errors may have been included. Coding Level of Care Code Est Pt Prev Care 18-39y(89870) Diagnoses Well woman exam with routine gynecological exam Z01.419
[2025-03-16 10:43] VITALS: BP 102/62; BMI 24.6
--- OUTSIDE RECORDS SUMMARY | 2025-03-16 11:40 | XMS_ITS | Encounter Summary ---
Author Organization [employer] Address [address] [place] [address] Care Team Providers Care Warp Doffer Name Role Phone Barbi Ahmadi MD Primary Care Provider + Reason for Visit * Reason Comments Med Refill Encounter Details Date Type Department Care Team (Late st Contact Info) Description 10/21/2024 Refill [facility] [address] [place], [place] [phone] [facility] [address] [place], [place] [phone] Furuncle of buttock Social History Tobacco Use [...] as of this encounter Plan of Treatment Upcoming Encounters Date Type Department Care Team (Late st Contact Info) Description 06/26/2025 10:30 AM EDT Office Visit [facility] [address] [place] [phone] Barbi Ahmadi MD [address] [place] [phone] documented as of this encounter Visit Diagnoses Diagnosis Furuncle of buttock Carbuncle and furuncle of buttock documented in this encounter Additional Health Concerns Assessment Noted Time PHQ-9 Depression Total Score: 9 04/12/20 24 9:00 AM EDT documented as of this encounter Care Teams Warp Doffer Relationship Specialty Start Date End Date Barbi Ahmadi MD [address] [place] [phone] PCP - General Internal Medicine 07/01/24 documented as of this encounter
--- OUTSIDE RECORDS SUMMARY | 2025-03-16 11:40 | XMS_ITS | Encounter Summary ---
Author Organization [employer] Address [address] [place] [address] Care Team Providers Care Medical Transcriber Name Role Phone Barbi Ahmadi MD Primary Care Provider + Reason for Visit * Reason Comments Med Refill Encounter Details Date Type Department Care Team (Late st Contact Info) Description 07/03/2024 Refill [facility] [address] [place], [place] [phone] Waqas Chen FNP Anxiety and depression Social [...] the past 12 months, has t he [employer], gas, oil or water company threatened to [...] Description 06/26/2025 10:30 AM EDT Office Visit [facility] [address] [place] [address] Barbi Ahmadi MD [address] [place] [address] documented as of this encounter Visit Diagnoses Diagnosis Anxiety and depression documented in this encounter Additional Health Concerns Assessment Noted Time PHQ-9 Depression Total Score: 9 04/12/20 24 9:00 AM EDT documented as of this encounter Care Teams Medical Transcriber Relationship Specialty Start Date End Date Barbi Ahmadi MD [address] [place] [address] PCP - General Internal Medicine 07/01/24 documented as of this encounter
--- OUTSIDE RECORDS SUMMARY | 2025-03-16 11:40 | XMS_ITS | Encounter Summary ---
Author Organization [employer] [facility] Address [address] [place] [address] Care Team Providers Care Orthodontic Assistant Name Role Phone Barbi Ahmadi MD Primary Care Provider + Reason for Visit * Reason Onset Date Comments Nurse Triage 11/16/2024 Encounter Details Date Type Department Care Team ([facility] st Contact Info) Description 11/16/2024 Telephone [facility] [address] [place], [place] [phone] Barbi Ahmadi MD [address] [place], [place] [phone] Nurse Triage Social History Tobacco Use Types [...] Reason: Getting worse Please contact pt at [phone]. documented in this encounter Plan of Treatment Upcoming Encounters Date Type Department Care Team (Late st Contact Info) Description 06/26/2025 10:30 AM EDT Office Visit [facility] [address] [place] [phone] Barbi Ahmadi MD [address] [place], [place] [phone] documented as of this encounter Visit Diagnoses Not on filedocumented in this encounter Additional Health Concerns Assessment Noted Time PHQ-9 Depression Total Score: 9 04/12/20 24 9:00 AM EDT documented as of this encounter Care Teams Orthodontic Assistant Relationship Specialty Start Date End Date Barbi Ahmadi MD [address] [place] [address] PCP - General Internal Medicine 07/01/24 documented as of this encounter
--- OUTSIDE RECORDS SUMMARY | 2025-03-16 11:40 | XMS_ITS | Encounter Summary ---
Author Organization [employer] [facility] Address [address]t [place] [address] Care Team Providers Care Deck Steward Name Role Phone Carito Edwards Primary Care Provider [phone] Barbi Ahmadi MD Primary Care Provider + Encounter Details Date Type Department Care Team ([facility] Contact Info) Description 05/29/2023 Orders Only [facility] [address] [place] [address] [phone] Carito Edwards FNP [address] [place] [address] [phone] Bacterial vaginitis (Primary Dx) Social History Tobacco [...] Encounters Date Type Department Care Team (Late Contact Info) Description 06/26/2025 10:30 AM EDT Office Visit [facility] [address] [place] [phone] Barbi Ahmadi MD [address] [place] [address] [phone] documented as of this encounter Visit Diagnoses Diagnosis Bacterial vaginitis- Primary Unspecified vaginitis and vulvovaginitis documented in this encounter Additional Health Concerns Assessment Noted Time PHQ-9 Depression Total Score: 10 023 10:42 AM EDT documented as of this encounter Care Teams Deck Steward Relationship Specialty Start Date End Date Carito Edwards FNP [address] [place] [address] PCP - General Family Medicine 12/16/22 06/30/24 Barbi Ahmadi MD [address] [place] [address] PCP - General Internal Medicine 07/01/24 documented as of this encounter
--- OUTSIDE RECORDS SUMMARY | 2025-03-16 11:40 | XMS_ITS | Clinical Summary ---
Author Organization [employer] Address 75 [facility] 7t [place] [address] Care Team Providers Care Bench Inspector Name Role Phone Barbi Ahmadi MD [...] g 06/23/20 23 Active oxymetazoline (Afrin Nasal [place]) 0.05 % nasal spray Administer 2 sprays [...] DAILY 60 tablet 2 10/25/20 24 Active melatonin 10 MG tabletIndicati ons:Anxiety and depression Take 1 tablet (10 mg) by mouth at bedtime. 30 tablet 1 03/13/20 25 025 Active buPROPion SR (Wellbutrin SR) 150 MG 12 hr tabletIndicati ons:Anxiety and depression Take 1 tablet (150 mg) by mouth in the morning. 30 tablet 1 03/13/20 25 025 Active melatonin 10 MG tabletIndicati ons:Anxiety and depression Take 1 tablet (10 mg) by mouth at bedtime. 30 tablet 1 02/01/20 25 025 Discontinued(Re order (will not trigger notification to Pharmacy)) buPROPion SR (Wellbutrin SR) 150 MG 12 hr tabletIndicati ons:Anxiety and depression Take 1 tablet (150 mg) by mouth in the morning. 30 tablet 1 02/01/20 25 025 Discontinued(Re order (will not trigger notification [...] or Lyrica in the future. 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 Any issues or concerns, call [facility]. All her questions were answered and I [...] organization. Date Type Department Care Team Description 03/07/2025 Telephone [facility] MEDICINE [address] [place] [address] Barbi Ahmadi MD june01/13/2025 Population Health Risk Score [facility] (C3) Department [address] [address] Provider, Population Health Generic from Last 3 Months Immunizations Immunization Administration Dates Next Due DTaP 04/30/1994, 4,06/19/1993,1990,1990 HPV, Bivalent 09/03/2007 Hep B, Adolescent or Pediatric 12/11/1998,1997,01/16/1998 Influenza injectable quadriv alent IIV4 with preservative 01/21/2016 Influenza injectable quadriv alent preservative free 09/06/2021,11/25/2018 Influenza, IIV3, injectable 09/03/2007, 2 Influenza, Split (incl. lawrence fied surface antigen) 01/23/2014 MMR 01/15/1994,06/15/1991 OPV, Trivalent 01/15/1994, 2,06/15/1991,1989 Pfizer Covid-19 Vaccine 12+ 01/29/2022, [...] 10/21/2024 9:10 AM EST Plan of Treatment Upcoming Encounters Date Type Department Care Team (Late st Contact Info) Description 06/26/2025 10:30 AM EDT Office Visit [facility] MEDICINE [address] [facility] [place] [address] Barbi Ahmadi MD [address] [facility] [place] [address] Health Maintenance Due Date Last Done Comments Alcohol/Substance Use Screening 2002 HPV Vaccines (2 - 3-dose series) 10/01/2007 09/03/2007 COVID-19 Vaccine ( season) 2024 01/29/2022, 01/29/2022, 05/21/2021, Additional history exists Influenza Vaccine (#1) 2024 , 11/25/2018, 01/21/2016, Additional history exists SDOH Screening 04/04/2025 04/04/2024 Depression Screening 04/12/2025 04/12/2024, 04/12/20 24 HPV/Cotest 08/27/2025 08/27/2020, 08/27/2020 Pap Smear 08/27/2025 08/27/2020 Family Planning (PISQ) 10/21/2025 10/21/2024 Tobacco Screening 03/13/2026 03/13/2025 DTaP/Tdap/Td Vaccines (8 - Td or Tdap) [...] on patient's age to complete this topic Hepatitis A Vaccines Aged Out No long er eligible based on patient's age to complete this topic Meningococcal B Vaccine Aged Out No l onger eligible based on patient's age to complete [...] Procedure Name Priority Date/Time Associated Diagnosis Comments HEPATITIS C AB W/REFL TO HCV RNA, QN, PCR Routine 01/08/2024 11:05 AM EST HIV 1/2 ANTIGEN/ANTIBODY, FOURTH GENERATION W/RFL Routine 01/08/2024 11:05 AM EST ZZZ HISTORICAL HPV E6/E7 RFLX OLGA 16 18/45 Routine 08/27/2020 2:55 PM EDT HM PAP/HPV Routine 08/27/2020 from Last 3 Months or Most Recently Relevant to Health Maintenance Results * Hepatitis C Antibody with Reflex to HCV, RNA, Quantitative, Real-Time PCR (01/08/2024 11:05 AM EST) Hepatitis C Antibody Nonreactive Nonreactive [facility] Comment:Antibodies to HCV no t detected; does not exclude early acuteHCV infection. 01/08/2024 11:0 5 AM EST 01/08/2024 11:05 AM EST us Generic External Data Provider LAB BLOOD ORDERAB LES Final Result [facility] [address] [place] [phone] * HIV-1/2 Antigen and Antibodies, Fourth Generation, with Reflexes (01/08/2024 11:05 AM EST) HIV AB/AG Nonreactive Nonreactive [facility] Comment:HIV-1 p24 Ag and/or HIV-1/HIV-2 Ab not detected.A test result that is nonreactive does not exclude thepossibility of exposure to or infection with HIV-1 and/orHIV-2. Nonreactive results in this assay for individualswith prior exposure to HIV-1 and/or HIV-2 may be due toantigen and antibody levels that are below the limit ofdetection of this assay.The [employer] HIV Ag/Ab Combo assay result andsupplemental assay results should be interpreted inconjunction with the patient's clinical presentation,history and other laboratory results. If the results areinconsistent with clinical evidence, additional testing issuggested to confirm the result. 01/08/2024 11:0 5 AM EST 01/08/2024 11:05 AM EST us Generic External Data Provider LAB BLOOD ORDERAB LES Final Result [facility] [address] [place] [phone] * HPV E6/E7 RFLX OLGA 16 18/45 (08/27/2020 2:55 PM EDT) HPV 16 RNA [facility] HPV 18/45 RNA [facility] HPV E6 E7 ADD [facility] HPV mRNA E6/E7 Not Detected Not Detected [facility] Comment: This test was performed using the APTIMA HPV Assay ([employer] This assay detects E6/E7 viral messenger RNA (mRNA) from 14 high-risk HPV types (16,18,31,33,35,39,45,51,52,56,58,59,66,68). The analytical performance characteristics of this assay have been determined by [employer]. The modifications have not been cleared or approved by the FDA. This assay has been validated pursuant to the CLIA regulations and is used for clinical purposes. THIS TEST WAS PERFORMED AT: [facility] [address] [place] [address],[address] [place], [place] ??[phone] GRECIA WILKS MD 08/27/2020 2:55 PM EDT Historical Provider HISTORICAL/NON ORDERABLE LABS Final Result [facility] [address] * Pap Smear (08/27/2020) Pap smear performed us Historical Provider HEALTH MAINTENANCE Final Result from Last 3 Months or Most Recently Relevant to Health Maintenance Insurance [email or web address] C3 Care Teams Bench Inspector Relationship Specialty Start Date End Date Barbi Ahmadi MD [address] [place] [phone] PCP - General Internal Medicine 07/01/24
--- OUTSIDE RECORDS SUMMARY | 2025-03-16 11:40 | XMS_ITS | Encounter Summary ---
Author Organization [employer] [facility] Address [address] [facility] 7t [place] [address] Care Team Providers Care Biofuels Plant Operations Engineer Name Role Phone Vivian Contreras MD Primary Care Provider Carito Munroe Primary Care Provider [phone] Barbi Ahmadi MD Primary Care Provider + Encounter Details Date Type Department Care Team (Late st Contact Info) Description 09/23/2022 Abstract [facility] MEDICINE [address] [place] [address] [phone] ProviderValdo MD Social History Tobacco Use Types Packs/Day Years [...] Description 06/26/2025 10:30 AM EDT Office Visit [facility] MEDICINE [address] [place] [address] Barbi Ahmadi MD [address] [place] [address] documented as of this encounter Procedures Procedure Name Priority Date/Time Associated Diagnosis Comments COLONOSCOPY Routine 02/04/2022 PAP/HPV Routine 08/27/2020 documented in this encounter Results * Hm Colonoscopy (02/04/2022) Colonoscopy performed us Historical Provider HEALTH MAINTENANCE Final Result * Hm Pap Smear (08/27/2020) HM Pap smear performed us Historical Provider HEALTH MAINTENANCE Final Result documented in this encounter Visit Diagnoses Not on filedocumented in this encounter Care Teams Biofuels Plant Operations Engineer Relationship Specialty Start Date End Date Vivian Contreras MD PCP - General Family Medicine 09/22/19 12/15/22 Carito Edwards FNP [address] [place], [place] [phone] PCP - General Family Medicine 12/16/22 06/30/24 Barbi Ahmadi MD [address] [place] [address] PCP - General Internal Medicine 07/01/24 documented as of this encounter
== END 2025-03-16 11:19 | disposition home or self-care (01) ==
LOC: HO.HWS 10:28
PROVIDERS: PCP Internal Medicine; Visit Provider Advanced Practice Midwife
DX: Z01.419 Encounter for gynecological examination (general) (routine) without abnormal findings (principal); Z32.02 Encounter for pregnancy test, result negative
CPT/HCPCS: 99395; 99459

== ENCOUNTER 2025-03-16 11:28 | Outpatient (REF) | payer MEDICAID, SELFPAY ==
[2025-03-22 15:27] LABS: HPV Genotype 16 Negative (Negative); HPV Genotype 18 Negative (Negative); HPV High Risk Negative (Negative)
== END 2025-03-16 11:29 | disposition home or self-care (01) ==
LOC: HO.LNP 11:28
PROVIDERS: Visit Provider Advanced Practice Midwife
DX: Z01.419 Encounter for gynecological examination (general) (routine) without abnormal findings (principal)
CPT/HCPCS: 87626; 88175

== ENCOUNTER 2025-05-08 09:33 | Outpatient (AMB) | payer MEDICAID, SELFPAY ==
--- NOTE | 2025-05-08 09:41 | MHC.OFFVIS ---
Vital Signs 05/08/25 09:52 Height 5 ft 7 in Weight 151 lb BMI 23.6 BP 114/80 Blood Pressure Location Rt brachial Position Sitting Pulse 68 Pulse Source Pulse Oximeter Pulse Oximetry (%) 99 Oxygen Delivery Method Room Air Intake Visit Reasons: Gastroesophageal reflux disease (GERD) Intake Note: Est pt for mgmt of GERD. TIKA 2023. CC; C.O. epigastric pain, early satiety, and unintentional W/L within the last month. Pt states that she has been serving herself very small portions of food which she still cannot finish sometimes due to feeling like something is preventing her food from moving through her stomach. Pt reports that she has not been able to successfully obtain her pantoprazole from her pharmacy as they are not filling it for an unspecified reason. Fire Control Officer Required: No Accompanied by: Self / Same As Patient Allergies Seasonal Allergies Allergy (Intermediate, Verified 05/08/25 09:42) Itchy Eyes trazodone Allergy (Intermediate, Verified 05/08/25 09:42) FACIAL SWELLING, swelling HPI HPI Gastroesophageal reflux disease (GERD): Details: LAST VISIT: Constipation GERD (gastroesophageal reflux disease) Postprandial epigastric pain Postprandial abdominal bloating Plan Patient will try to take MiraLax in the morning and will take Colace in the evening. Patient was encouraged to increase fluid intake and activity to promote better bowel motility. I will start her on pantoprazole in the morning and she can take famotidine at bedtime. Discussed with patient avoiding dietary triggers and late night snacking. Staying upright for minimal 3 hours after meals discussed with patient. Low FODMAP diet discussed with patient. List of food recommended as well as list of food to avoid given to patient. I will see patient in 5 weeks. If she continues to have epigastric pain we will send her for upper endoscopy. Patient is agreeable to this plan and verbalizes understanding of instructions. She was given the opportunity to ask questions and all questions answered. ? Thank you for allowing me to participate in her care New famotidine (Pepcid) 20 mg PO BEDTIME 30 tabs 3RF K21.9 pantoprazole take one tablet half an hour before breakfast 40 mg PO DAILY 30 tabs 2RF K21.9 polyethylene glycol 3350 (Miralax) 17 grams PO DAILY 510 grams 2RF Refilled docusate sodium 100 mg PO BEDTIME 90 caps 4RF K59.00 Discontinued omeprazole Discontinued Reason: Doctor's Order 20 mg PO BID 180 caps 2RF TODAY'S VISIT Patient is here today for requested visit. Patient has not followed up since January of 2024. Patient was given script for pantoprazole and was doing well. It symptoms of acid reflux were suppressed when taking it. Pharmacy has not refilled a script for patient for the has few months. Patient reports epigastric pain postprandially, abdominal bloating. Acid reflux. Patient is only able to eat small amount of meals feeling full fairly quickly. Reports that she is moving her bowels better now. She is using MiraLax as needed. Usually reports stool soft. Patient reports occasional nausea without vomiting. Reports dyspepsia without dysphagia or odynophagia. Denies melena, hematochezia. Patient reports that she did lose 5 lb in the last month. Patient reports she is been going to the gym often. Feels like her losing weight is probably related to not eating as much as before. [facility] Medical History (Updated 05/08/25 @ 10:24 by Ashanti Hou, [facility]) Fibromyalgia GERD (gastroesophageal reflux disease) Poor weight gain in adult Anxiety MRSA (methicillin resistant Staphylococcus aureus) Migraine with aura Depression Surgical History Hx of tubal ligation Hx of laparoscopy Family History Mother HTN (hypertension) Colon cancer Father Diabetes mellitus Social History Household Members: Children Housing: Apartment Alcohol intake: current Alcohol intake frequency: holidays/special occasions only Patient Tobacco Use Status: Former Tobacco user Years Smoked: 10 Current occupational status: employed Current occupation: [employer] Sexual orientation: Straight/Heterosexual Gender identity: Female Female Reproductive History Menstrual Age of Menarche: 13 Physical Exam Vital Signs: Last Vital Signs Pulse 68 05/08/25 09:52 BP 114/80 05/08/25 09:52 Pulse Ox 99 05/08/25 09:52 Oxygen Delivery Method Room Air 05/08/25 09:52 BMI result Body Mass Index 23.6 Assessment & Plan Assessment & Plan (1) GERD (gastroesophageal reflux disease): Code(s): K21.9 - Gastro-esophageal reflux disease without esophagitis Category: Medical Qualifiers: Esophagitis presence: esophagitis presence not specified Qualified Code(s): K21.9 - Gastro-esophageal reflux disease without esophagitis (2) Postprandial epigastric pain: Code(s): R10.13 - Epigastric pain (3) Postprandial abdominal bloating: Code(s): R14.0 - Abdominal distension (gaseous) (4) Constipation: Code(s): K59.00 - Constipation, unspecified Qualifiers: Constipation type: slow transit constipation Qualified Code(s): K59.01 - Slow transit constipation Plan Patient will start taking pantoprazole daily. Avoid dietary triggers and late night snacking. Will check for H pylori, rule out chronic pancreatitis, celiac. Will check vitamin-D, thyroid studies, B12, folate. Patient will be sent for upper endoscopy. Message sent to surgical schedulers. If positive for H pylori will treat empirically. Patient is agreeable to current plan of care and verbalizes understanding of instructions. She was given the opportunity to ask questions and all questions answered. Thank you for allowing me to participate in her care Orders: Orders H Pylori Breath Test Today K21.9 - Gastro-esophageal reflux disease without esophagitis Transglutaminase IgA Today R10.9 - Unspecified abdominal pain TSH reflex Free T4 Today K59.00 - Constipation, unspecified Vitamin B12 and Folate Today R19.7 - Diarrhea, unspecified Vitamin D 25-OH (D2 and D3) Today E55.9 - Vitamin D deficiency, unspecified Lipase Today R10.9 - Unspecified abdominal pain Medications: Refilled pantoprazole 40 mg PO QAM 90 tabs 3RF K21.9 - Gastro-esophageal reflux disease without esophagitis Coding Level of Care Code Est Pt Level 4 (99634) Diagnoses Gastroesophageal reflux disease, unspecified whether esophagitis present K21.9 Esophagitis presence: esophagitis presence not specified Postprandial epigastric pain R10.13 Postprandial abdominal bloating R14.0 Slow transit constipation K59.01 Constipation type: slow transit constipation Time Spent (min) 40 Comment 25 minutes spent with patient and additional 15 minutes spent reviewing her records
[2025-05-08 09:52] VITALS: BP 114/80; PULSE 68; O2SAT 99; BMI 23.6
--- OUTSIDE RECORDS SUMMARY | 2025-05-08 10:06 | XMS_ITS | Clinical Summary ---
Author Organization [facility] Address [address] [place] [address] Care Team Providers Care Therapeutic Riding Instructor Name Role Phone Unavailable Primary Care Provider Unavailabl e Source Comments PLEASE NOTE, if this patient is a minor, it may be UNLAWFUL to discuss sensitive information that is contained in these records (such as FAMILY PLANNING, MENTAL HEALTH or SUBSTANCE ABUSE) with the minor patient's parent or other person without the patient's specific authorization.[facility] Social History Tobacco Use Types Packs/Day Years Used Date Smoking Tobacco: Never Assessed Comments Unknown Sex and Gender Information Value Date Recorded Sex Assigned at Female 05/03/2025 7:11 AM PDT Legal Sex Female 7:11 AM PDT Gender Identity Female 05/03/2025 7:11 AM PDT Sexual Orientation Not on file Plan of Treatment Upcoming Encounters Date Type Department Care Team (Late st Contact Info) Description 07/06/2025 2:00 PM EDT Behavioral Health Visit [facility] [address] [place] [phone] Neisha López APRN [address] [place] [address] Health Maintenance Due Date Last Done Comments Anxiety Screening 1990 Diabetes Screening 1990 HPV Screening 1990 Pap + HPV 1990 Tobacco Screening 1990 Relationship Safety Screening/Counseling 2005 Hypertension Screening (#1) 2008 Cervical Cancer Screening 2011 Pap Smear 2011 [id number] ( season) 2024 01/29/2022, 05/21/2021, 04/29/2021 Alcohol and Drug Screen 11/02/2024 Depression Annual Screen 11/02/2024 Imm-Influenza (#1) 2025 09/06/2021, 0 11/25/2018, 01/21/2016, Additional history exists Imm-DTaP/Tdap/Td (7 - Td or Tdap) 10/16/2027 10/16/2017, 08/09/2012, 04/30/1994, Additional history exists Imm-Hepatitis B Completed 12/11/1998, 05/1998, 01/16/1998 HIV Screening Completed 01/08/2024, 01/08/2024 Hepatitis C Screening Completed 01/08/2024 Cervical Ablation/Cold-Knife Conization Discontinued Cervical Cryotherapy Discontinued Colposcopy Discontinued Endometrial Biopsy Discontinued Excision/Leep Discontinued HPV Genotyping Discontinued Vaginal Pap Discontinued Vulvoscopy Discontinued Insurance [facility]
== END 2025-05-08 10:36 | disposition home or self-care (01) ==
LOC: HO.HGI 09:34
PROVIDERS: PCP Internal Medicine; Visit Provider Nurse Practitioner Family
DX: K21.9 Gastro-esophageal reflux disease without esophagitis (principal); R10.13 Epigastric pain; R14.0 Abdominal distension (gaseous); K59.01 Slow transit constipation
CPT/HCPCS: 99214

== ENCOUNTER 2025-05-08 09:33 | Outpatient (REF) | payer MEDICAID, SELFPAY ==
--- OUTSIDE RECORDS SUMMARY | 2025-05-08 11:29 | XMS_ITS | Encounter Summary ---
Author Organization [employer] Address [address] [place] [address] Care Team Providers Care E Commerce Director Name Role Phone Barbi Amhadi MD Primary Care Provider + Reason for Visit * Reason Comments Med Refill Encounter Details Date Type Department Care Team (Late st Contact Info) Description 07/03/2024 Refill [facility] [address] [place], [place] [id number] Waqas Chen FNP Anxiety and depression Social [...] the past 12 months, has t he [employer], gas, oil or water company threatened to [...] documented as of this encounter Care Teams E Commerce Director Relationship Specialty Start Date End Date Barbi Ahmadi MD [address] [place] [id number] PCP - General Internal Medicine 07/01/24 documented as of this encounter
[2025-05-08 12:23] LABS: Folate 10.6 ng/mL (> or = 4.0); Vitamin B12 381 pg/mL (200-900)
[2025-05-08 12:57] LABS: Lipase 17 U/L (8-78)
[2025-05-14 12:19] LABS: Vitamin D 25-OH, D2 <4 ng/mL; Vitamin D 25-OH, D3 24 ng/mL; Vitamin D 25-OH, Total 24 ng/mL (30-100)
== END 2025-05-08 09:34 | disposition home or self-care (01) ==
LOC: HO.LAB 09:33
PROVIDERS: PCP Internal Medicine; Visit Provider Nurse Practitioner Family
DX: K21.9 Gastro-esophageal reflux disease without esophagitis (principal); K59.01 Slow transit constipation; R10.13 Epigastric pain; R14.0 Abdominal distension (gaseous); R19.7 Diarrhea, unspecified; E55.9 Vitamin D deficiency, unspecified
CPT/HCPCS: 36415; 82306; 82607; 82746; 83013; 83690; 84443; 86364; 99212

== ENCOUNTER 2025-10-12 11:18 | Outpatient (REF) | payer MEDICAID, SELFPAY ==
[2025-10-12 14:09] LABS: MANUAL DIFF FLAG NO
[2025-10-12 14:11] LABS: Hematocrit 39.5 % (37.0-47.0); Hemoglobin 13.1 g/dl (12.0-16.0); Imm Gran Abs Auto 0.03 X10*3/uL (0.00-0.03); Imm Gran Pct Auto 0.4 % (0.0-0.4); Lymphocytes Absolute Auto 2.6 X10*3/uL (1.2-4.9); Mean Corpuscular HGB Conc 33.2 g/dl (31.0-35.0); Mean Corpuscular Hemoglobin 28.9 pg (27.0-33.0); Mean Corpuscular Volume 87.2 fL (80.0-98.0); NRBC Abs Auto 0.000 X10*3/uL (0.0-0.012); NRBC Pct Auto 0.0 /100WBC (0.0-0.2); Platelet Count 244 X10*3/uL (160-400); Red Blood Count 4.53 X10*6/uL (4.20-5.50); White Blood Count 6.8 X10*3/uL (4.8-10.8)
[2025-10-12 14:27] LABS: Anion Gap 9 (12-20); Blood Urea Nitrogen 9 mg/dL (9-16); Calcium 9.6 mg/dL (8.4-10.2); Carbon Dioxide 25 mmol/L (22-29); Chloride 109 mmol/L (96-108); Estimated Glomerular Filt Rate > 60; Potassium 4.2 mmol/L (3.3-5.1); Sodium 139 mmol/L (135-145)
== END 2025-10-12 11:19 ==
LOC: HO.HHCL 11:18
PROVIDERS: PCP Internal Medicine; Visit Provider Internal Medicine
DX: G43.909 Migraine, unspecified, not intractable, without status migrainosus (principal)
CPT/HCPCS: 36415; 80048; 85025